=== PATIENT | female | born 1950 | race Caucasian/White ===

== ENCOUNTER → 2017-02-03 | Outpatient (CLI) | payer MEDICARE, OTHER | LOC: RAD 13:00 | PROVIDERS: ATTEND Physician Assistant | DX: R22.1 Localized swelling, mass and lump, neck (principal) | CPT/HCPCS: 76536 ==

== ENCOUNTER → 2017-07-12 | Outpatient (CLI) | payer MEDICARE, OTHER ==
--- NOTE | 2017-07-12 17:50 | RADIOLOGY REPORT (SQ) ---
EXAM DESCRIPTION: CHEST PA/LAT COMPLETED DATE/TIME: 07/12/2017 5:04 pm REASON FOR STUDY: SHORTNESS OF BREATH COMPARISON: 03/17/2016 EXAM PARAMETERS: NUMBER OF VIEWS: two views TECHNIQUE: Digital Frontal and Lateral radiographic views of the chest acquired. RADIATION DOSE: NA LIMITATIONS: none FINDINGS: LUNGS AND PLEURA: There is mild subsegmental atelectasis versus scarring in each lung. Th ere is no acute infiltrate or effusion. No mass is seen. MEDIASTINUM AND HILAR STRUCTURES: No masses or contour abnormalities. HEART AND VASCULAR STRUCTURES: Heart normal size. No evidence for failure. BONES: No acute findings. HARDWARE: Sternotomy wires. OTHER: No other significant finding. IMPRESSION: Chronic changes with no acute cardiopulmonary disease. TECHNICAL DOCUMENTATION: JOB ID: [id number] [employer]- All Rights Reserved
== END ==
LOC: RAD 16:43
PROVIDERS: ATTEND Physician Assistant
DX: R06.02 Shortness of breath (principal)
CPT/HCPCS: 71020

== ENCOUNTER 2017-11-22 04:44 | Inpatient (IN) | payer MEDICARE, OTHER ==
--- NOTE | 2017-11-22 06:54 | ER Document Report ---
ED General - General Time Seen by Provider: 11/22/17 06:51 Notes: 66-year-old female to the emergency department chief complaint shortness of breath. States that she has had increasing shortness of breath over the last several weeks. Increased shortness of breath with ambulation. Increased shortness of breath when lying. History of COPD as well as hypertrophic cardiomyopathy. Intermittent chest pain. TRAVEL OUTSIDE OF THE [place] IN LAST 30 DAYS: No - HPI Onset: Last week Onset/Duration: Gradual Severity: Moderate - Related Data Allergies/Adverse Reactions: No Known Allergies Allergy (Verified 07/31/16 11:37) Past Medical History - General Information source: Patient - Social History Smoking Status: Former Smoker Cigarette use (# per day): Yes Chew tobacco use (# tins/day): No Frequency of alcohol use: Occasional Drug Abuse: None Lives with: Alone Family History: Reviewed & Not Pertinent - Past Medical History Cardiac Medical History: Reports: Hx Hypercholesterolemia Denies: Hx Heart Attack, Hx Hypertension Pulmonary Medical History: Reports: Hx COPD Denies: Hx Asthma Neurological Medical History: Denies: Hx Cerebrovascular Accident, Hx Seizures GI Medical History: Denies: Hx Hepatitis, Hx Hiatal Hernia, Hx Ulcer Musculoskeltal Medical History: Reports Hx Arthritis - RA Infectious Medical History: Denies: Hx Hepatitis Past Surgical History: Reports: Hx Open Heart Surgery - CABG. Denies: Hx Mastectomy, Hx Pacemaker - next month for surg - Immunizations Hx Diphtheria, Pertussis, Tetanus Vaccination: Yes Hx Pneumococcal Vaccination: 08/02/14 Review of Systems - Review of Systems Constitutional: No symptoms reported. denies: Fever, Malaise, Weakness EENT: No symptoms reported. denies: Blurred vision, Ear pain, Difficulty swallowing, Mouth pain Cardiovascular: No symptoms reported, Chest pain, Orthopnea, Dyspnea. denies: Syncope, Dizziness, Lightheaded, Edema, Paroxysmal Nocturnal Dysp Respiratory: No symptoms reported, Cough, Short of breath, Wheezing Gastrointestinal: No symptoms reported. denies: Abdominal pain, Diarrhea, Nausea, Vomiting Genitourinary: No symptoms reported. denies: Burning, Dysuria, Discharge Female Genitourinary: No symptoms reported Musculoskeletal: No symptoms reported. denies: Back pain, Joint pain, Joint swelling Skin: No symptoms reported Hematologic/Lymphatic: No symptoms reported. denies: Anemia, Blood clots, Easy bleeding, Easy bruising Neurological/Psychological: No symptoms reported. denies: Confusion, Dementia, Depression Physical Exam - Vital signs Interpretation: Normal - General General appearance: Appears well, Alert - HEENT Head: Normocephalic, Atraumatic Eyes: Normal Pupils: PERRL - Respiratory Respiratory status: No respiratory distress Chest status: Nontender Breath sounds: Wheezing Chest palpation: Normal - Cardiovascular Rhythm: Regular Heart sounds: Normal auscultation Murmur: No - Abdominal Inspection: Normal Distension: No distension Bowel sounds: Normal Tenderness: Nontender Organomegaly: No organomegaly - Back Back: Normal, Nontender - Extremities General upper extremity: Normal inspection, Nontender, Normal color, Normal ROM , Normal temperature General lower extremity: Normal inspection, Nontender, Normal color, Normal ROM , Normal temperature, Normal weight bearing. No: Estrellita's sign - Neurological Neuro grossly intact: Yes Cognition: Normal Orientation: AAOx4 Christopher Coma Scale Eye Opening: Spontaneous [place] Coma Scale Verbal: Oriented [place] Coma Scale Motor: Obeys Commands Christopher Coma Scale Total: 15 Speech: Normal Motor strength normal: LUE, RUE, LLE, RLE Sensory: Normal - Psychological Associated symptoms: Normal affect, Normal mood - Skin Skin Temperature: Warm Skin Moisture: Dry Skin Color: Normal Course - Re-evaluation Re-evalutation: 11/22/17 07:01 This is a well-appearing female in no acute distress with mild wheeze. Prior smoker. Prior history of open heart surgery with hypertrophic cardiomyopathy. At this time we will give her breathing treatments and prednisone. Will get chest x-ray, labs and reassess. 11/22/17 08:[address] Reyes. Recommends repeat cardiac troponin prior to admission based on the patient's significant cardiac history. Will repeat her troponin. We will give a shot of Lasix. If the second troponin negative will admit to the hospital for congestive heart failure. 11/22/17 09:53 Dr. Reyes is seen patient. No large significant pulmonary defect noted on CT scan but awaiting official radiology read. Troponin has not gone up. Will admit at this time for CHF and further treatment. - Laboratory Result Diagrams: 11/22/17 05:18 11/22/17 05:18 Laboratory results interpreted by me: 11/22/17 11/22/17 11/22/17 05:18 05:18 05:18 RDW 15.5 H BUN 27 H Glucose 114 H AST 79 H ALT 57 H Creatine Kinase CK-MB (CK-2) 4.87 H NT-Pro-B Natriuret Pep 2650 H 11/22/17 05:18 RDW BUN Glucose AST ALT Creatine Kinase 325 H CK-MB (CK-2) NT-Pro-B Natriuret Pep - EKG Interpretation by Al EKG shows normal: Sinus rhythm [place]/QRS: LBBB When compared to previous EKG there are: No significant change Discharge - Discharge Clinical Impression: Heart failure Qualifiers: Heart failure type: unspecified Heart failure chronicity: acute on chronic Qualified Code(s): I50.9 - Heart failure, unspecified Disposition: ADMITTED INPATIENT Admitting Provider: Leonel Unit Admitted: [facility] - Dr. Reyes Referrals: RISHABH REYES MD [Primary Care Provider] - Follow up as needed
[2017-11-22] MEDS ORDERED: PREDNISONE 20 MG TABLET PO ONE (06:58)
[2017-11-22] MEDS ORDERED: IPRATROPIUM BROMIDE 0.02% NEB 0.5 MG/2.5 ML AMPUL NEB ONE (06:58)
--- NOTE | 2017-11-22 07:14 | RADIOLOGY REPORT (SQ) ---
EXAM DESCRIPTION: CHEST PA/LAT CLINICAL HISTORY: SOB COMPARISON: 07/12/2017 FINDINGS: Frontal and lateral views of the chest. Cardiomegaly. Bilateral interstitial opacities. Prior median sternotomy. Atherosclerotic calcification aortic arch. Linear left midlung opacity is stable likely representing discoid atelectasis or scar. No pneumothorax. No definite pleural effusion. Leads overlie the chest. Upper abdominal soft tissues are unremarkable. IMPRESSION: 1. Cardiomegaly with interstitial pulmonary edema.
[2017-11-22] MEDS ORDERED: FUROSEMIDE INJ/PF 40 MG/4 ML SDV IV ONE (07:52)
[2017-11-22 07:55] LABS: ABSOLUTE EOSINOPHILS # (AUTO) 0.1 10^3/uL (0.0-0.6); ABSOLUTE LYMPHOCYTES (AUTO) 2.1 10^3/uL (0.5-4.7); ABSOLUTE MONOCYTES (AUTO) 0.5 10^3/uL (0.1-1.4); ABSOLUTE NEUT (AUTO) 2.8 10^3/uL (1.7-8.2); BASOPHILS % (AUTO) 0.4 % (0-2); EOSINOPHILS % (AUTO) 1.6 % (0-6); HEMATOCRIT 36.1 % (36.0-47.0); LYMPHOCYTES % (AUTO) 38.1 % (13-45); MEAN CORPUSCULAR HEMOGLOBIN 29.7 pg (27.0-33.4); MEAN CORPUSCULAR HGB CONC 33.2 g/dL (32.0-36.0); MEAN CORPUSCULAR VOLUME 90 fl (80-97); MONOCYTES % (AUTO) 9.1 % (3-13); PLATELET COUNT 212 10^3/uL (150-450); RED BLOOD COUNT 4.03 10^6/uL (3.72-5.28); RED CELL DISTRIBUTION WIDTH 15.5 % (11.5-14.0); SEGMENTED NEUTROPHILS % (AUTO) 50.8 % (42-78); TOTAL CELLS COUNTED % (AUTO) 100 %; WHITE BLOOD COUNT 5.4 10^3/uL (4.0-10.5)
[2017-11-22 07:58] LABS: INTERNATIONAL RATION (INR) 0.96; PROTHROMBIN TIME 13.5 SEC (11.4-15.4)
[2017-11-22 07:59] LABS: PARTIAL THROMBOPLASTIN TIME 32.8 SEC (23.5-35.8)
--- NOTE | 2017-11-22 07:59 | EKG REPORT ---
SEVERITY:- ABNORMAL ECG - SINUS RHYTHM LEFT BUNDLE BRANCH BLOCK : Confirmed by: Chris Mohr MD 22-Nov-2017 07:58:23
[2017-11-22 08:08] LABS: ALANINE AMINOTRANSFERASE 57 U/L (9-52); ALBUMIN 4.5 g/dL (3.5-5.0); ALKALINE PHOSPHATASE 109 U/L (38-126); ANION GAP 12 (5-19); ASPARTATE AMINO TRANSFERASE 79 U/L (14-36); BILIRUBIN,DIRECT 0.2 mg/dL (0.0-0.4); BILIRUBIN,TOTAL 0.5 mg/dL (0.2-1.3); BLOOD UREA NITROGEN 27 mg/dL (7-20); CALCIUM 9.7 mg/dL (8.4-10.2); CARBON DIOXIDE 25 mmol/L (22-30); CHLORIDE 107 mmol/L (98-107); GLUCOSE 114 mg/dL (75-110); POTASSIUM 4.5 mmol/L (3.6-5.0); SODIUM 143.8 mmol/L (137-145); TOTAL PROTEIN 7.2 g/dL (6.3-8.2)
[2017-11-22 08:19] LABS: CREATINE KINASE MB 4.87 ng/mL (<4.55); TROPONIN I 0.031 ng/mL
[2017-11-22] MEDS ORDERED: ACETAMINOPHEN 325 MG TABLET PO PRN (09:43)
--- NOTE | 2017-11-22 10:01 | RADIOLOGY REPORT (SQ) ---
EXAM DESCRIPTION: CTA CHEST COMPLETED DATE/TIME: 11/22/2017 9:44 am REASON FOR STUDY: sob COMPARISON: Two-view chest 11/22/2017 CT chest 03/11/2016, 10/11/2014 TECHNIQUE: CT scan of the chest performed using helical scanning technique with dynamic intravenous contrast injection. Images reviewed with lung, soft tissue and bone windows. Reconstructed coronal and sagittal MPR images reviewed. Additional 3 dimensional post-processing performed to develop Maximal Intensity Projection images (ID P). All images stored on PACS. All CT scanners at this facility use dose modulation, iterative reconstruction, and/or weight based d osing when appropriate to reduce radiation dose to as low as reasonably achievable (ALARA). [facility]: Dose Right [facility]: CareDose [facility]: Dose Right [facility]: Teradose 4D [facility]: Nangate CONTRAST TYPE AND DOSE: contrast/concentration: Isovue 370.00 mg/ml; Total Contrast Delivered: 73.0 ml; Total Saline Delivered: 76.8 ml Contrast bolus optimized for the pulmonary arteries. Not diagnostic for the aorta. RENAL FUNCTION: Creatinine 0.8 RADIATION DOSE: CT Rad equipment meets quality standard of care and radiation dose reduction techniq ues were employed. CTDIvol: 19.3 - 19.8 mGy. DLP: 715 mGy-cm. . LIMITATIONS: None. FINDINGS: LUNGS AND PLEURA: There is thickening of interlobular septa worrisome for mild interstitia l edema. This is similar compared to chest film 11/22/2017. Set chronic reticulonodular infiltrate is seen in the posterior aspect right upper lobe, and medial a spect left upper lobe similar compared to studies dating back to 2014. However, in the posterior rig ht upper lobe on axial image 31, a 5 mm lung parenchymal nodule is present, and on axial image 36 in the periphery of the right upper lobe, a 6 mm nodule is present. There is chronic volume loss and bronchiectasis in the right middle lobe and lingula, similar compare d to studies dating back to 2014. No pleural effusion. No pneumothorax. Airways are patent. AORTA AND GREAT VESSELS: No aneurysm. Contrast bolus not optimized for the aorta. HEART: No pericardial effusion. Mild aortic valve calcification. Old sternotomy for CABG. Mild card iomegaly PULMONARY ARTERIES: No emboli visualized in the main pulmonary arteries or the segmental branches. HILAR AND MEDIASTINAL STRUCTURES: Few small less than 7 mm short axis precarinal, AP window and bilat eral hilar lymph nodes HARDWARE: None in the chest. UPPER ABDOMEN: 3 cm cyst right upper pole kidney unchanged. THYROID AND OTHER SOFT TISSUES: No masses. No adenopathy. BONES: No acute or significant finding. 3D MIPS: Confirm above findings. OTHER: No other significant finding. IMPRESSION: No CT angio evidence of acute pulmonary emboli or thoracic aortic dissection. Thickened interlobular septa from mild interstitial edema. 5 mm and 6 mm nodules in the periphery of the right upper lobe, new compared to prior studies. Consi rojelio follow-up as per Fleischner recommendations COMMENT: FLEISCHNER CRITERIA FOR FOLLOW-UP OF PULMONARY NODULES Incidentally detected new nodules in persons 35 or older. HIGH RISK: History of smoking or other known risk factors. 6-8mm single solid nodule: LOW RISK: CT 6-12 mo; then consider CT 18-24 mo. HIGH RISK: CT 6-12 mo; th en CT 18-24 mo. Quality ID # [id number]: Final reports with documentation of one or more dose reduction techniques (e.g., Au tomated exposure control, adjustment of the mA and/or kV according to patient size, use of iterative reconstruction technique) TECHNICAL DOCUMENTATION: JOB ID: [id number] [employer]- All Rights Reserved
[2017-11-22 11:21] LABS: APPEARANCE,URINE CLEAR; BILIRUBIN,URINE NEGATIVE (NEGATIVE); COLOR,URINE COLORLESS; GLUCOSE, URINE NEGATIVE (NEGATIVE); KETONES,URINE NEGATIVE (NEGATIVE); LEUKOCYTE ESTERASE,URINE NEGATIVE (NEGATIVE); NITRITE,URINE NEGATIVE (NEGATIVE); PROTEIN,URINE NEGATIVE (NEGATIVE); URINE SPECIFIC GRAVITY 1.009; UROBILINOGEN,URINE NEGATIVE mg/dL (<2.0)
[2017-11-22] MEDS ORDERED: METRONIDAZOLE TP PRN ×2 (11:46→13:00)
[2017-11-22] MEDS ORDERED: ADAPALENE TP PRN ×2 (11:46→13:00)
[2017-11-22] MEDS ORDERED: ENOXAPARIN SODIUM INJ 40 MG/0.4 ML DISP.SYRIN SUBCUT ONE (12:00)
[2017-11-22] MEDS ORDERED: LEVOFLOXACIN 500 MG TABLET PO ONE (12:30)
[2017-11-22] MEDS: IPRATROPIUM/ALBUTEROL 0.5-2.5 MG/3 ML AMPUL NEB SCH ×2 (13:04→20:13)
[2017-11-22 13:28] LABS: CREATINE KINASE MB 4.78 ng/mL (<4.55); TROPONIN I 0.02 ng/mL
[2017-11-22] MEDS: FUROSEMIDE INJ/PF 20 MG/2 ML SDV IV SCH ×2 (15:23→22:12)
[2017-11-22] MEDS: METHYLPREDNISOLONE INJ 40 MG/1 ML SDV IV SCH ×2 (15:24→22:13)
--- NOTE | 2017-11-22 15:36 | PDOC H&P ---
History of Present Illness Admission Date/PCP: 11/22/17 10:16 RISHABH REYES MD Patient complains of: Shortness of the breath History of Present Illness: RACHEAL ALBA is a 66 year old female Presents to the ED with increasing shortness of breath over the last several days. History of asthma in the past as well as history of smoking in the past she has a cough is dry nonproductive she denies hemoptysis her PPD was negative dates unknown is no history of chronic lung disease as a child or adolescent she denies exposure to passive smoke as a child but admits to exposure to smoke passive smoke as an adult as well as the fact that she herself smoked. 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 She admits to tightness in her chest usually occurs with rest and decreases somewhat with movement she sleeps on one pillow occasional PND no nocturnal cough no edema. 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 the lungIn patients was referred at the pulmonary as outpatient seen the and also patient was methotrexate was stopped by the clinical team manager and currently taking the newer medications Patient also have a heart muscle surgery done the [place] due to the cardiomyopathy currently see the cardiology at [place] and was all okay according to the patient When I saw the patient in the ER patient was comfortably lying in the bed no chest pain no shortness of the breath but feeling some tightness in the chest and a CT angiogram was ordered because of the patient was short of breath but move around was negative for any pulmonary embolism Past Medical History Cardiac Medical History: Reports: Hyperlipidema Denies: Myocardial Infarction, Hypertension Pulmonary Medical History: Reports: Chronic Obstructive Pulmonary Disease (COPD) Denies: Asthma Neurological Medical History: Denies: Seizures GI Medical History: Denies: Hepatitis, Hiatal Hernia Musculoskeltal Medical History: Reports: Arthritis - RA Musculoskeletal History Note: Rheumatoid arthritis currently see the clinical team manager Hematology: Denies: Anemia, Sickle Cell Disease Past Surgical History Past Surgical History: Reports: Other - Cardiac heart muscle surgery Denies: Amputation, Mastectomy, Pacemaker - next month for surg Social History Lives with: Alone Smoking Status: Former Smoker Frequency of Alcohol Use: Social Hx Recreational Drug Use: No Hx Prescription Drug Abuse: No Family History Family History: COPD Parental Family History Reviewed: Yes Children Family History Reviewed: Yes Sibling(s) Family History Reviewed.: Yes Medication/Allergy Home Medications: Adapalene [Differin] 45 gm TP ASDIR PRN 11/22/17 Bisoprolol Fumarate [Zebeta 5 mg Tablet] 1 tab PO DAILY 11/22/17 Gabapentin [Neurontin 300 mg Capsule] 300 mg PO QHS 11/22/17 Metronidazole [Metrogel] 60 gm TP ASDIR PRN 11/22/17 Pantoprazole Sodium [Protonix] 40 mg PO DAILY 11/22/17 Paroxetine HCl [Paxil] 40 mg PO DAILY 11/22/17 Sulfasalazine [Azulfidine] 500 mg PO BID 11/22/17 Allergies/Adverse Reactions: No Known Allergies Allergy (Verified 07/31/16 11:37) Review of Systems Constitutional: ABSENT: chills, fever(s), headache(s), weight gain, weight loss Eyes: ABSENT: visual disturbances Ears: ABSENT: hearing changes Cardiovascular: PRESENT: chest pain, dyspnea on exertion. ABSENT: edema, orthropnea, palpitations Respiratory: PRESENT: cough, dyspnea. ABSENT: hemoptysis Gastrointestinal: ABSENT: abdominal pain, constipation, diarrhea, hematemesis, hematochezia, nausea, vomiting Genitourinary: ABSENT: dysuria, hematuria Musculoskeletal: ABSENT: joint swelling Integumentary: ABSENT: rash, wounds Neurological: ABSENT: abnormal gait, abnormal speech, confusion, dizziness, focal weakness, syncope Psychiatric: ABSENT: anxiety, depression, homidical ideation, suicidal ideation Endocrine: ABSENT: cold intolerance, heat intolerance, menstrual abnormalities, polydipsia, polyuria Hematologic/Lymphatic: ABSENT: easy bleeding, easy bruising, lymphadenopathy Physical Exam Vital Signs: Temp Pulse Resp BP Pulse Ox 53 L 16 146/66 H 96 11/22/17 13:05 11/22/17 13:05 11/22/17 09:16 11/22/17 09:16 Intake & Output 11/21/17 11/22/17 11/23/17 06:59 06:59 06:59 Weight 80.5 kg General appearance: PRESENT: no acute distress, well-developed, well-nourished Head exam: PRESENT: atraumatic, normocephalic Eye exam: PRESENT: conjunctiva pink, EOMI, PERRLA. ABSENT: scleral icterus Ear exam: PRESENT: normal external ear exam Mouth exam: PRESENT: moist, tongue midline Neck exam: PRESENT: full ROM. ABSENT: carotid bruit, JVD, lymphadenopathy, thyromegaly Respiratory exam: PRESENT: decreased breath sounds, wheezes Cardiovascular exam: PRESENT: RRR. ABSENT: diastolic murmur, rubs, systolic murmur Pulses: PRESENT: normal dorsalis pedis pul, +2 pedal pulses bilateral Vascular exam: PRESENT: normal capillary refill GI/Abdominal exam: PRESENT: normal bowel sounds, soft. ABSENT: distended, guarding, mass, organolmegaly, rebound, tenderness Rectal exam: PRESENT: deferred Extremities exam: PRESENT: pedal edema Musculoskeletal exam: PRESENT: ambulatory Neurological exam: PRESENT: alert, awake, oriented to person, oriented to place , oriented to time, oriented to situation, CN II-XII grossly intact. ABSENT: motor sensory deficit Psychiatric exam: PRESENT: appropriate affect, normal mood. ABSENT: homicidal ideation, suicidal ideation Skin exam: PRESENT: dry, intact, warm. ABSENT: cyanosis, rash Results Laboratory Results: 11/22/17 11:07 Urine Color COLORLESS Urine Appearance CLEAR Urine pH 6.0 Ur Specific [place] 1.009 Urine Protein NEGATIVE Urine Glucose (UA) NEGATIVE Urine Ketones NEGATIVE Urine Blood SMALL H Urine Nitrite NEGATIVE Ur Leukocyte Esterase NEGATIVE Urine WBC (Auto) 0 Urine RBC (Auto) 0 11/22/17 11/22/17 12:25 12:25 Creatine Kinase 300 H CK-MB (CK-2) 4.78 H Troponin I 0.020 Impressions: Chest X-Ray 11/22/17 00:00 IMPRESSION: 1. Cardiomegaly with interstitial pulmonary edema. Chest/Abdomen CTA 11/22/17 09:05 IMPRESSION: No CT angio evidence of acute pulmonary emboli or thoracic aortic dissection. Thickened interlobular septa from mild interstitial edema. 5 mm and 6 mm nodules in the periphery of the right upper lobe, new compared to prior studies. Consider follow-up as per Fleischner recommendations Assessment & Plan - Diagnosis (1) Shortness of breath Is this a current diagnosis for this admission?: Yes Plan: With the multifactorial including the congestive heart failure with some COPD component Patient CT angiogram is negative for any pulmonary embolisms initial EKG and cardiac enzymes also negative Will continue some nebulizer treatments continues to IV steroidAnd IV Lasix We will consult the pulmonary and consult the cardiology for further evaluations (2) Congestive heart failure Qualifiers: Heart failure type: diastolic Heart failure chronicity: unspecified Qualified Code(s): I50.30 - Unspecified diastolic (congestive) heart failure Is this a current diagnosis for this admission?: Yes Plan: Scheduled echocardiogram of the heart and consult the cardiology (3) COPD with acute exacerbation Is this a current diagnosis for this admission?: Yes Plan: 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 we will review the CT scan report with the pulmonary continues to current medications: Nebulizer (4) Hypertension Qualifiers: Hypertension type: essential hypertension Qualified Code(s): I10 - Essential (primary) hypertension Is this a current diagnosis for this admission?: Yes Plan: Currently all stable (5) Rheumatoid arthritis Qualifiers: Rheumatoid arthritis location: unspecified site Is this a current diagnosis for this admission?: Yes Plan: Patient's currently follow outpatients clinical team manager (6) Hypertrophic cardiomyopathy Is this a current diagnosis for this admission?: Yes Plan: Scheduled echocardiogram consult the cardiology - Time Time Spent: 30 to 50 Minutes Medications reviewed and adjusted accordingly: Yes Anticipated discharge: Home Within: Other - Inpatient Certification Medical Necessity: Need Close Monitoring Due to Risk of Patient Decompensation, Need For IV Fluids, Need for IV Antibiotics Post Hospital Care: D/C Forest Management Teacher Documentation - Plan Summary Plan Summary: Discussed with the patient and the discussed with the home planning consultant salesperson about patient' s current conditions and the test reports admit the patient in IMCU and further evaluate
--- NOTE | 2017-11-22 16:13 | PDOC CONSULTATION ---
Consultation Consult Date: 11/22/17 Attending physician:: RISHABH REYES Consult reason:: dyspnea History of Present Illness Admission Date/PCP: 11/22/17 10:16 RISHABH REYES MD History of Present Illness: RACHEAL ALBA is a 66 year old female Presents to the ED with increasing shortness of breath over the last several days. History of asthma in the past as well as history of smoking in the past she has a cough is dry nonproductive she denies hemoptysis her PPD was negative dates unknown is no history of chronic lung disease as a child or adolescent she denies exposure to passive smoke as a child but admits to exposure to smoke passive smoke as an adult as well as the fact that she herself smoked. 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 She admits to tightness in her chest usually occurs with rest and decreases somewhat with movement she sleeps on one pillow occasional PND no nocturnal cough no edema. She admits to snoring restless sleep nocturia 1-2 times per night unrestful sleep and excessive daytime somnolence Past Medical History Cardiac Medical History: Reports: Hyperlipidema Denies: Myocardial Infarction, Hypertension Pulmonary Medical History: Reports: Chronic Obstructive Pulmonary Disease (COPD) Denies: Asthma Neurological Medical History: Denies: Seizures GI Medical History: Denies: Hepatitis, Hiatal Hernia Musculoskeltal Medical History: Reports: Arthritis - RA Hematology: Denies: Anemia, Sickle Cell Disease Past Surgical History Past Surgical History: Denies: Amputation, Mastectomy, Pacemaker - next month for surg Social History Information Source: Patient, Dr. Office Lives with: Alone Smoking Status: Former Smoker Cigarettes Packs Per Day: 2 Number of Years Smokin Last Time Smoked: 30 yrs Passive smoke exposure as: Adult Frequency of Alcohol Use: Social Hx Recreational Drug Use: No Hx Prescription Drug Abuse: No Do you have pets?: Yes Have you had any respiratory illnesses as a child?: No Have you been exposed to any sick contacts recently?: No Have you had any recent respiratory illnesses?: Yes Have you travelled outside of [place] in the past 12 months?: No Family History Family History: COPD Parental Family History Reviewed: Yes Children Family History Reviewed: Yes Sibling(s) Family History Reviewed.: Yes Medication/Allergy Home Medications: Adapalene [Differin] 45 gm TP ASDIR PRN 11/22/17 Bisoprolol Fumarate [Zebeta 5 mg Tablet] 1 tab PO DAILY 11/22/17 Gabapentin [Neurontin 300 mg Capsule] 300 mg PO QHS 11/22/17 Metronidazole [Metrogel] 60 gm TP ASDIR PRN 11/22/17 Pantoprazole Sodium [Protonix] 40 mg PO DAILY 11/22/17 Paroxetine HCl [Paxil] 40 mg PO DAILY 11/22/17 Sulfasalazine [Azulfidine] 500 mg PO BID 11/22/17 Allergies/Adverse Reactions: No Known Allergies Allergy (Verified 07/31/16 11:37) Review of Systems Constitutional: PRESENT: chills. ABSENT: anorexia, fatigue, fever(s), headache( s), night sweats Eyes: ABSENT: visual disturbances Ears: ABSENT: hearing changes Nose, Mouth, and Throat: ABSENT: mouth pain, sore throat Cardiovascular: PRESENT: chest pain, dyspnea on exertion. ABSENT: orthropnea, palpitations Respiratory: PRESENT: dyspnea. ABSENT: hemoptysis Gastrointestinal: ABSENT: abdominal pain, bloating, coffee ground emesis, dysphagia, hematemesis, hematochezia, melena Genitourinary: PRESENT: nocturia. ABSENT: difficulty urinating, dysuria, hematuria Integumentary: ABSENT: pruritus, rash Neurological: ABSENT: abnormal gait, abnormal movements, abnormal speech, confusion, convulsions, dizziness, focal weakness, memory loss, numbness, paresthesias, restless legs, tremor(s), weakness Psychiatric: ABSENT: hallucinations, suicidal ideation Endocrine: ABSENT: cold intolerance, heat intolerance, menstrual abnormalities, polydipsia, polyuria Hematologic/Lymphatic: ABSENT: easy bleeding, easy bruising, lymphadenopathy Physical Exam Vital Signs: Temp Pulse Resp BP Pulse Ox 50 L 20 146/66 H 96 11/22/17 09:16 11/22/17 09:16 11/22/17 09:16 11/22/17 09:16 Intake & Output 11/21/17 11/22/17 11/23/17 06:59 06:59 06:59 Weight 80.5 kg General appearance: PRESENT: no acute distress, cooperative, disheveled, obese, well-developed, well-nourished. ABSENT: hard of hearing Head exam: PRESENT: atraumatic, normocephalic Eye exam: PRESENT: conjunctiva pale, EOMI, PERRLA. ABSENT: nystagmus, periorbital swelling, scleral icterus Mouth exam: PRESENT: dry mucosa, neck supple, tongue midline Neck exam: ABSENT: carotid bruit, JVD, lymphadenopathy, thyromegaly, tracheal deviation, tracheostomy Respiratory exam: PRESENT: decreased breath sounds, prolonged expiratory phas, rhonchi, symmetrical, unlabored. ABSENT: accessory muscle use, chest wall tenderness, clear to auscultation lauren, crackles, rales, retraction, stridor, tachypnea Cardiovascular exam: PRESENT: RRR, +S1, +S2. ABSENT: systolic murmur, tachycardia Pulses: PRESENT: normal radial pulses GI/Abdominal exam: PRESENT: diminished bowel sounds, soft Extremities exam: PRESENT: full ROM. ABSENT: calf tenderness, clubbing, joint swelling Musculoskeletal exam: PRESENT: ambulatory, full ROM, normal inspection. ABSENT : deformity, dislocation Neurological exam: PRESENT: alert, awake Psychiatric exam: PRESENT: normal mood Skin exam: PRESENT: dry Results Laboratory Results: 11/22/17 11:07 Urine Color COLORLESS Urine Appearance CLEAR Urine pH 6.0 Ur Specific [place] 1.009 Urine Protein NEGATIVE Urine Glucose (UA) NEGATIVE Urine Ketones NEGATIVE Urine Blood SMALL H Urine Nitrite NEGATIVE Ur Leukocyte Esterase NEGATIVE Urine WBC (Auto) 0 Urine RBC (Auto) 0 Impressions: Chest X-Ray 11/22/17 00:00 IMPRESSION: 1. Cardiomegaly with interstitial pulmonary edema. Chest/Abdomen CTA 11/22/17 09:05 IMPRESSION: No CT angio evidence of acute pulmonary emboli or thoracic aortic dissection. Thickened interlobular septa from mild interstitial edema. 5 mm and 6 mm nodules in the periphery of the right upper lobe, new compared to prior studies. Consider follow-up as per Fleischner recommendations Assessment & Plan - Diagnosis (1) Snoring Is this a current diagnosis for this admission?: Yes Plan: Needs a sleep study after this (2) Obesity Qualifiers: Body mass index: BMI 33.0-33.9 Is this a current diagnosis for this admission?: Yes (3) Hypertrophic cardiomyopathy Is this a current diagnosis for this admission?: Yes Plan: Dr. Jcarlos Carmona assembler brazer [facility] (4) History of tobacco use Is this a current diagnosis for this admission?: Yes - Time Time Spent with patient: 55 minutes spent in the emergency room
[2017-11-22] MEDS ORDERED: SULFASALAZINE 500 MG PO SCH (18:00)
[2017-11-22 18:37] LABS: CREATINE KINASE MB 4.46 ng/mL (<4.55); TROPONIN I 0.02 ng/mL
--- NOTE | 2017-11-22 19:55 | PDOC CONSULTATION ---
Consultation Consult Date: 11/22/17 Attending physician:: RISHABH REYES Consult reason:: Shortness of breath History of Present Illness Admission Date/PCP: 11/22/17 10:16 RISHABH REYES MD Patient complains of: Shortness of breath History of Present Illness: RACHEAL ALBA is a 66 year old femal presents to the ED with increasing shortness of breath over the last several days. History of asthma in the past as well as history of smoking in the past. She has a cough is dry nonproductive. She denies hemoptysis. Her PPD was negative dates unknown. There is no history of chronic lung disease as a child or adolescent. She denies exposure to passive smoke as a child but admits to exposure to smoke passive smoke as an adult as well as the fact that she herself smoked. 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 She admits to tightness in her chest usually occurs with rest and decreases somewhat with movement she sleeps on one pillow occasional PND no nocturnal cough no edema. She admits to snoring, restless sleep, nocturia 1-2 times per night unrestful sleep and excessive daytime somnolence. This history was reviewed and confirmed. Patient claims that she had a sleep study about a year ago which she reportedly was negative. It was performed at a sleep lab on [facility]. 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 She does describe history of congestive heart failure. Patient claims stiffening and thickening of the heart. Patient claims she had a myomectomy. I believe she probably had hypertrophic obstructive cardiomyopathy. A defibrillator or pacemaker was not placed at that time although there was some talk about this being placed. This procedure were done at [facility]. Past Medical History Cardiac Medical History: Reports: Hyperlipidema Denies: Myocardial Infarction, Hypertension Pulmonary Medical History: Reports: Chronic Obstructive Pulmonary Disease (COPD) Denies: Asthma Neurological Medical History: Denies: Seizures GI Medical History: Denies: Hepatitis, Hiatal Hernia Musculoskeltal Medical History: Reports: Arthritis - RA Hematology: Denies: Anemia, Sickle Cell Disease Past Surgical History Past Surgical History: Reports: Other - Cardiac heart muscle surgery. Patient describes history of myomectomy. Denies: Amputation, Mastectomy, Pacemaker - next month for surg Social History Information Source: Patient Lives with: Alone Smoking Status: Former Smoker Cigarettes Packs Per Day: 2 Number of Years Smokin Last Time Smoked: 30 yrs Frequency of Alcohol Use: Social Hx Recreational Drug Use: No Hx Prescription Drug Abuse: No - Advance Directive Resuscitation Status: Full Code Surrogate healthcare decision maker:: Daughter Family History Family History: COPD Parental Family History Reviewed: Yes Children Family History Reviewed: Yes Sibling(s) Family History Reviewed.: Yes Medication/Allergy Home Medications: Adapalene [Differin] 45 gm TP ASDIR PRN 11/22/17 Bisoprolol Fumarate [Zebeta 5 mg Tablet] 1 tab PO DAILY 11/22/17 Gabapentin [Neurontin 300 mg Capsule] 300 mg PO QHS 11/22/17 Metronidazole [Metrogel] 60 gm TP ASDIR PRN 11/22/17 Pantoprazole Sodium [Protonix] 40 mg PO DAILY 11/22/17 Paroxetine HCl [Paxil] 40 mg PO DAILY 11/22/17 Sulfasalazine [Azulfidine] 500 mg PO BID 11/22/17 Aspirin [Ecotrin 81 mg EC Tablet] 81 mg PO DAILY 11/23/17 Bisoprolol Fumarate [Zebeta 5 mg Tablet] 1 tab PO DAILY 11/23/17 Ranolazine [Ranexa] 1,000 mg PO DAILY 11/23/17 Allergies/Adverse Reactions: No Known Allergies Allergy (Verified 07/31/16 11:37) Review of Systems Review of Systems: Please see history of present illness and past medical history as wall. Constitutional: No fever or chills reported. Head : No recent chronic headaches, recent head injury. Eyes: No recent eye pain, diplopia, redness, discharge, acute visual changes. Ears: No recent chronic ear pain, acute hearing loss, ear discharge. Oral cavity: No recent ulcerations, bleeding, oral cavity discomfort. Neck: No recent acute neck pain reported. Hematologic: No recent easy bruising or bleeding or hematologic malignancy reported. Lymphatic: No recent lymphatic malignancy, chronic lymphadenopathy reported yet Cardiovascular system review: See history of present illness. Patient denied any history of sustained palpitations, syncope, near syncope. Respiratory system review: No recent chronic cough, hemoptysis, blood clots in the lungs reported. Mild Shortness of breath on exertion Gastrointestinal system review: Negative for any recent acute or chronic abdominal pain, hematemesis, melena, recent change in bowel habits. Genitourinary system review: No recent acute or chronic hematuria, flank pain, UTI etc. reported. Skin system review: Negative for any recent abnormal bruising, no rash, no pruritus reported. Neurologic: No prior history of strokes, mini strokes, seizure disorder. Patient describes history of snoring, waking up choking. Psychologic: No history of major psychosis or major depression reported. Musculoskeletal: Minor aches and pains reported. No acute joint swelling reported. Endocrine: No recent polyuria, polydipsia, recent heat or cold intolerance. Physical Exam Vital Signs: Temp Pulse Resp BP Pulse Ox 99.0 F 64 18 117/56 L 98 11/22/17 18:00 11/22/17 18:00 11/22/17 18:00 11/22/17 18:00 11/22/17 18:00 Intake & Output 11/21/17 11/22/17 11/23/17 06:59 06:59 06:59 Weight 80.5 kg Exam: GENERAL: well-nourished and in no acute distress. Alert and oriented x3 HEAD: Atraumatic, normocephalic. EYES: Pupils equal round and reactive to light, extraocular movements intact, sclera anicteric, conjunctiva are normal. ENT: TMs normal, nares patent, oropharynx clear without exudates. Moist mucous membranes. No oral ulcerations or bleeding gums noted NECK: supple without lymphadenopathy. Trachea is central. No cervical or axillary lymphadenopathy noted. Carotids are 2+, JVD WNL LUNGS: Respiration seems nonlabored, no significant accessory muscle action noted. Breath sounds clear to auscultation bilaterally and equal noted. No wheezes rales or rhonchi noted. No significant dullness noted on percussion. CHEST: Palpation of the chest wall shows no significant chest wall tenderness. No other significant abnormalities noted. 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 ABDOMEN: Soft, no significant tenderness appreciated, normoactive bowel sounds. No guarding, no rebound. No rigidity noted . No masses appreciated. EXTREMITIES: Pedal pulses are 1-2+, no calf tenderness noted. No clubbing or cyanosis.trace to 1+ pedal edema noted NEUROLOGICAL: Focused neurological exam showed no significant neurologic deficit. Normal speech, no focal weakness appreciated. PSYCH: Normal mood, normal affect. Judgment and insight within normal limits. SKIN: No significant ecchymosis, rash, ulcerations or signs of pruritus noted. MUSCULOSKELETAL EXAM: No significant joint swelling noted. Results Laboratory Results: 11/22/17 11:07 Urine Color COLORLESS Urine Appearance CLEAR Urine pH 6.0 Ur Specific [place] 1.009 Urine Protein NEGATIVE Urine Glucose (UA) NEGATIVE Urine Ketones NEGATIVE Urine Blood SMALL H Urine Nitrite NEGATIVE Ur Leukocyte Esterase NEGATIVE Urine WBC (Auto) 0 Urine RBC (Auto) 0 11/22/17 11/22/17 11/22/17 12:25 12:25 17:25 Creatine Kinase 300 H 268 H CK-MB (CK-2) 4.78 H Troponin I 0.020 11/22/17 17:25 Creatine Kinase CK-MB (CK-2) 4.46 Troponin I 0.020 EKG Comments: Sinus rhythm, left axis deviation, left bundle branch block type pattern Impressions: Chest X-Ray 11/22/17 00:00 IMPRESSION: 1. Cardiomegaly with interstitial pulmonary edema. Chest/Abdomen CTA 11/22/17 09:05 IMPRESSION: No CT angio evidence of acute pulmonary emboli or thoracic aortic dissection. Thickened interlobular septa from mild interstitial edema. 5 mm and 6 mm nodules in the periphery of the right upper lobe, new compared to prior studies. Consider follow-up as per Fleischner recommendations Assessment & Plan - Diagnosis (1) Dyspnea Qualifiers: Dyspnea type: dyspnea on exertion Qualified Code(s): R06.09 - Other forms of dyspnea Is this a current diagnosis for this admission?: Yes (2) COPD with acute exacerbation Is this a current diagnosis for this admission?: Yes (3) Congestive heart failure Qualifiers: Heart failure type: diastolic Heart failure chronicity: unspecified Qualified Code(s): I50.30 - Unspecified diastolic (congestive) heart failure Is this a current diagnosis for this admission?: Yes (4) Hypertension Qualifiers: Hypertension type: essential hypertension Qualified Code(s): I10 - Essential (primary) hypertension Is this a current diagnosis for this admission?: Yes (5) Hypertrophic cardiomyopathy Is this a current diagnosis for this admission?: Yes (6) Obesity Qualifiers: Obesity type: unspecified obesity type Body mass index: BMI 33.0-33.9 Is this a current diagnosis for this admission?: Yes (7) Chest tightness Is this a current diagnosis for this admission?: Yes - Notes Notes: Dyspnea: Most likely related to combination of CHF and COPD with exacerbation. Patient currently feeling much better. This is related to both diuresis and treatment of COPD. A 2D echo was ordered. Further evaluation will be planned after review of 2D echo. Congestive heart failure: BNP is elevated. Patient has abnormal EKG with left bundle branch block pattern. At this point patient will benefit from CHF pathway. Further plans will follow after results of 2D echo are available. Hypertension: Blood pressure goal should be less than 135/85 in patients with CHF. Cardiomyopathy: Presumably hypertrophic cardiomyopathy based on history of surgery. Patient has been told to report any overt syncope, near syncope. Chest Tightness: possible CHF and diastolic dysfuction vs COPD vs angina. Enzymes and ekgs currently negative. Obesity: Patient will benefit from weight loss. Sleep disorder: I believe patient has high probability of underlying sleep apnea. It may be worthwhile to consider repeating the sleep study. This will be scheduled as an outpatient. - Time Time Spent: 30 to 50 Minutes - CODE STATUS was discussed, patient remains full code. Surrogate decision-maker patient's friend. Multiple medical problems were addressed. More than 50% of the time spent coordinating care, discussing management plans with involved caregivers. Management plans discussed with involved personnels. Medical decision making was of moderate to high complexity , patient's has multiple comorbidities. Medications reviewed and adjusted accordingly: Yes
[2017-11-22] MEDS: GABAPENTIN 300 MG CAPSULE PO SCH (22:13)
[2017-11-22] MEDS: SULFASALAZINE 500 MG TABLET.DR PO SCH (22:14)
[2017-11-23 00:07] LABS: CREATINE KINASE MB 3.69 ng/mL (<4.55); TROPONIN I 0.023 ng/mL
[2017-11-23] MEDS: IPRATROPIUM/ALBUTEROL 0.5-2.5 MG/3 ML AMPUL NEB SCH ×4 (02:01→20:24)
[2017-11-23] MEDS: METHYLPREDNISOLONE INJ 40 MG/1 ML SDV IV SCH ×3 (06:13→22:00)
[2017-11-23] MEDS: LANSOPRAZOLE 30 MG TAB.RAP.DR PO SCH (06:13)
[2017-11-23] MEDS: FUROSEMIDE INJ/PF 20 MG/2 ML SDV IV SCH ×3 (06:13→22:00)
[2017-11-23 07:05] LABS: HEMATOCRIT 37.6 % (36.0-47.0); HEMOGLOBIN 12.9 g/dL (12.0-15.5); MEAN CORPUSCULAR HEMOGLOBIN 30.2 pg (27.0-33.4); MEAN CORPUSCULAR HGB CONC 34.2 g/dL (32.0-36.0); MEAN CORPUSCULAR VOLUME 88 fl (80-97); PLATELET COUNT 224 10^3/uL (150-450); RED BLOOD COUNT 4.26 10^6/uL (3.72-5.28); WHITE BLOOD COUNT 10.2 10^3/uL (4.0-10.5)
[2017-11-23 07:24] LABS: ALANINE AMINOTRANSFERASE 50 U/L (9-52); ALKALINE PHOSPHATASE 89 U/L (38-126); ANION GAP 18 (5-19); ASPARTATE AMINO TRANSFERASE 49 U/L (14-36); BILIRUBIN,DIRECT 0.2 mg/dL (0.0-0.4); BILIRUBIN,TOTAL 1.1 mg/dL (0.2-1.3); BLOOD UREA NITROGEN 33 mg/dL (7-20); CALCIUM 10.8 mg/dL (8.4-10.2); CARBON DIOXIDE 25 mmol/L (22-30); CHLORIDE 100 mmol/L (98-107); GLUCOSE 193 mg/dL (75-110); SODIUM 142.5 mmol/L (137-145)
[2017-11-23 07:53] LABS: ABSOLUTE LYMPHOCYTES# (MANUAL) 0.4 10^3/uL (0.5-4.7); ABSOLUTE MONOCYTES # (MANUAL) 0.2 10^3/uL (0.1-1.4); ABSOLUTE NEUTROPHILS# (MANUAL) 9.6 10^3/uL (1.7-8.2); ANISOCYTOSIS SLIGHT; BASOPHILS % (MANUAL) 0 % (0-2); LYMPHOCYTES % (MANUAL) 4 % (13-45); MONOCYTES % (MANUAL) 2 % (3-13); POIKILOCYTOSIS 1+; SEGMENTED NEUTROPHILS % (MAN) 94 % (42-78); TOTAL CELLS COUNTED 100
[2017-11-23 07:54] LABS: OVALOCYTES 1+; PLATELET COMMENT ADEQUATE
[2017-11-23 08:00] LABS: EOSINOPHILS % (MANUAL) 0 % (0-6)
--- NOTE | 2017-11-23 08:56 | PDOC PROGRESS REPORT ---
Subjective Progress Note for:: 11/23/17 Subjective:: Patient is currently feeling better still have some shortness of the breath but feeling better compared to yesterday patients came Patient's denied any chest pain denied any nausea no vomiting Patient seen by Dr. Whitaker And Dr. Agustin Since family on the bedside discussed with the all the test reports the pending echocardiogram Reason For Visit: SOB/ACUTE CHF Physical Exam Vital Signs: Temp Pulse Resp BP Pulse Ox 98.1 F 78 16 131/57 H 95 11/23/17 03:21 11/23/17 07:00 11/23/17 03:21 11/23/17 03:22 11/23/17 03:21 Intake & Output 11/22/17 11/23/17 11/24/17 06:59 06:59 06:59 Intake Total 204 Balance 204 Weight 77.4 kg General appearance: PRESENT: no acute distress, well-developed, well-nourished Head exam: PRESENT: atraumatic, normocephalic Eye exam: PRESENT: conjunctiva pink, EOMI, PERRLA. ABSENT: scleral icterus Ear exam: PRESENT: normal external ear exam Mouth exam: PRESENT: moist, tongue midline Neck exam: PRESENT: full ROM. ABSENT: carotid bruit, JVD, lymphadenopathy, thyromegaly Respiratory exam: PRESENT: clear to auscultation lauren Cardiovascular exam: PRESENT: RRR. ABSENT: diastolic murmur, rubs, systolic murmur Pulses: PRESENT: normal dorsalis pedis pul, +2 pedal pulses bilateral Vascular exam: PRESENT: normal capillary refill GI/Abdominal exam: PRESENT: normal bowel sounds, soft. ABSENT: distended, guarding, mass, organolmegaly, rebound, tenderness Rectal exam: PRESENT: deferred Extremities exam: ABSENT: pedal edema Musculoskeletal exam: PRESENT: ambulatory Neurological exam: PRESENT: alert, awake, oriented to person, oriented to place , oriented to time, oriented to situation, CN II-XII grossly intact. ABSENT: motor sensory deficit Psychiatric exam: PRESENT: appropriate affect, normal mood. ABSENT: homicidal ideation, suicidal ideation Skin exam: PRESENT: dry, intact, warm. ABSENT: cyanosis, rash Results Laboratory Results: 11/23/17 06:37 11/23/17 06:37 11/22/17 11/23/17 11/23/17 11:07 06:37 06:37 WBC 10.2 RBC 4.26 Hgb 12.9 Hct 37.6 MCV 88 MCH 30.2 MCHC 34.2 RDW 15.0 H Plt Count 224 Seg Neutrophils % Not Reportable Lymphocytes % Not Reportable Monocytes % Not Reportable Eosinophils % Not Reportable Basophils % Not Reportable Absolute Neutrophils Not Reportable Absolute Lymphocytes Not Reportable Absolute Monocytes Not Reportable Absolute Eosinophils Not Reportable Absolute Basophils Not Reportable Sodium 142.5 Potassium 4.0 Chloride 100 Carbon Dioxide 25 Anion Gap 18 BUN 33 H Creatinine 0.90 Est GFR ( Amer) > 60 Est GFR (Non-Af Amer) > 60 Glucose 193 H Calcium 10.8 H Total Bilirubin 1.1 AST 49 H ALT 50 Alkaline Phosphatase 89 Total Protein 8.0 Albumin 5.0 Urine Color COLORLESS Urine Appearance CLEAR Urine pH 6.0 Ur Specific [place] 1.009 Urine Protein NEGATIVE Urine Glucose (UA) NEGATIVE Urine Ketones NEGATIVE Urine Blood SMALL H Urine Nitrite NEGATIVE Ur Leukocyte Esterase NEGATIVE Urine WBC (Auto) 0 Urine RBC (Auto) 0 11/22/17 11/22/17 11/22/17 12:25 12:25 17:25 Creatine Kinase 300 H 268 H CK-MB (CK-2) 4.78 H Troponin I 0.020 NT-Pro-B Natriuret Pep 11/22/17 11/22/17 11/22/17 17:25 23:25 23:25 Creatine Kinase 229 H CK-MB (CK-2) 4.46 3.69 Troponin I 0.020 0.023 NT-Pro-B Natriuret Pep 11/23/17 06:37 Creatine Kinase CK-MB (CK-2) Troponin I NT-Pro-B Natriuret Pep 1890 H Impressions: Chest X-Ray 11/22/17 00:00 IMPRESSION: 1. Cardiomegaly with interstitial pulmonary edema. Chest/Abdomen CTA 11/22/17 09:05 IMPRESSION: No CT angio evidence of acute pulmonary emboli or thoracic aortic dissection. Thickened interlobular septa from mild interstitial edema. 5 mm and 6 mm nodules in the periphery of the right upper lobe, new compared to prior studies. Consider follow-up as per Fleischner recommendations Assessment & Plan - Diagnosis (1) Shortness of breath Is this a current diagnosis for this admission?: Yes Plan: With the multifactorial including the congestive heart failure with some COPD component Patient CT angiogram is negative for any pulmonary embolisms initial EKG and cardiac enzymes also negative Will continue some nebulizer treatments continues to IV steroidAnd IV Lasix We will consult the pulmonary and consult the cardiology for further evaluations (2) Congestive heart failure Qualifiers: Heart failure type: diastolic Heart failure chronicity: unspecified Qualified Code(s): I50.30 - Unspecified diastolic (congestive) heart failure Is this a current diagnosis for this admission?: Yes Plan: Continues IV Lasix will wait for the echo reportFollow with cardiology (3) COPD with acute exacerbation Is this a current diagnosis for this admission?: Yes Plan: 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 we will review the CT scan report with the pulmonary continues to current medications: Nebulizer (4) Hypertension Qualifiers: Hypertension type: essential hypertension Qualified Code(s): I10 - Essential (primary) hypertension Is this a current diagnosis for this admission?: Yes Plan: Currently all stable (5) Rheumatoid arthritis Qualifiers: Rheumatoid arthritis location: unspecified site Is this a current diagnosis for this admission?: Yes Plan: Patient's currently follow outpatients [facility] (6) Hypertrophic cardiomyopathy Is this a current diagnosis for this admission?: Yes Plan: Scheduled echocardiogram consult the cardiology - Time Time Spent with patient: 15-24 minutes Medications reviewed and adjusted accordingly: Yes Anticipated discharge: Other Within: Other - Inpatient Certification Medical Necessity: Need Close Monitoring Due to Risk of Patient Decompensation 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
[2017-11-23] MEDS ORDERED: (PENDING PHARMACY ID) (Bisoprolol Fumarate [Zebeta 5 Mg Tablet] 1 TAB) PO SCH (10:00)
[2017-11-23] MEDS: SPIRONOLACTONE 25 MG TABLET PO SCH (10:25)
[2017-11-23] MEDS: PAROXETINE HCL 20 MG TABLET PO SCH (10:25)
[2017-11-23] MEDS: LEVOFLOXACIN 500 MG TABLET PO SCH (10:25)
[2017-11-23] MEDS: SULFASALAZINE 500 MG TABLET.DR PO SCH ×2 (10:26→21:53)
[2017-11-23] MEDS: ENOXAPARIN SODIUM INJ 40 MG/0.4 ML DISP.SYRIN SUBCUT SCH (10:26)
[2017-11-23] MEDS ORDERED: INFLUENZA ADLT QUAD (36MOS+) 2017-18 VAC 0.5 ML SYR IM PRN (11:31)
[2017-11-23] MEDS: ATENOLOL 50 MG TABLET PO SCH (13:09)
--- NOTE | 2017-11-23 18:06 | XCELERA REPORT ---
[address] [address] Transthoracic Echocardiogram Report Name: RACHEAL ALBA Age: 66 yrs Gender: Female : 1950 Patient Status: Inpatient Patient Location: [address] [place] [address] Study Date: 11/23/2017 03:39 PM Height: 61 in Weight: 177 lb BSA: 1.8 m2 Procedure: A complete two-dimensional transthoracic echocardiogram was performed (2D, M-mode, spectral and color flow Doppler). The study was technically adequate with some images being suboptimal in quality. Reason For Study: chf Ordering Physician: CHANELL BYRNE Performed By: Hilary Boone Interpretation Summary The left ventricular ejection fraction is normal. There is mild concentric left ventricular hypertrophy. The left ventricle is grossly normal size. Doppler measurements suggest pseudonormalized left ventricular relaxation, which is associated with grade II/IV or mild to moderate diastolic dysfunction Wall motion cannot be accurately commented on, but no definite regional wall motion abnormalities noted. Borderline right ventricular enlargement. The right ventricular systolic function is normal. The right atrium is borderline dilated. Borderline left atrial enlargement. There is a trace to mild amount of mitral regurgitation There is no mitral valve stenosis. There is a trace amount of aortic regurgitation There is no aortic valve stenosis There is a trace or physiologic amount of tricuspid regurgitation Tricuspid regurgitation jet envelope not well defined to measure RV systolic pressure accurately. The aortic root is not well visualized but is probably normal size. The inferior vena cava appeared normal and decreased > 50% with respiration (RAP 5-10 mmHg) There is no pericardial effusion. MMode/2D Measurements & Calculations RVDd: 2.8 cm LVIDd: 4.4 cm FS: 37.1 % Ao root diam: 2.6 cm IVSd: 1.1 cm LVIDs: 2.8 cm EDV(Teich): 88.2 ml LVPWd: 1.0 cm ESV(Teich): 28.9 ml Ao root area: 5.2 cm2 EF(Teich): 67.2 % LA dimension: 3.7 cm Doppler Measurements & Calculations MV E max willie: MV P1/2t max willie: Ao V2 max: LV V1 max P.1 cm/sec 69.2 cm/sec 131.4 cm/sec 4.7 mmHg MV A max willie: MV P1/2t: 64.2 msec Ao max PG: LV V1 max: 111.8 cm/sec 6.9 mmHg 108.6 cm/sec MV E/A: 0.68 MVA(P1/2t): 3.4 cm2 MV dec slope: 316.0 cm/sec2 PA V2 max: TR max willie: 122.7 cm/sec 240.0 cm/sec PA max P.0 mmHgTR max P.0 mmHg Left Ventricle The left ventricle is grossly normal size. There is mild concentric left ventricular hypertrophy. The left ventricular ejection fraction is normal. Doppler measurements suggest pseudonormalized left ventricular relaxation, which is associated with grade II/IV or mild to moderate diastolic dysfunction. Wall motion cannot be accurately commented on, but no definite regional wall motion abnormalities noted. Right Ventricle Borderline right ventricular enlargement. There is normal right ventricular wall thickness. The right ventricular systolic function is normal. Atria The right atrium is borderline dilated. Borderline left atrial enlargement. Interarterial septum not well visualized and not well dopplered. Cannot comment on ASD/PFO presence. Mitral Valve There is mild mitral leaflet calcification. There is mild mitral annular calcification. There is no mitral valve stenosis. There is a trace to mild amount of mitral regurgitation. Aortic Valve The aortic valve is not well visualized secondary to technical limitations. There is no aortic valve stenosis. There is a trace amount of aortic regurgitation. Tricuspid Valve The tricuspid valve is not well visualized secondary to technical limitations. There is no tricuspid stenosis. There is a trace or physiologic amount of tricuspid regurgitation. Tricuspid regurgitation jet envelope not well defined to measure RV systolic pressure accurately. Pulmonic Valve The pulmonic valve is not well visualized. Great Vessels The aortic root is not well visualized but is probably normal size. The inferior vena cava appeared normal and decreased > 50% with respiration (RAP 5-10 mmHg). Effusions There is no pericardial effusion. : CHANELL BYRNE > Chanell Byrne
--- NOTE | 2017-11-23 18:48 | PDOC PROGRESS REPORT ---
Subjective Progress Note for:: 11/23/17 Subjective:: Patient seems to be doing better with gradual improvement. Pt is denying any chest arm or neck discomfort. Patient denying any PND, orthopnea. Patient denied any sustained palpitations, dizziness, syncope, near syncope. Patient denying any fever chills. Patient denying any other significant discomfort. Patient is maintaining sinus rhythm. Review of systems: Rest review of systems negative. Medications: Medications have been reviewed. Reason For Visit: SOB/ACUTE CHF Physical Exam Vital Signs: Temp Pulse Resp BP Pulse Ox 98.3 F 62 16 117/70 94 11/23/17 16:55 11/23/17 16:55 11/23/17 16:55 11/23/17 16:55 11/23/17 16:55 Intake & Output 11/22/17 11/23/17 11/24/17 06:59 06:59 06:59 Intake Total 204 1222 Balance 204 1222 Weight 77.4 kg Exam: GENERAL: well-nourished and in no acute distress. Alert and oriented x3 HEAD: Atraumatic, normocephalic. EYES: Pupils equal round and reactive to light, extraocular movements intact, sclera anicteric, conjunctiva are normal. ENT: TMs normal, nares patent, oropharynx clear without exudates. Moist mucous membranes. No oral ulcerations or bleeding gums noted NECK: supple without lymphadenopathy. Trachea is central. No cervical or axillary lymphadenopathy noted. Carotids are 2+, JVD WNL LUNGS: Respiration seems nonlabored, no significant accessory muscle action noted. Breath sounds clear to auscultation bilaterally and equal noted. No wheezes rales or rhonchi noted. No significant dullness noted on percussion. CHEST: Palpation of the chest wall shows no significant chest wall tenderness. No other significant abnormalities noted. 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 ABDOMEN: Soft, no significant tenderness appreciated, normoactive bowel sounds. No guarding, no rebound. No rigidity noted . No masses appreciated. EXTREMITIES: Pedal pulses are 1-2+, no calf tenderness noted. No clubbing or cyanosis.trace pedal edema noted NEUROLOGICAL: Focused neurological exam showed no significant neurologic deficit. Normal speech, no focal weakness appreciated. PSYCH: Normal mood, normal affect. Judgment and insight within normal limits. SKIN: No significant ecchymosis, rash, ulcerations or signs of pruritus noted. MUSCULOSKELETAL EXAM: No significant joint swelling noted. Results Laboratory Results: 11/23/17 06:37 11/23/17 06:37 11/23/17 11/23/17 11/23/17 06:37 06:37 06:37 WBC 10.2 RBC 4.26 Hgb 12.9 Hct 37.6 MCV 88 MCH 30.2 MCHC 34.2 RDW 15.0 H Plt Count 224 Seg Neutrophils % Not Reportable Lymphocytes % Not Reportable Monocytes % Not Reportable Eosinophils % Not Reportable Basophils % Not Reportable Absolute Neutrophils Not Reportable Absolute Lymphocytes Not Reportable Absolute Monocytes Not Reportable Absolute Eosinophils Not Reportable Absolute Basophils Not Reportable Sodium 142.5 Potassium 4.0 Chloride 100 Carbon Dioxide 25 Anion Gap 18 BUN 33 H Creatinine 0.90 Est GFR ( Amer) > 60 Est GFR (Non-Af Amer) > 60 Glucose 193 H Calcium 10.8 H Magnesium 1.7 Total Bilirubin 1.1 AST 49 H ALT 50 Alkaline Phosphatase 89 Total Protein 8.0 Albumin 5.0 11/22/17 11/22/17 11/22/17 12:25 12:25 17:25 Creatine Kinase 300 H 268 H CK-MB (CK-2) 4.78 H Troponin I 0.020 NT-Pro-B Natriuret Pep 11/22/17 11/22/17 11/22/17 17:25 23:25 23:25 Creatine Kinase 229 H CK-MB (CK-2) 4.46 3.69 Troponin I 0.020 0.023 NT-Pro-B Natriuret Pep 11/23/17 06:37 Creatine Kinase CK-MB (CK-2) Troponin I NT-Pro-B Natriuret Pep 1890 H EKG Comments: Telemetry strips shows sinus rhythm without any sustained tacky or bradycardia arrhythmias. Impressions: Chest X-Ray 11/22/17 00:00 IMPRESSION: 1. Cardiomegaly with interstitial pulmonary edema. Chest/Abdomen CTA 11/22/17 09:05 IMPRESSION: No CT angio evidence of acute pulmonary emboli or thoracic aortic dissection. Thickened interlobular septa from mild interstitial edema. 5 mm and 6 mm nodules in the periphery of the right upper lobe, new compared to prior studies. Consider follow-up as per Fleischner recommendations Assessment & Plan - Diagnosis (1) Dyspnea Qualifiers: Dyspnea type: dyspnea on exertion Qualified Code(s): R06.09 - Other forms of dyspnea Is this a current diagnosis for this admission?: Yes (2) COPD with acute exacerbation Is this a current diagnosis for this admission?: Yes (3) Congestive heart failure Qualifiers: Heart failure type: diastolic Heart failure chronicity: unspecified Qualified Code(s): I50.30 - Unspecified diastolic (congestive) heart failure Is this a current diagnosis for this admission?: Yes (4) Hypertension Qualifiers: Hypertension type: essential hypertension Qualified Code(s): I10 - Essential (primary) hypertension Is this a current diagnosis for this admission?: Yes (5) Hypertrophic cardiomyopathy Is this a current diagnosis for this admission?: Yes (6) Obesity Qualifiers: Obesity type: unspecified obesity type Body mass index: BMI 33.0-33.9 Is this a current diagnosis for this admission?: Yes (7) LBBB (left bundle branch block) Is this a current diagnosis for this admission?: Yes (8) Chest tightness Is this a current diagnosis for this admission?: Yes - Notes Notes: Dyspnea: Most likely related to combination of CHF and COPD with exacerbation. Patient currently feeling much better. This is related to both diuresis and treatment of COPD. 2D echo shows normal LVEF, mild LVH, grade 2 diastolic dysfunction. No significant valvular abnormalities were noted. Congestive heart failure: BNP is elevated. Patient has abnormal EKG with left bundle branch block pattern. At this point patient will benefit from CHF pathway. Hypertension: Blood pressure goal should be less than 135/85 in patients with CHF. Cardiomyopathy: Presumably hypertrophic cardiomyopathy based on history of surgery. Patient has been told to report any overt syncope, near syncope. Obesity: Patient will benefit from weight loss. Chest Tightness: possible CHF and diastolic dysfuction vs COPD vs angina. Enzymes and ekgs currently negative. Scheduled NST. LBBBB : possibly chronic. Sleep disorder: I believe patient has high probability of underlying sleep apnea. It may be worthwhile to consider repeating the sleep study. This will be scheduled as an outpatient. - Time Time with patient: Greater than 35 minutes - 2D echo results discussed. Patient questions answered. Patient to be scheduled for a stress test tomorrow. Medications reviewed and adjusted accordingly: Yes
[2017-11-23] MEDS: GABAPENTIN 300 MG CAPSULE PO SCH (21:51)
[2017-11-24] MEDS: IPRATROPIUM/ALBUTEROL 0.5-2.5 MG/3 ML AMPUL NEB SCH ×4 (02:11→20:26)
[2017-11-24] MEDS: LANSOPRAZOLE 30 MG TAB.RAP.DR PO SCH (06:14)
[2017-11-24] MEDS: FUROSEMIDE INJ/PF 20 MG/2 ML SDV IV SCH ×3 (06:14→21:22)
[2017-11-24] MEDS: METHYLPREDNISOLONE INJ 40 MG/1 ML SDV IV SCH ×3 (06:14→21:22)
[2017-11-24 07:05] LABS: HEMATOCRIT 36.4 % (36.0-47.0); HEMOGLOBIN 12.3 g/dL (12.0-15.5); MEAN CORPUSCULAR HEMOGLOBIN 29.9 pg (27.0-33.4); MEAN CORPUSCULAR HGB CONC 33.8 g/dL (32.0-36.0); MEAN CORPUSCULAR VOLUME 89 fl (80-97); PLATELET COUNT 218 10^3/uL (150-450); RED BLOOD COUNT 4.12 10^6/uL (3.72-5.28); RED CELL DISTRIBUTION WIDTH 15.5 % (11.5-14.0); WHITE BLOOD COUNT 15.3 10^3/uL (4.0-10.5)
[2017-11-24 07:24] LABS: ANION GAP 16 (5-19); BLOOD UREA NITROGEN 46 mg/dL (7-20); CALCIUM 9.9 mg/dL (8.4-10.2); CARBON DIOXIDE 24 mmol/L (22-30); CHLORIDE 102 mmol/L (98-107); GLUCOSE 171 mg/dL (75-110); POTASSIUM 4.4 mmol/L (3.6-5.0); SODIUM 141.6 mmol/L (137-145)
[2017-11-24 07:32] LABS: ABSOLUTE LYMPHOCYTES# (MANUAL) 0.6 10^3/uL (0.5-4.7); ABSOLUTE NEUTROPHILS# (MANUAL) 14.7 10^3/uL (1.7-8.2); BASOPHILS % (MANUAL) 0 % (0-2); EOSINOPHILS % (MANUAL) 0 % (0-6); LYMPHOCYTES % (MANUAL) 4 % (13-45); MONOCYTES % (MANUAL) 0 % (3-13); SEGMENTED NEUTROPHILS % (MAN) 96 % (42-78); TOTAL CELLS COUNTED 100
[2017-11-24 07:33] LABS: ANISOCYTOSIS SLIGHT; OVALOCYTES 1+; PLATELET COMMENT ADEQUATE; POIKILOCYTOSIS 1+; POLYCHROMASIA SLIGHT
[2017-11-24] MEDS ORDERED: CEFTRIAXONE 1 GM/D5W RTU 1 GM/50 ML RTUPB IV SCH (09:00)
--- NOTE | 2017-11-24 10:08 | PDOC PROGRESS REPORT ---
Subjective Progress Note for:: 11/24/17 Subjective:: Patient is feeling much better but still have some mild cough and mild shortness of the breath She does walk in the hallway yesterday without any problems Patient seen by Dr. Agustin and order the MRI of the heart since Patient's denied any chest pain denied any shortness of the available resting This with all the test reports and the plan Reason For Visit: SOB/ACUTE CHF Physical Exam Vital Signs: Temp Pulse Resp BP Pulse Ox 98.1 F 61 17 104/42 L 100 11/24/17 07:57 11/24/17 07:57 11/24/17 07:57 11/24/17 07:57 11/24/17 07:57 Intake & Output 11/23/17 11/24/17 11/25/17 06:59 06:59 06:59 Intake Total 204 2062 Balance 204 2062 Weight 77.4 kg 76.2 kg General appearance: PRESENT: no acute distress, well-developed, well-nourished Head exam: PRESENT: atraumatic, normocephalic Eye exam: PRESENT: conjunctiva pink, EOMI, PERRLA. ABSENT: scleral icterus Ear exam: PRESENT: normal external ear exam Mouth exam: PRESENT: moist, tongue midline Neck exam: PRESENT: full ROM. ABSENT: carotid bruit, JVD, lymphadenopathy, thyromegaly Respiratory exam: PRESENT: clear to auscultation lauren Cardiovascular exam: PRESENT: RRR. ABSENT: diastolic murmur, rubs, systolic murmur Pulses: PRESENT: normal dorsalis pedis pul, +2 pedal pulses bilateral Vascular exam: PRESENT: normal capillary refill GI/Abdominal exam: PRESENT: normal bowel sounds, soft. ABSENT: distended, guarding, mass, organolmegaly, rebound, tenderness Rectal exam: PRESENT: deferred Extremities exam: ABSENT: pedal edema Musculoskeletal exam: PRESENT: ambulatory Neurological exam: PRESENT: alert, awake, oriented to person, oriented to place , oriented to time, oriented to situation, CN II-XII grossly intact. ABSENT: motor sensory deficit Psychiatric exam: PRESENT: appropriate affect, normal mood. ABSENT: homicidal ideation, suicidal ideation Skin exam: PRESENT: dry, intact, warm. ABSENT: cyanosis, rash Results Laboratory Results: 11/24/17 06:03 11/24/17 06:03 11/24/17 11/24/17 06:03 06:03 WBC 15.3 H RBC 4.12 Hgb 12.3 Hct 36.4 MCV 89 MCH 29.9 MCHC 33.8 RDW 15.5 H Plt Count 218 Seg Neutrophils % Not Reportable Lymphocytes % Not Reportable Monocytes % Not Reportable Eosinophils % Not Reportable Basophils % Not Reportable Absolute Neutrophils Not Reportable Absolute Lymphocytes Not Reportable Absolute Monocytes Not Reportable Absolute Eosinophils Not Reportable Absolute Basophils Not Reportable Sodium 141.6 Potassium 4.4 Chloride 102 Carbon Dioxide 24 Anion Gap 16 BUN 46 H Creatinine 1.08 Est GFR ( Amer) > 60 Est GFR (Non-Af Amer) 51 L Glucose 171 H Calcium 9.9 11/22/17 11:07 Clean Catch Midstream Urine Culture - Final Mixed Urogenital Sharon 11/22/17 11/22/17 11/22/17 12:25 12:25 17:25 Creatine Kinase 300 H 268 H CK-MB (CK-2) 4.78 H Troponin I 0.020 NT-Pro-B Natriuret Pep 11/22/17 11/22/17 11/22/17 17:25 23:25 23:25 Creatine Kinase 229 H CK-MB (CK-2) 4.46 3.69 Troponin I 0.020 0.023 NT-Pro-B Natriuret Pep 11/23/17 11/24/17 06:37 06:03 Creatine Kinase CK-MB (CK-2) Troponin I NT-Pro-B Natriuret Pep 1890 H 1470 H Impressions: Chest X-Ray 11/22/17 00:00 IMPRESSION: 1. Cardiomegaly with interstitial pulmonary edema. Chest/Abdomen CTA 11/22/17 09:05 IMPRESSION: No CT angio evidence of acute pulmonary emboli or thoracic aortic dissection. Thickened interlobular septa from mild interstitial edema. 5 mm and 6 mm nodules in the periphery of the right upper lobe, new compared to prior studies. Consider follow-up as per Fleischner recommendations Assessment & Plan - Diagnosis (1) Shortness of breath Is this a current diagnosis for this admission?: Yes Plan: With the multifactorial including the congestive heart failure with some COPD component Patient CT angiogram is negative for any pulmonary embolisms initial EKG and cardiac enzymes also negative Will continue some nebulizer treatments continues to IV steroidAnd IV Lasix We will consult the pulmonary and consult the cardiology for further evaluations (2) Congestive heart failure Qualifiers: Heart failure type: diastolic Heart failure chronicity: unspecified Qualified Code(s): I50.30 - Unspecified diastolic (congestive) heart failure Is this a current diagnosis for this admission?: Yes Plan: Continues IV Lasix will wait for the echo reportFollow with cardiology (3) COPD with acute exacerbation Is this a current diagnosis for this admission?: Yes Plan: 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 we will review the CT scan report with the pulmonary continues to current medications: Nebulizer We will add diabetes if he is to go what is any kind of bacterial infections with elevated white count mostly related to possible steroid (4) Hypertension Qualifiers: Hypertension type: essential hypertension Qualified Code(s): I10 - Essential (primary) hypertension Is this a current diagnosis for this admission?: Yes Plan: Currently all stable (5) Rheumatoid arthritis Qualifiers: Rheumatoid arthritis location: unspecified site Is this a current diagnosis for this admission?: Yes Plan: 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
--- NOTE | 2017-11-24 10:32 | RADIOLOGY REPORT (SQ) ---
EXAM DESCRIPTION: CHEST PA/LAT COMPLETED DATE/TIME: 11/24/2017 10:23 am REASON FOR STUDY: sob COMPARISON: CT chest 11/22/2017 Two-view chest 11/22/2017, 07/12/2017 EXAM PARAMETERS: NUMBER OF VIEWS: two views TECHNIQUE: Digital Frontal and Lateral radiographic views of the chest acquired. RADIATION DOSE: NA LIMITATIONS: none FINDINGS: LUNGS AND PLEURA: Reticulonodular infiltrate and small pulmonary nodules seen on CT chest 11/22/2017 are difficult to appreciate by plain film. There is stable bronchiectasis and scarring in the lingula and right middle lobe compared to previous studies. No fluffy alveolar infiltrates worrisome for edema or pneumonia. No pleural effusion. No pneumothor ax. MEDIASTINUM AND HILAR STRUCTURES: No masses or contour abnormalities. HEART AND VASCULAR STRUCTURES: Borderline cardiomegaly BONES: No acute findings. HARDWARE: Old sternotomy for CABG OTHER: No other significant finding. IMPRESSION: No acute changes. Chronic bronchiectasis and scarring in the right middle lobe and lingula Reticulonodular infiltrates seen by CT chest 11/22/2017 is difficult to appreciate today by plain film TECHNICAL DOCUMENTATION: JOB ID: [id number] [employer]- All Rights Reserved
[2017-11-24] MEDS: CEFTRIAXONE SODIUM 1,000 MG in NORMAL SALINE 100 ML IV SCH (10:53)
[2017-11-24] MEDS: SULFASALAZINE 500 MG TABLET.DR PO SCH ×2 (10:54→21:25)
[2017-11-24] MEDS: LEVOFLOXACIN 500 MG TABLET PO SCH (10:54)
[2017-11-24] MEDS: SPIRONOLACTONE 25 MG TABLET PO SCH (10:54)
[2017-11-24] MEDS: ATENOLOL 50 MG TABLET PO SCH (10:55)
[2017-11-24] MEDS: PAROXETINE HCL 20 MG TABLET PO SCH (10:55)
[2017-11-24] MEDS: ENOXAPARIN SODIUM INJ 40 MG/0.4 ML DISP.SYRIN SUBCUT SCH (10:56)
--- NOTE | 2017-11-24 13:28 | DRAGON STRESS TEST REPORT ---
INTRAVENOUS LEXISCAN CARDIOLITE STRESS TEST USING SINGLE PHOTON EMMISION COMPUTERIZED TOMOGRAPHIC. DATE OF PROCEDURE: November 24, 2017, INDICATION : Chest tightness and shortness of breath CARDIAC RISK FACTORS: None listed RESTING EKG: Sinus rhythm with left bundle branch block pattern. STRESS EKG: No significant changes noted with LexiScan bolus REASON FOR TERMINATION: Protocol. PROCEDURE REPORT: Baseline heart rate 73 beats per minute with blood pressure of 103/54. Patient had no significant complaints. Heart rate at 2 minutes post bolus 82 with a blood pressure of 97/42. 3 minutes post bolus heart rate 81 with blood pressure of 102/50. No significant EKG changes were noted. Patient had no significant complaints during the procedure or postprocedure. Patient injected with Aminophyllin 75 mg at 3 minutes or later after Lexiscan bolus. CONCLUSIONS: Normal EKG and hemodynamic response to IV LexiScan. NUCLEAR DATA: At rest the patient was given 11.74 millicuries of technetium 99 sestamibi injected intravenously. As per protocol rest gated SPECT images were obtained. On day of stress test, the patient was given intravenous LexiScan at a dose of 0.4 mg in 5 mL intravenously, followed by flush with normal saline. Subsequently the stress dose of 35.3 millicuries of technetium 99 sestamibi was injected intravenously. As per protocol stress gated images were obtained. NUCLEAR INTERPRETATION: Both raw and processed data were used for interpretation. Visual, qualitative, computer-generated quantitative data was used. There was good myocardial uptake of technetium compound. Motion artifact and soft tissue attenuations were noted. Increased visceral uptake was noted. Increased breast attenuation artifact noted and also some increased motion artifact noted. Mild decreased uptake was noted in the mid anterior wall and is felt mostly related to breast attenuation artifact differences rather than to perfusion defect. No definitive areas of transient perfusion defect noted, No definitive areas of fixed perfusion defect or scars noted. EKG gated imaging showed LV EF at 47 %, rest and stress gated EF similar visually. T. I D. ratio was 1.31. Lung heart ratio noted to be within normal limits 0.37. No significant extracardiac and abnormal radiotracer activities were noted. RV free wall uptake was noted to be WNL. IMPRESSION: Also refer to comments under nuclear interpretation. Also test results needs to be interpreted in the context of pretest probability. 1. No definitive areas of transient perfusion defect noted. 2. There is no definitive scintigraphic evidence of myocardial infarction/scar. 3. EKG gated imaging shows left ventricular ejection fraction of approx. 47 %. 4. Borderline transient ischemic dilatation noted. Most recent literature reveals suggest no significant increased cardiovascular event rate in the absence of significant perfusion defects. 5. Clinical correlation requested as occasionally single vessel disease or balanced ischemia could be missed. In approximately 10% of the cases Lexiscan may not cause adequate vasodilatory stress. RECOMMENDATIONS: Aggressive risk factor modification and medical management. Further evaluation may be needed if continued symptoms or other high risk indicators are noted on clinical evaluation. Close cardiology follow-up is also recommended. Clinical correlation with echocardiogram derived ejection fraction. Inability to exercise by itself can lead to increased cardiovascular event risks. Consider cardiology consultation and or follow-up if clinically indicated. I am available for cardiology evaluation and consultation if requested by the isotope technician, unless patient already has a cable installer. [place]
[2017-11-24] MEDS ORDERED: REGADENOSON INJ 0.4 MG/5 ML DISP.SYRIN IV ONE (14:01)
[2017-11-24] MEDS ORDERED: AMINOPHYLLINE INJ/PF 250 MG/10 ML SDV IV ONE (14:01)
--- NOTE | 2017-11-24 14:02 | PDOC PROGRESS REPORT ---
Subjective Progress Note for:: 11/24/17 Subjective:: Feeling much better thank you Reason For Visit: SOB/ACUTE CHF Physical Exam Vital Signs: Temp Pulse Resp BP Pulse Ox 98.3 F 61 16 113/58 L 94 11/24/17 10:53 11/24/17 13:20 11/24/17 13:20 11/24/17 10:53 11/24/17 13:20 Intake & Output 11/23/17 11/24/17 11/25/17 06:59 06:59 06:59 Intake Total 2062 Balance 2062 Weight 77.4 kg 76.2 kg General appearance: PRESENT: no acute distress, cooperative, obese, well- developed Head exam: PRESENT: atraumatic, normocephalic Eye exam: PRESENT: conjunctiva pale, EOMI. ABSENT: nystagmus, periorbital swelling, scleral icterus Mouth exam: PRESENT: moist, neck supple, tongue midline Neck exam: ABSENT: carotid bruit, JVD, lymphadenopathy, thyromegaly, tracheal deviation, tracheostomy Respiratory exam: PRESENT: clear to auscultation lauren, symmetrical, unlabored Cardiovascular exam: PRESENT: +S1, +S2 Pulses: PRESENT: normal radial pulses GI/Abdominal exam: PRESENT: diminished bowel sounds, soft Extremities exam: PRESENT: full ROM. ABSENT: calf tenderness, clubbing Musculoskeletal exam: PRESENT: ambulatory, full ROM. ABSENT: deformity, dislocation Neurological exam: PRESENT: alert, awake Psychiatric exam: PRESENT: normal mood Skin exam: PRESENT: dry, warm Results Laboratory Results: 11/24/17 06:03 11/24/17 06:03 11/24/17 11/24/17 06:03 06:03 WBC 15.3 H RBC 4.12 Hgb 12.3 Hct 36.4 MCV 89 MCH 29.9 MCHC 33.8 RDW 15.5 H Plt Count 218 Seg Neutrophils % Not Reportable Lymphocytes % Not Reportable Monocytes % Not Reportable Eosinophils % Not Reportable Basophils % Not Reportable Absolute Neutrophils Not Reportable Absolute Lymphocytes Not Reportable Absolute Monocytes Not Reportable Absolute Eosinophils Not Reportable Absolute Basophils Not Reportable Sodium 141.6 Potassium 4.4 Chloride 102 Carbon Dioxide 24 Anion Gap 16 BUN 46 H Creatinine 1.08 Est GFR ( Amer) > 60 Est GFR (Non-Af Amer) 51 L Glucose 171 H Calcium 9.9 11/22/17 11:07 Clean Catch Midstream Urine Culture - Final Mixed Urogenital Sharon 11/22/17 11/22/17 11/22/17 12:25 12:25 17:25 Creatine Kinase 300 H 268 H CK-MB (CK-2) 4.78 H Troponin I 0.020 NT-Pro-B Natriuret Pep 11/22/17 11/22/17 11/22/17 17:25 23:25 23:25 Creatine Kinase 229 H CK-MB (CK-2) 4.46 3.69 Troponin I 0.020 0.023 NT-Pro-B Natriuret Pep 11/23/17 11/24/17 06:37 06:03 Creatine Kinase CK-MB (CK-2) Troponin I NT-Pro-B Natriuret Pep 1890 H 1470 H Impressions: Chest/Abdomen CTA 11/22/17 09:05 IMPRESSION: No CT angio evidence of acute pulmonary emboli or thoracic aortic dissection. Thickened interlobular septa from mild interstitial edema. 5 mm and 6 mm nodules in the periphery of the right upper lobe, new compared to prior studies. Consider follow-up as per Fleischner recommendations Chest X-Ray 11/24/17 00:00 IMPRESSION: No acute changes. Chronic bronchiectasis and scarring in the right middle lobe and lingula Reticulonodular infiltrates seen by CT chest 11/22/2017 is difficult to appreciate today by plain film Assessment & Plan - Diagnosis (1) Snoring Is this a current diagnosis for this admission?: Yes Plan: Nocturnal polysomnogram needed (2) Obesity Qualifiers: Obesity type: unspecified obesity type Body mass index: BMI 33.0-33.9 Is this a current diagnosis for this admission?: Yes (3) Hypertrophic cardiomyopathy Is this a current diagnosis for this admission?: Yes Plan: Dr. Jcarlos Carmona decision analyst [facility] (4) History of tobacco use Is this a current diagnosis for this admission?: Yes
--- NOTE | 2017-11-24 14:06 | Pulmonary Function Test ---
Pulmonary Function Test Date of Procedure:: 11/23/17 INDICATION:: Dyspnea Referring Provider: Dr. 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 Decreased FVC and further restrictive ventilatory defect. However, restrictive defects cannot be diagnosed on the basis of spirometry alone. If clinically indicated complete pulmonary function test
--- NOTE | 2017-11-24 18:40 | Progress Note ---
Provider Note Provider Note: Patient was seen multiple times. Nuclear stress test was completed. It showed no definitive areas of transient or fixed perfusion defect. Patient's previous op report from [facility] at 2009 showed myomectomy for hypertrophic cardiomyopathy. Patient has left bundle. Discussed that she is at increased risk of progression to complete heart block and also ventricular arrhythmias. Discussed that it may be worthwhile for her to have a follow-up appointment at [facility] so that a cardiac MRI could be performed and any scar tissue in the interventricular septal myocardium can be assessed. Discussed that patient should report any syncope, near syncope. Periodic cardiac event monitoring would be needed. It may also be worthwhile to consider EP study to evaluate the conduction system on a prophylactic basis. This was discussed with patient's family members. I believe these all can be arranged as an outpatient. I did recommend that patient have a sleep study and for that reason she can follow-up with me.
[2017-11-24] MEDS: GABAPENTIN 300 MG CAPSULE PO SCH (21:22)
[2017-11-25] MEDS: IPRATROPIUM/ALBUTEROL 0.5-2.5 MG/3 ML AMPUL NEB SCH ×3 (02:18→14:40)
[2017-11-25] MEDS: FUROSEMIDE INJ/PF 20 MG/2 ML SDV IV SCH ×3 (05:54→22:08)
[2017-11-25] MEDS: METHYLPREDNISOLONE INJ 40 MG/1 ML SDV IV SCH ×3 (05:54→22:09)
[2017-11-25] MEDS: LANSOPRAZOLE 30 MG TAB.RAP.DR PO SCH (05:55)
[2017-11-25 07:06] LABS: HEMATOCRIT 37.6 % (36.0-47.0); HEMOGLOBIN 12.5 g/dL (12.0-15.5); MEAN CORPUSCULAR HEMOGLOBIN 29.7 pg (27.0-33.4); MEAN CORPUSCULAR HGB CONC 33.3 g/dL (32.0-36.0); MEAN CORPUSCULAR VOLUME 89 fl (80-97); PLATELET COUNT 221 10^3/uL (150-450); RED BLOOD COUNT 4.22 10^6/uL (3.72-5.28); RED CELL DISTRIBUTION WIDTH 15.6 % (11.5-14.0); WHITE BLOOD COUNT 10.9 10^3/uL (4.0-10.5)
[2017-11-25 07:37] LABS: ANION GAP 14 (5-19); BLOOD UREA NITROGEN 35 mg/dL (7-20); CARBON DIOXIDE 26 mmol/L (22-30); CHLORIDE 104 mmol/L (98-107); GLUCOSE 192 mg/dL (75-110); POTASSIUM 4.6 mmol/L (3.6-5.0); SODIUM 144.4 mmol/L (137-145)
[2017-11-25 07:47] LABS: ABSOLUTE LYMPHOCYTES# (MANUAL) 0.4 10^3/uL (0.5-4.7); ABSOLUTE MONOCYTES # (MANUAL) 0.5 10^3/uL (0.1-1.4); ABSOLUTE NEUTROPHILS# (MANUAL) 9.9 10^3/uL (1.7-8.2); BAND NEUTROPHILS % (MANUAL) 2 % (3-5); BASOPHILS % (MANUAL) 0 % (0-2); EOSINOPHILS % (MANUAL) 0 % (0-6); LYMPHOCYTES % (MANUAL) 4 % (13-45); MONOCYTES % (MANUAL) 5 % (3-13); SEGMENTED NEUTROPHILS % (MAN) 89 % (42-78); TOTAL CELLS COUNTED 100
[2017-11-25 07:50] LABS: ANISOCYTOSIS SLIGHT; HYPOCHROMASIA SLIGHT; PLATELET COMMENT ADEQUATE
[2017-11-25] MEDS: ENOXAPARIN SODIUM INJ 40 MG/0.4 ML DISP.SYRIN SUBCUT SCH (10:00)
[2017-11-25] MEDS: LEVOFLOXACIN 500 MG TABLET PO SCH (10:00)
[2017-11-25] MEDS: SPIRONOLACTONE 25 MG TABLET PO SCH (10:00)
[2017-11-25] MEDS: PAROXETINE HCL 20 MG TABLET PO SCH (10:01)
[2017-11-25] MEDS: SULFASALAZINE 500 MG TABLET.DR PO SCH ×2 (10:01→22:09)
[2017-11-25] MEDS: ATENOLOL 50 MG TABLET PO SCH (10:01)
[2017-11-25] MEDS: CEFTRIAXONE SODIUM 1,000 MG in NORMAL SALINE 100 ML IV SCH (10:06)
--- NOTE | 2017-11-25 14:45 | PDOC PROGRESS REPORT ---
Subjective Progress Note for:: 11/25/17 Subjective:: Nuclear stress test results and 2D echocardiogram results reviewed. [facility]. Patient seems to be doing better with gradual improvement. Pt is denying any chest arm or neck discomfort. Patient denying any PND, orthopnea. Patient denied any sustained palpitations, dizziness, syncope, near syncope. Patient denying any fever chills. Patient denying any other significant discomfort. Patient is maintaining sinus rhythm. Review of systems: Rest review of systems negative. Medications: Medications have been reviewed. Reason For Visit: SOB/ACUTE CHF Physical Exam Vital Signs: Temp Pulse Resp BP Pulse Ox 98.9 F 58 L 16 127/51 H 99 11/25/17 12:09 11/25/17 12:09 11/25/17 12:09 11/25/17 12:09 11/25/17 12:09 Intake & Output 11/24/17 11/25/17 11/26/17 06:59 06:59 06:59 Intake Total 2062 1878 Balance 2062 1878 Weight 76.2 kg 77 kg Exam: GENERAL: well-nourished and in no acute distress. Alert and oriented x3 HEAD: Atraumatic, normocephalic. EYES: Pupils equal round and reactive to light, extraocular movements intact, sclera anicteric, conjunctiva are normal. ENT: TMs normal, nares patent, oropharynx clear without exudates. Moist mucous membranes. No oral ulcerations or bleeding gums noted NECK: supple without lymphadenopathy. Trachea is central. No cervical or axillary lymphadenopathy noted. Carotids are 2+, JVD WNL LUNGS: Respiration seems nonlabored, no significant accessory muscle action noted. Breath sounds clear to auscultation bilaterally and equal noted. No wheezes rales or rhonchi noted. No significant dullness noted on percussion. CHEST: Palpation of the chest wall shows no significant chest wall tenderness. No other significant abnormalities noted. 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 ABDOMEN: Soft, no significant tenderness appreciated, normoactive bowel sounds. No guarding, no rebound. No rigidity noted . No masses appreciated. EXTREMITIES: Pedal pulses are 1-2+, no calf tenderness noted. No clubbing or cyanosis.trace to 1+ pedal edema noted NEUROLOGICAL: Focused neurological exam showed no significant neurologic deficit. Normal speech, no focal weakness appreciated. PSYCH: Normal mood, normal affect. Judgment and insight within normal limits. SKIN: No significant ecchymosis, rash, ulcerations or signs of pruritus noted. MUSCULOSKELETAL EXAM: No significant joint swelling noted. Results Laboratory Results: 11/25/17 06:04 11/25/17 06:04 11/25/17 11/25/17 06:04 06:04 WBC 10.9 H RBC 4.22 Hgb 12.5 Hct 37.6 MCV 89 MCH 29.7 MCHC 33.3 RDW 15.6 H Plt Count 221 Seg Neutrophils % Not Reportable Lymphocytes % Not Reportable Monocytes % Not Reportable Eosinophils % Not Reportable Basophils % Not Reportable Absolute Neutrophils Not Reportable Absolute Lymphocytes Not Reportable Absolute Monocytes Not Reportable Absolute Eosinophils Not Reportable Absolute Basophils Not Reportable Sodium 144.4 Potassium 4.6 Chloride 104 Carbon Dioxide 26 Anion Gap 14 BUN 35 H Creatinine 1.01 Est GFR ( Amer) > 60 Est GFR (Non-Af Amer) 55 L Glucose 192 H Calcium 10.0 11/22/17 11:07 Clean Catch Midstream Urine Culture - Final Mixed Urogenital Sharon 11/22/17 11/22/17 11/22/17 12:25 12:25 17:25 Creatine Kinase 300 H 268 H CK-MB (CK-2) 4.78 H Troponin I 0.020 NT-Pro-B Natriuret Pep 11/22/17 11/22/17 11/22/17 17:25 23:25 23:25 Creatine Kinase 229 H CK-MB (CK-2) 4.46 3.69 Troponin I 0.020 0.023 NT-Pro-B Natriuret Pep 11/23/17 11/24/17 11/25/17 06:37 06:03 06:04 Creatine Kinase CK-MB (CK-2) Troponin I NT-Pro-B Natriuret Pep 1890 H 1470 H 1600 H EKG Comments: Telemetry strips shows sinus rhythm with left bundle branch block pattern. Impressions: Chest/Abdomen CTA 11/22/17 09:05 IMPRESSION: No CT angio evidence of acute pulmonary emboli or thoracic aortic dissection. Thickened interlobular septa from mild interstitial edema. 5 mm and 6 mm nodules in the periphery of the right upper lobe, new compared to prior studies. Consider follow-up as per Fleischner recommendations Chest X-Ray 11/24/17 00:00 IMPRESSION: No acute changes. Chronic bronchiectasis and scarring in the right middle lobe and lingula Reticulonodular infiltrates seen by CT chest 11/22/2017 is difficult to appreciate today by plain film Assessment & Plan - Diagnosis (1) Dyspnea Qualifiers: Dyspnea type: dyspnea on exertion Qualified Code(s): R06.09 - Other forms of dyspnea Is this a current diagnosis for this admission?: Yes (2) COPD with acute exacerbation Is this a current diagnosis for this admission?: Yes (3) Congestive heart failure Qualifiers: Heart failure type: diastolic Heart failure chronicity: unspecified Qualified Code(s): I50.30 - Unspecified diastolic (congestive) heart failure Is this a current diagnosis for this admission?: Yes (4) Hypertension Qualifiers: Hypertension type: essential hypertension Qualified Code(s): I10 - Essential (primary) hypertension Is this a current diagnosis for this admission?: Yes (5) Hypertrophic cardiomyopathy Is this a current diagnosis for this admission?: Yes (6) Obesity Qualifiers: Obesity type: unspecified obesity type Body mass index: BMI 33.0-33.9 Is this a current diagnosis for this admission?: Yes (7) LBBB (left bundle branch block) Is this a current diagnosis for this admission?: Yes (8) Chest tightness Is this a current diagnosis for this admission?: Yes - Notes Notes: Dyspnea: Most likely related to combination of CHF and COPD with exacerbation. Patient currently feeling much better. This is related to both diuresis and treatment of COPD. 2D echo shows normal LVEF, mild LVH, grade 2 diastolic dysfunction. No significant valvular abnormalities were noted. Nuclear stress test negative for any definitive evidence of pharmacologic stress-induced ischemia. Congestive heart failure: BNP is elevated. Patient has abnormal EKG with left bundle branch block pattern. At this point patient will benefit from CHF pathway. Hypertension: Blood pressure goal should be less than 135/85 in patients with CHF. Cardiomyopathy: Presumably hypertrophic cardiomyopathy based on history of surgery. Patient has been told to report any overt syncope, near syncope. Obesity: Patient will benefit from weight loss. Chest Tightness: possible CHF and diastolic dysfuction vs COPD vs angina. Enzymes and ekgs currently negative. Nuclear stress test results reviewed. LBBBB : possibly chronic. Sleep disorder: I believe patient has high probability of underlying sleep apnea. It may be worthwhile to consider repeating the sleep study. This will be scheduled as an outpatient. - Time Time with patient: Greater than 35 minutes - CODE STATUS was discussed, patient remains full code. Surrogate decision-maker unchanged. Multiple medical problems were addressed. More than 50% of the time spent coordinating care, discussing management plans with involved caregivers. Management plans discussed with involved personnels. Medical decision making was of moderate to high complexity, patient's has multiple comorbidities. Medications reviewed and adjusted accordingly: Yes
--- NOTE | 2017-11-25 14:48 | PDOC PROGRESS REPORT ---
Subjective Progress Note for:: 11/24/17 Subjective:: Nuclear stress test results and 2D echocardiogram results reviewed. Report from [facility] reviewed. Nuclear stress test results finding discussed with patient, her daughter and her granddaughter. Patient seems to be doing better with gradual improvement. Pt is denying any chest arm or neck discomfort. Patient denying any PND, orthopnea. Patient denied any sustained palpitations, dizziness, syncope, near syncope. Patient denying any fever chills. Patient denying any other significant discomfort. Patient is maintaining sinus rhythm. Review of systems: Rest review of systems negative. Medications: Medications have been reviewed. Reason For Visit: SOB/ACUTE CHF Physical Exam Vital Signs: Temp Pulse Resp BP Pulse Ox 98.5 F 65 16 110/44 L 95 11/24/17 15:39 11/24/17 15:39 11/24/17 15:39 11/24/17 15:39 11/24/17 15:39 Intake & Output 11/23/17 11/24/17 11/25/17 06:59 06:59 06:59 Intake Total 204 2063 958 Balance 204 2063 958 Weight 77.4 kg 76.2 kg Exam: GENERAL: well-nourished and in no acute distress. Alert and oriented x3 HEAD: Atraumatic, normocephalic. EYES: Pupils equal round and reactive to light, extraocular movements intact, sclera anicteric, conjunctiva are normal. ENT: TMs normal, nares patent, oropharynx clear without exudates. Moist mucous membranes. No oral ulcerations or bleeding gums noted NECK: supple without lymphadenopathy. Trachea is central. No cervical or axillary lymphadenopathy noted. Carotids are 2+, JVD WNL LUNGS: Respiration seems nonlabored, no significant accessory muscle action noted. Breath sounds clear to auscultation bilaterally and equal noted. No wheezes rales or rhonchi noted. No significant dullness noted on percussion. CHEST: Palpation of the chest wall shows no significant chest wall tenderness. No other significant abnormalities noted. 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 ABDOMEN: Soft, no significant tenderness appreciated, normoactive bowel sounds. No guarding, no rebound. No rigidity noted . No masses appreciated. EXTREMITIES: Pedal pulses are 1-2+, no calf tenderness noted. No clubbing or cyanosis.trace to 1+ pedal edema noted NEUROLOGICAL: Focused neurological exam showed no significant neurologic deficit. Normal speech, no focal weakness appreciated. PSYCH: Normal mood, normal affect. Judgment and insight within normal limits. SKIN: No significant ecchymosis, rash, ulcerations or signs of pruritus noted. MUSCULOSKELETAL EXAM: No significant joint swelling noted. Results Laboratory Results: 11/24/17 06:03 11/24/17 06:03 11/24/17 11/24/17 06:03 06:03 WBC 15.3 H RBC 4.12 Hgb 12.3 Hct 36.4 MCV 89 MCH 29.9 MCHC 33.8 RDW 15.5 H Plt Count 218 Seg Neutrophils % Not Reportable Lymphocytes % Not Reportable Monocytes % Not Reportable Eosinophils % Not Reportable Basophils % Not Reportable Absolute Neutrophils Not Reportable Absolute Lymphocytes Not Reportable Absolute Monocytes Not Reportable Absolute Eosinophils Not Reportable Absolute Basophils Not Reportable Sodium 141.6 Potassium 4.4 Chloride 102 Carbon Dioxide 24 Anion Gap 16 BUN 46 H Creatinine 1.08 Est GFR ( Amer) > 60 Est GFR (Non-Af Amer) 51 L Glucose 171 H Calcium 9.9 11/22/17 11:07 Clean Catch Midstream Urine Culture - Final Mixed Urogenital Sharon 11/22/17 11/22/17 11/22/17 12:25 12:25 17:25 Creatine Kinase 300 H 268 H CK-MB (CK-2) 4.78 H Troponin I 0.020 NT-Pro-B Natriuret Pep 11/22/17 11/22/17 11/22/17 17:25 23:25 23:25 Creatine Kinase 229 H CK-MB (CK-2) 4.46 3.69 Troponin I 0.020 0.023 NT-Pro-B Natriuret Pep 11/23/17 11/24/17 06:37 06:03 Creatine Kinase CK-MB (CK-2) Troponin I NT-Pro-B Natriuret Pep 1890 H 1470 H Impressions: Chest/Abdomen CTA 11/22/17 09:05 IMPRESSION: No CT angio evidence of acute pulmonary emboli or thoracic aortic dissection. Thickened interlobular septa from mild interstitial edema. 5 mm and 6 mm nodules in the periphery of the right upper lobe, new compared to prior studies. Consider follow-up as per Fleischner recommendations Chest X-Ray 11/24/17 00:00 IMPRESSION: No acute changes. Chronic bronchiectasis and scarring in the right middle lobe and lingula Reticulonodular infiltrates seen by CT chest 11/22/2017 is difficult to appreciate today by plain film Assessment & Plan - Diagnosis (1) Dyspnea Qualifiers: Dyspnea type: dyspnea on exertion Qualified Code(s): R06.09 - Other forms of dyspnea Is this a current diagnosis for this admission?: Yes (2) COPD with acute exacerbation Is this a current diagnosis for this admission?: Yes (3) Congestive heart failure Qualifiers: Heart failure type: diastolic Heart failure chronicity: unspecified Qualified Code(s): I50.30 - Unspecified diastolic (congestive) heart failure Is this a current diagnosis for this admission?: Yes (4) Hypertension Qualifiers: Hypertension type: essential hypertension Qualified Code(s): I10 - Essential (primary) hypertension Is this a current diagnosis for this admission?: Yes (5) Hypertrophic cardiomyopathy Is this a current diagnosis for this admission?: Yes (6) Obesity Qualifiers: Obesity type: unspecified obesity type Body mass index: BMI 33.0-33.9 Is this a current diagnosis for this admission?: Yes (7) LBBB (left bundle branch block) Is this a current diagnosis for this admission?: Yes (8) Chest tightness Is this a current diagnosis for this admission?: Yes - Notes Notes: Dyspnea: Most likely related to combination of CHF and COPD with exacerbation. Patient currently feeling much better. This is related to both diuresis and treatment of COPD. 2D echo shows normal LVEF, mild LVH, grade 2 diastolic dysfunction. No significant valvular abnormalities were noted. Congestive heart failure: BNP is elevated. Patient has abnormal EKG with left bundle branch block pattern. At this point patient will benefit from CHF pathway. Hypertension: Blood pressure goal should be less than 135/85 in patients with CHF. Cardiomyopathy: hypertrophic cardiomyopathy based on history of surgery. Patient was noted to have myomectomy. This was in 2009. Patient has been told to report any overt syncope, near syncope. Obesity: Patient will benefit from weight loss. Chest Tightness: Resolved. Nuclear stress test was negative for any significant ischemia. Patient does have significant COPD and interstitial lung disease. LBBBB : Chronic. Discussed that she may be at increased risk of progression to heart block and that a follow-up appointment with [facility] signwriter may be required. Patient will benefit from a event monitoring on the yearly or 6 monthly basis. Sleep disorder: I believe patient has high probability of underlying sleep apnea. It may be worthwhile to consider repeating the sleep study. This will be scheduled as an outpatient. - Time Time with patient: 15-25 minutes - CODE STATUS was discussed, patient remains full code. Surrogate decision-maker unchanged. Multiple medical problems were addressed. More than 50% of the time spent coordinating care, discussing management plans with involved caregivers. Management plans discussed with involved personnels. Medical decision making was of moderate to high complexity , patient's has multiple comorbidities. Medications reviewed and adjusted accordingly: Yes
[2017-11-25] MEDS ORDERED: IPRATROPIUM/ALBUTEROL 0.5-2.5 MG/3 ML AMPUL NEB PRN (16:34)
--- NOTE | 2017-11-25 17:23 | EKG REPORT ---
SEVERITY:- ABNORMAL ECG - SINUS RHYTHM ATRIAL PREMATURE COMPLEX LEFT BUNDLE BRANCH BLOCK : Confirmed by: Chris Mohr MD 25-Nov-2017 17:21:46
--- NOTE | 2017-11-25 20:24 | PDOC PROGRESS REPORT ---
Subjective Progress Note for:: 11/25/17 Subjective:: Patient was seen by the bedside, she complained of chest pain, a 12-lead EKG was done, it was sinus rhythm with left bundle branch block there is no new change on the EKG Reason For Visit: SOB/ACUTE CHF Physical Exam Vital Signs: Temp Pulse Resp BP Pulse Ox 97.2 F 60 16 120/54 L 94 11/25/17 16:33 11/25/17 16:33 11/25/17 16:33 11/25/17 16:33 11/25/17 16:33 Intake & Output 11/24/17 11/25/17 11/26/17 06:59 06:59 06:59 Intake Total 20629 1558 Balance 2062 1878 1558 Weight 76.2 kg 77 kg General appearance: PRESENT: no acute distress Head exam: PRESENT: atraumatic, normocephalic Neck exam: PRESENT: full ROM Respiratory exam: PRESENT: clear to auscultation lauren Cardiovascular exam: PRESENT: RRR, +S1, +S2 Pulses: PRESENT: normal dorsalis pedis pul, +2 pedal pulses bilateral Vascular exam: PRESENT: normal capillary refill GI/Abdominal exam: PRESENT: normal bowel sounds, soft Rectal exam: PRESENT: deferred Neurological exam: PRESENT: alert, awake, oriented to person, oriented to place , oriented to time, oriented to situation, CN II-XII grossly intact Psychiatric exam: PRESENT: appropriate affect, normal mood Skin exam: PRESENT: dry, intact, warm. ABSENT: cyanosis, rash Results Laboratory Results: 11/25/17 06:04 11/25/17 06:04 11/25/17 11/25/17 06:04 06:04 WBC 10.9 H RBC 4.22 Hgb 12.5 Hct 37.6 MCV 89 MCH 29.7 MCHC 33.3 RDW 15.6 H Plt Count 221 Seg Neutrophils % Not Reportable Lymphocytes % Not Reportable Monocytes % Not Reportable Eosinophils % Not Reportable Basophils % Not Reportable Absolute Neutrophils Not Reportable Absolute Lymphocytes Not Reportable Absolute Monocytes Not Reportable Absolute Eosinophils Not Reportable Absolute Basophils Not Reportable Sodium 144.4 Potassium 4.6 Chloride 104 Carbon Dioxide 26 Anion Gap 14 BUN 35 H Creatinine 1.01 Est GFR ( Amer) > 60 Est GFR (Non-Af Amer) 55 L Glucose 192 H Calcium 10.0 11/22/17 11/22/17 11/22/17 12:25 12:25 17:25 Creatine Kinase 300 H 268 H CK-MB (CK-2) 4.78 H Troponin I 0.020 NT-Pro-B Natriuret Pep 11/22/17 11/22/17 11/22/17 17:25 23:25 23:25 Creatine Kinase 229 H CK-MB (CK-2) 4.46 3.69 Troponin I 0.020 0.023 NT-Pro-B Natriuret Pep 11/23/17 11/24/17 11/25/17 06:37 06:03 06:04 Creatine Kinase CK-MB (CK-2) Troponin I NT-Pro-B Natriuret Pep 1890 H 1470 H 1600 H Impressions: Chest/Abdomen CTA 11/22/17 09:05 IMPRESSION: No CT angio evidence of acute pulmonary emboli or thoracic aortic dissection. Thickened interlobular septa from mild interstitial edema. 5 mm and 6 mm nodules in the periphery of the right upper lobe, new compared to prior studies. Consider follow-up as per Fleischner recommendations Chest X-Ray 11/24/17 00:00 IMPRESSION: No acute changes. Chronic bronchiectasis and scarring in the right middle lobe and lingula Reticulonodular infiltrates seen by CT chest 11/22/2017 is difficult to appreciate today by plain film Assessment & Plan - Diagnosis (1) Heart failure Qualifiers: Heart failure type: unspecified Heart failure chronicity: acute on chronic Qualified Code(s): I50.9 - Heart failure, unspecified Is this a current diagnosis for this admission?: Yes (2) Dyspnea Qualifiers: Dyspnea type: dyspnea on exertion Qualified Code(s): R06.09 - Other forms of dyspnea Is this a current diagnosis for this admission?: Yes (3) Snoring Is this a current diagnosis for this admission?: Yes (4) Obesity Qualifiers: Obesity type: unspecified obesity type Body mass index: BMI 33.0-33.9 Is this a current diagnosis for this admission?: Yes (5) Hypertrophic cardiomyopathy Is this a current diagnosis for this admission?: Yes (6) History of tobacco use Is this a current diagnosis for this admission?: Yes (7) Shortness of breath Is this a current diagnosis for this admission?: Yes (8) Congestive heart failure Qualifiers: Heart failure type: diastolic Heart failure chronicity: unspecified Qualified Code(s): I50.30 - Unspecified diastolic (congestive) heart failure Is this a current diagnosis for this admission?: Yes (9) Hypertension Qualifiers: Hypertension type: essential hypertension Qualified Code(s): I10 - Essential (primary) hypertension Is this a current diagnosis for this admission?: Yes
[2017-11-25] MEDS: GABAPENTIN 300 MG CAPSULE PO SCH (22:08)
[2017-11-26] MEDS: LANSOPRAZOLE 30 MG TAB.RAP.DR PO SCH ×2 (05:23→17:28)
[2017-11-26] MEDS: METHYLPREDNISOLONE INJ 40 MG/1 ML SDV IV SCH ×3 (05:24→22:47)
[2017-11-26] MEDS: FUROSEMIDE INJ/PF 20 MG/2 ML SDV IV SCH (07:45)
[2017-11-26 08:01] LABS: ANION GAP 18 (5-19); BLOOD UREA NITROGEN 34 mg/dL (7-20); CALCIUM 9.4 mg/dL (8.4-10.2); CARBON DIOXIDE 26 mmol/L (22-30); CHLORIDE 96 mmol/L (98-107); GLUCOSE 139 mg/dL (75-110); POTASSIUM 4.4 mmol/L (3.6-5.0); SODIUM 139.6 mmol/L (137-145)
[2017-11-26] MEDS: ENOXAPARIN SODIUM INJ 40 MG/0.4 ML DISP.SYRIN SUBCUT SCH (10:14)
[2017-11-26] MEDS: PAROXETINE HCL 20 MG TABLET PO SCH (10:15)
[2017-11-26] MEDS: SPIRONOLACTONE 25 MG TABLET PO SCH (10:15)
[2017-11-26] MEDS: SULFASALAZINE 500 MG TABLET.DR PO SCH ×2 (10:15→22:46)
[2017-11-26] MEDS: LEVOFLOXACIN 500 MG TABLET PO SCH (10:20)
[2017-11-26] MEDS: ATENOLOL 50 MG TABLET PO SCH (10:21)
[2017-11-26] MEDS: CEFTRIAXONE SODIUM 1,000 MG in NORMAL SALINE 100 ML IV SCH (10:21)
[2017-11-26] MEDS ORDERED: FUROSEMIDE 40 MG TABLET PO SCH (11:45)
--- NOTE | 2017-11-26 11:46 | PDOC PROGRESS REPORT ---
Subjective Progress Note for:: 11/26/17 Subjective:: Patient had an episode of chest pain. EKG was unchanged. However patient has baseline left bundle branch block pattern. BNP came back mildly elevated. It seems patient was on Ranexa which was not continued. Patient seems to be doing better with gradual improvement. Pt is denying any chest arm or neck discomfort. Patient denying any PND, orthopnea. Patient denied any sustained palpitations, dizziness, syncope, near syncope. Patient denying any fever chills. Patient denying any other significant discomfort. Patient is maintaining sinus rhythm. Review of systems: Rest review of systems negative. Medications: Medications have been reviewed. Reason For Visit: SOB/ACUTE CHF Physical Exam Vital Signs: Temp Pulse Resp BP Pulse Ox 97.8 F 56 L 16 109/50 L 94 11/26/17 07:57 11/26/17 08:48 11/26/17 08:48 11/26/17 07:57 11/26/17 08:48 Intake & Output 11/25/17 11/26/17 11/27/17 06:59 06:59 06:59 Intake Total 1878 1962 Balance 1878 1962 Weight 77 kg 75.2 kg Exam: GENERAL: well-nourished and in no acute distress. Alert and oriented x3 HEAD: Atraumatic, normocephalic. EYES: Pupils equal round and reactive to light, extraocular movements intact, sclera anicteric, conjunctiva are normal. ENT: TMs normal, nares patent, oropharynx clear without exudates. Moist mucous membranes. No oral ulcerations or bleeding gums noted NECK: supple without lymphadenopathy. Trachea is central. No cervical or axillary lymphadenopathy noted. Carotids are 2+, JVD WNL LUNGS: Respiration seems nonlabored, no significant accessory muscle action noted. Breath sounds clear to auscultation bilaterally and equal noted. No wheezes rales or rhonchi noted. No significant dullness noted on percussion. CHEST: Palpation of the chest wall shows no significant chest wall tenderness. No other significant abnormalities noted. 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 ABDOMEN: Soft, no significant tenderness appreciated, normoactive bowel sounds. No guarding, no rebound. No rigidity noted . No masses appreciated. EXTREMITIES: Pedal pulses are 1-2+, no calf tenderness noted. No clubbing or cyanosis.trace to 1+ pedal edema noted NEUROLOGICAL: Focused neurological exam showed no significant neurologic deficit. Normal speech, no focal weakness appreciated. PSYCH: Normal mood, normal affect. Judgment and insight within normal limits. SKIN: No significant ecchymosis, rash, ulcerations or signs of pruritus noted. MUSCULOSKELETAL EXAM: No significant joint swelling noted. Results Laboratory Results: 11/25/17 06:04 11/26/17 06:21 11/26/17 06:21 Sodium 139.6 Potassium 4.4 Chloride 96 L Carbon Dioxide 26 Anion Gap 18 BUN 34 H Creatinine 0.81 Est GFR ( Amer) > 60 Est GFR (Non-Af Amer) > 60 Glucose 139 H Calcium 9.4 11/22/17 11/22/17 11/22/17 12:25 12:25 17:25 Creatine Kinase 300 H 268 H CK-MB (CK-2) 4.78 H Troponin I 0.020 NT-Pro-B Natriuret Pep 11/22/17 11/22/17 11/22/17 17:25 23:25 23:25 Creatine Kinase 229 H CK-MB (CK-2) 4.46 3.69 Troponin I 0.020 0.023 NT-Pro-B Natriuret Pep 11/23/17 11/24/17 11/25/17 06:37 06:03 06:04 Creatine Kinase CK-MB (CK-2) Troponin I NT-Pro-B Natriuret Pep 1890 H 1470 H 1600 H EKG Comments: Showed sinus rhythm with mild intermittent sinus bradycardia with left bundle branch block pattern. Impressions: Chest/Abdomen CTA 11/22/17 09:05 IMPRESSION: No CT angio evidence of acute pulmonary emboli or thoracic aortic dissection. Thickened interlobular septa from mild interstitial edema. 5 mm and 6 mm nodules in the periphery of the right upper lobe, new compared to prior studies. Consider follow-up as per Fleischner recommendations Chest X-Ray 11/24/17 00:00 IMPRESSION: No acute changes. Chronic bronchiectasis and scarring in the right middle lobe and lingula Reticulonodular infiltrates seen by CT chest 11/22/2017 is difficult to appreciate today by plain film Assessment & Plan - Diagnosis (1) Dyspnea Qualifiers: Dyspnea type: dyspnea on exertion Qualified Code(s): R06.09 - Other forms of dyspnea Is this a current diagnosis for this admission?: Yes (2) COPD with acute exacerbation Is this a current diagnosis for this admission?: Yes (3) Congestive heart failure Qualifiers: Heart failure type: diastolic Heart failure chronicity: unspecified Qualified Code(s): I50.30 - Unspecified diastolic (congestive) heart failure Is this a current diagnosis for this admission?: Yes (4) Hypertension Qualifiers: Hypertension type: essential hypertension Qualified Code(s): I10 - Essential (primary) hypertension Is this a current diagnosis for this admission?: Yes (5) Hypertrophic cardiomyopathy Is this a current diagnosis for this admission?: Yes (6) Obesity Qualifiers: Obesity type: unspecified obesity type Body mass index: BMI 33.0-33.9 Is this a current diagnosis for this admission?: Yes (7) LBBB (left bundle branch block) Is this a current diagnosis for this admission?: Yes (8) Chest tightness Is this a current diagnosis for this admission?: Yes - Notes Notes: Multiple medication changes were made. Patient placed on p.o. Lasix, recommend restarting bisoprolol at home dose, started Ranexa. Recommend statin therapy, antiplatelet therapy. Dyspnea: Most likely related to combination of CHF and COPD with exacerbation. Patient currently feeling much better. This responded to both diuresis and treatment of COPD. 2D echo shows normal LVEF, mild LVH, grade 2 diastolic dysfunction. No significant valvular abnormalities were noted. Nuclear stress test negative for any definitive evidence of pharmacologic stress-induced ischemia. Congestive heart failure: BNP is elevated. Patient has abnormal EKG with left bundle branch block pattern. At this point patient will benefit from CHF pathway. Hypertension: Blood pressure goal should be less than 135/85 in patients with CHF. Cardiomyopathy: Presumably hypertrophic cardiomyopathy based on history of surgery. Patient has been told to report any overt syncope, near syncope. Obesity: Patient will benefit from weight loss. Chest Tightness: possible CHF and diastolic dysfuction vs COPD vs angina. Enzymes and ekgs currently negative. Nuclear stress test results reviewed. Nuclear stress test negative for ischemia. Patient could have microvascular disease. In fact microvascular disease is common in patients with hypertrophic cardiomyopathy. Start Ranexa at 500 mg p.o. twice daily and increased to 1000 p.o. twice daily. Also recommend starting patient's home dose of beta-ish rather than atenolol. Please note that during her heart catheterization is 2009 , coronaries were noted to be widely patent. LBBBB : possibly chronic. Sleep disorder: I believe patient has high probability of underlying sleep apnea. It may be worthwhile to consider repeating the sleep study. This will be scheduled as an outpatient. - Time Time with patient: Greater than 35 minutes - CODE STATUS was discussed, patient remains full code. Surrogate decision-maker unchanged. Multiple medical problems were addressed. More than 50% of the time spent coordinating care, discussing management plans with involved caregivers. Management plans discussed with involved personnels. Medical decision making was of moderate to high complexity, patient's has multiple comorbidities. Medications reviewed and adjusted accordingly: Yes
--- NOTE | 2017-11-26 14:14 | PDOC PROGRESS REPORT ---
Subjective Progress Note for:: 11/26/17 Subjective:: Patient seen by the bedside, still complaining of chest pain Reason For Visit: SOB/ACUTE CHF Physical Exam Vital Signs: Temp Pulse Resp BP Pulse Ox 98.7 F 59 L 16 106/40 L 93 11/26/17 12:15 11/26/17 12:15 11/26/17 12:15 11/26/17 12:15 11/26/17 12:15 Intake & Output 11/25/17 11/26/17 11/27/17 06:59 06:59 06:59 Intake Total 1878 1962 Balance 1878 1962 Weight 77 kg 75.2 kg General appearance: PRESENT: no acute distress Eye exam: PRESENT: PERRLA Respiratory exam: PRESENT: clear to auscultation lauren Cardiovascular exam: PRESENT: +S1, +S2 GI/Abdominal exam: PRESENT: soft Neurological exam: PRESENT: alert Results Laboratory Results: 11/25/17 06:04 11/26/17 06:21 11/26/17 06:21 Sodium 139.6 Potassium 4.4 Chloride 96 L Carbon Dioxide 26 Anion Gap 18 BUN 34 H Creatinine 0.81 Est GFR ( Amer) > 60 Est GFR (Non-Af Amer) > 60 Glucose 139 H Calcium 9.4 11/22/17 11/22/17 11/22/17 12:25 12:25 17:25 Creatine Kinase 300 H 268 H CK-MB (CK-2) 4.78 H Troponin I 0.020 NT-Pro-B Natriuret Pep 11/22/17 11/22/17 11/22/17 17:25 23:25 23:25 Creatine Kinase 229 H CK-MB (CK-2) 4.46 3.69 Troponin I 0.020 0.023 NT-Pro-B Natriuret Pep 11/23/17 11/24/17 11/25/17 06:37 06:03 06:04 Creatine Kinase CK-MB (CK-2) Troponin I NT-Pro-B Natriuret Pep 1890 H 1470 H 1600 H Impressions: Chest/Abdomen CTA 11/22/17 09:05 IMPRESSION: No CT angio evidence of acute pulmonary emboli or thoracic aortic dissection. Thickened interlobular septa from mild interstitial edema. 5 mm and 6 mm nodules in the periphery of the right upper lobe, new compared to prior studies. Consider follow-up as per Floischner recommendations Chest X-Ray 11/24/17 00:00 IMPRESSION: No acute changes. Chronic bronchiectasis and scarring in the right middle lobe and lingula Reticulonodular infiltrates seen by CT chest 11/22/2017 is difficult to appreciate today by plain film Assessment & Plan - Diagnosis (1) Heart failure Qualifiers: Heart failure type: unspecified Heart failure chronicity: acute on chronic Qualified Code(s): I50.9 - Heart failure, unspecified Is this a current diagnosis for this admission?: Yes (2) Dyspnea Qualifiers: Dyspnea type: dyspnea on exertion Qualified Code(s): R06.09 - Other forms of dyspnea Is this a current diagnosis for this admission?: Yes (3) Snoring Is this a current diagnosis for this admission?: Yes (4) Obesity Qualifiers: Obesity type: unspecified obesity type Body mass index: BMI 33.0-33.9 Is this a current diagnosis for this admission?: Yes (5) Hypertrophic cardiomyopathy Is this a current diagnosis for this admission?: Yes (6) History of tobacco use Is this a current diagnosis for this admission?: Yes (7) Shortness of breath Is this a current diagnosis for this admission?: Yes (8) Congestive heart failure Qualifiers: Heart failure type: diastolic Heart failure chronicity: unspecified Qualified Code(s): I50.30 - Unspecified diastolic (congestive) heart failure Is this a current diagnosis for this admission?: Yes (9) Hypertension Qualifiers: Hypertension type: essential hypertension Qualified Code(s): I10 - Essential (primary) hypertension Is this a current diagnosis for this admission?: Yes - Plan Summary Plan Summary: She continues same treatment
[2017-11-26] MEDS: GABAPENTIN 300 MG CAPSULE PO SCH (22:45)
[2017-11-26] MEDS: RANOLAZINE 500 MG TAB.SR.12H PO SCH (22:46)
[2017-11-27] MEDS: METHYLPREDNISOLONE INJ 40 MG/1 ML SDV IV SCH (06:28)
[2017-11-27] MEDS: LANSOPRAZOLE 30 MG TAB.RAP.DR PO SCH ×2 (06:28→17:23)
[2017-11-27] MEDS: ENOXAPARIN SODIUM INJ 40 MG/0.4 ML DISP.SYRIN SUBCUT SCH (09:42)
[2017-11-27] MEDS: SPIRONOLACTONE 25 MG TABLET PO SCH (09:42)
[2017-11-27] MEDS: LEVOFLOXACIN 500 MG TABLET PO SCH (09:43)
[2017-11-27] MEDS: PREDNISONE 20 MG TABLET PO SCH ×2 (09:43→17:23)
[2017-11-27] MEDS: RANOLAZINE 500 MG TAB.SR.12H PO SCH ×2 (09:43→23:34)
[2017-11-27] MEDS: CEFTRIAXONE SODIUM 1,000 MG in NORMAL SALINE 100 ML IV SCH (09:43)
[2017-11-27] MEDS: FUROSEMIDE 20 MG TABLET PO SCH (09:43)
[2017-11-27] MEDS: PAROXETINE HCL 20 MG TABLET PO SCH (09:43)
[2017-11-27] MEDS ORDERED: FUROSEMIDE 40 MG TABLET PO SCH (10:00)
[2017-11-27] MEDS: SULFASALAZINE 500 MG TABLET.DR PO SCH ×2 (12:54→23:33)
--- NOTE | 2017-11-27 13:42 | PDOC PROGRESS REPORT ---
Subjective Progress Note for:: 11/27/17 Subjective:: Patient is currently doing much better Recent have a Cardiolite stress test was done was all negative per cardiology Patients have a recently several medication was started by cardiology Currently doing well no chest pain no short of breath Reason For Visit: SOB/ACUTE CHF Physical Exam Vital Signs: Temp Pulse Resp BP Pulse Ox 98.2 F 59 L 16 118/56 L 99 11/27/17 08:18 11/27/17 10:53 11/27/17 10:53 11/27/17 08:18 11/27/17 10:53 Intake & Output 11/26/17 11/27/17 11/28/17 06:59 06:59 06:59 Intake Total 1963 1360 Output Total 0 Balance 1962 1360 Weight 75.2 kg 76.3 kg General appearance: PRESENT: no acute distress, well-developed, well-nourished Head exam: PRESENT: atraumatic, normocephalic Eye exam: PRESENT: conjunctiva pink, EOMI, PERRLA. ABSENT: scleral icterus Ear exam: PRESENT: normal external ear exam Mouth exam: PRESENT: moist, tongue midline Neck exam: PRESENT: full ROM. ABSENT: carotid bruit, JVD, lymphadenopathy, thyromegaly Respiratory exam: PRESENT: clear to auscultation lauren Cardiovascular exam: PRESENT: RRR. ABSENT: diastolic murmur, rubs, systolic murmur Pulses: PRESENT: normal dorsalis pedis pul, +2 pedal pulses bilateral Vascular exam: PRESENT: normal capillary refill GI/Abdominal exam: PRESENT: normal bowel sounds, soft. ABSENT: distended, guarding, mass, organolmegaly, rebound, tenderness Rectal exam: PRESENT: deferred Extremities exam: ABSENT: pedal edema Musculoskeletal exam: PRESENT: ambulatory Neurological exam: PRESENT: alert, awake, oriented to person, oriented to place , oriented to time, oriented to situation, CN II-XII grossly intact. ABSENT: motor sensory deficit Psychiatric exam: PRESENT: appropriate affect, normal mood. ABSENT: homicidal ideation, suicidal ideation Skin exam: PRESENT: dry, intact, warm. ABSENT: cyanosis, rash Results Laboratory Results: 11/25/17 06:04 11/26/17 06:21 11/22/17 12:15 Blood Blood Culture - Final NO GROWTH IN 5 DAYS 11/22/17 12:25 Blood Blood Culture - Final NO GROWTH IN 5 DAYS 11/22/17 11/22/17 11/22/17 12:25 12:25 17:25 Creatine Kinase 300 H 268 H CK-MB (CK-2) 4.78 H Troponin I 0.020 NT-Pro-B Natriuret Pep 11/22/17 11/22/17 11/22/17 17:25 23:25 23:25 Creatine Kinase 229 H CK-MB (CK-2) 4.46 3.69 Troponin I 0.020 0.023 NT-Pro-B Natriuret Pep 11/23/17 11/24/17 11/25/17 06:37 06:03 06:04 Creatine Kinase CK-MB (CK-2) Troponin I NT-Pro-B Natriuret Pep 1890 H 1470 H 1600 H Impressions: Chest/Abdomen CTA 11/22/17 09:05 IMPRESSION: No CT angio evidence of acute pulmonary emboli or thoracic aortic dissection. Thickened interlobular septa from mild interstitial edema. 5 mm and 6 mm nodules in the periphery of the right upper lobe, new compared to prior studies. Consider follow-up as per Fleischner recommendations Chest X-Ray 11/24/17 00:00 IMPRESSION: No acute changes. Chronic bronchiectasis and scarring in the right middle lobe and lingula Reticulonodular infiltrates seen by CT chest 11/22/2017 is difficult to appreciate today by plain film Assessment & Plan - Diagnosis (1) Shortness of breath Is this a current diagnosis for this admission?: Yes Plan: With the multifactorial including the congestive heart failure with some COPD component Patient CT angiogram is negative for any pulmonary embolisms initial EKG and cardiac enzymes also negative Will continue some nebulizer treatments continues to IV steroidAnd IV Lasix We will consult the pulmonary and consult the cardiology for further evaluations (2) Congestive heart failure Qualifiers: Heart failure type: diastolic Heart failure chronicity: unspecified Qualified Code(s): I50.30 - Unspecified diastolic (congestive) heart failure Is this a current diagnosis for this admission?: Yes Plan: Continues IV Lasix will wait for the echo reportFollow with cardiology (3) COPD with acute exacerbation Is this a current diagnosis for this admission?: Yes Plan: 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 we will review the CT scan report with the pulmonary continues to current medications: Nebulizer We will add diabetes if he is to go what is any kind of bacterial infections with elevated white count mostly related to possible steroid (4) Hypertension Qualifiers: Hypertension type: essential hypertension Qualified Code(s): I10 - Essential (primary) hypertension Is this a current diagnosis for this admission?: Yes Plan: Currently all stable (5) Rheumatoid arthritis Qualifiers: Rheumatoid arthritis location: unspecified site Is this a current diagnosis for this admission?: Yes Plan: 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
[2017-11-27] MEDS ORDERED: METOPROLOL TARTRATE PF/INJ 5 MG/5 ML SDV IV ONE (18:48)
--- NOTE | 2017-11-27 19:15 | EKG REPORT ---
SEVERITY:- ABNORMAL ECG - ATRIAL FLUTTER, A-RATE 326 VENTRICULAR PREMATURE COMPLEX LEFT BUNDLE BRANCH BLOCK : Confirmed by: Chris Mohr MD 27-Nov-2017 19:14:38
[2017-11-27] MEDS ORDERED: METOPROLOL TARTRATE 25 MG TABLET PO ONE (19:30)
--- NOTE | 2017-11-27 20:10 | PDOC PROGRESS REPORT ---
Subjective Progress Note for:: 11/27/17 Subjective:: Patient was seen on morning rounds and noted to be ambulating in the hallway without any problems. Patient seems to be doing better with gradual improvement. Pt is denying any chest arm or neck discomfort. Patient denying any PND, orthopnea. Patient denied any sustained palpitations, dizziness, syncope, near syncope. Patient denying any fever chills. Patient denying any other significant discomfort. Patient is maintaining sinus rhythm. Review of systems: Rest review of systems negative. Medications: Medications have been reviewed. Reason For Visit: SOB/ACUTE CHF Physical Exam Vital Signs: Temp Pulse Resp BP Pulse Ox 98.2 F 80 16 118/56 L 99 11/27/17 08:18 11/27/17 14:00 11/27/17 10:53 11/27/17 08:18 11/27/17 10:53 Intake & Output 11/26/17 11/27/17 11/28/17 06:59 06:59 06:59 Intake Total 1962 1360 53 Output Total 0 Balance 1962 1360 53 Weight 75.2 kg 76.3 kg Exam: GENERAL: well-nourished and in no acute distress. Alert and oriented x3 HEAD: Atraumatic, normocephalic. EYES: Pupils equal round and reactive to light, extraocular movements intact, sclera anicteric, conjunctiva are normal. ENT: TMs normal, nares patent, oropharynx clear without exudates. Moist mucous membranes. No oral ulcerations or bleeding gums noted NECK: supple without lymphadenopathy. Trachea is central. No cervical or axillary lymphadenopathy noted. Carotids are 2+, JVD WNL LUNGS: Respiration seems nonlabored, no significant accessory muscle action noted. Breath sounds clear to auscultation bilaterally and equal noted. No wheezes rales or rhonchi noted. No significant dullness noted on percussion. CHEST: Palpation of the chest wall shows no significant chest wall tenderness. No other significant abnormalities noted. 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 ABDOMEN: Soft, no significant tenderness appreciated, normoactive bowel sounds. No guarding, no rebound. No rigidity noted . No masses appreciated. EXTREMITIES: Pedal pulses are 1-2+, no calf tenderness noted. No clubbing or cyanosis.trace to 1+ pedal edema noted NEUROLOGICAL: Focused neurological exam showed no significant neurologic deficit. Normal speech, no focal weakness appreciated. PSYCH: Normal mood, normal affect. Judgment and insight within normal limits. SKIN: No significant ecchymosis, rash, ulcerations or signs of pruritus noted. MUSCULOSKELETAL EXAM: No significant joint swelling noted. Results Laboratory Results: 11/25/17 06:04 11/26/17 06:21 11/22/17 12:15 Blood Blood Culture - Final NO GROWTH IN 5 DAYS 11/22/17 12:25 Blood Blood Culture - Final NO GROWTH IN 5 DAYS 11/22/17 11/22/17 11/22/17 12:25 12:25 17:25 Creatine Kinase 300 H 268 H CK-MB (CK-2) 4.78 H Troponin I 0.020 NT-Pro-B Natriuret Pep 11/22/17 11/22/17 11/22/17 17:25 23:25 23:25 Creatine Kinase 229 H CK-MB (CK-2) 4.46 3.69 Troponin I 0.020 0.023 NT-Pro-B Natriuret Pep 11/23/17 11/24/17 11/25/17 06:37 06:03 06:04 Creatine Kinase CK-MB (CK-2) Troponin I NT-Pro-B Natriuret Pep 1890 H 1470 H 1600 H EKG Comments: Telemetry strips shows sinus rhythm with left bundle branch block pattern. Impressions: Chest/Abdomen CTA 11/22/17 09:05 IMPRESSION: No CT angio evidence of acute pulmonary emboli or thoracic aortic dissection. Thickened interlobular septa from mild interstitial edema. 5 mm and 6 mm nodules in the periphery of the right upper lobe, new compared to prior studies. Consider follow-up as per Fleischner recommendations Chest X-Ray 11/24/17 00:00 IMPRESSION: No acute changes. Chronic bronchiectasis and scarring in the right middle lobe and lingula Reticulonodular infiltrates seen by CT chest 11/22/2017 is difficult to appreciate today by plain film Assessment & Plan - Diagnosis (1) Dyspnea Qualifiers: Dyspnea type: dyspnea on exertion Qualified Code(s): R06.09 - Other forms of dyspnea Is this a current diagnosis for this admission?: Yes (2) COPD with acute exacerbation Is this a current diagnosis for this admission?: Yes (3) Congestive heart failure Qualifiers: Heart failure type: diastolic Heart failure chronicity: unspecified Qualified Code(s): I50.30 - Unspecified diastolic (congestive) heart failure Is this a current diagnosis for this admission?: Yes (4) Hypertension Qualifiers: Hypertension type: essential hypertension Qualified Code(s): I10 - Essential (primary) hypertension Is this a current diagnosis for this admission?: Yes (5) Hypertrophic cardiomyopathy Is this a current diagnosis for this admission?: Yes (6) Obesity Qualifiers: Obesity type: unspecified obesity type Body mass index: BMI 33.0-33.9 Is this a current diagnosis for this admission?: Yes (7) LBBB (left bundle branch block) Is this a current diagnosis for this admission?: Yes (8) Chest tightness Is this a current diagnosis for this admission?: Yes (9) Atrial fibrillation with RVR Is this a current diagnosis for this admission?: Yes (10) Paroxysmal A-fib Is this a current diagnosis for this admission?: Yes - Notes Notes: Dyspnea: Most likely related to combination of CHF and COPD with exacerbation. Patient currently feeling much better. This responded to both diuresis and treatment of COPD. 2D echo shows normal LVEF, mild LVH, grade 2 diastolic dysfunction. No significant valvular abnormalities were noted. Nuclear stress test negative for any definitive evidence of pharmacologic stress-induced ischemia. Congestive heart failure: BNP is elevated. Patient has abnormal EKG with left bundle branch block pattern. At this point patient will benefit from CHF pathway. Hypertension: Blood pressure goal should be less than 135/85 in patients with CHF. Cardiomyopathy: Presumably hypertrophic cardiomyopathy based on history of surgery. Patient has been told to report any overt syncope, near syncope. Obesity: Patient will benefit from weight loss. Chest Tightness: possible CHF and diastolic dysfuction vs COPD vs angina. Enzymes and ekgs currently negative. Nuclear stress test results reviewed. Nuclear stress test negative for ischemia. Patient could have microvascular disease. In fact microvascular disease is common in patients with hypertrophic cardiomyopathy. Start Ranexa at 500 mg p.o. twice daily and increased to 1000 p.o. twice daily. Also recommend starting patient's home dose of beta-ish rather than atenolol. Please note that during her heart catheterization is 2009 , coronaries were noted to be widely patent. LBBBB : possibly chronic. Sleep disorder: I believe patient has high probability of underlying sleep apnea. It may be worthwhile to consider repeating the sleep study. This will be scheduled as an outpatient. Addendum: Patient seen again at the request of Dr. Castaneda. She was noted to be in atrial flutter fibrillation with rapid ventricular response. Orders were given for IV Lopressor 5 mg 3 and to start patient on metoprolol succinate 25 mg p.o. twice daily. Patient to be switched over to bisoprolol tomorrow. If patient remains in atrial fibrillation overnight, would recommend patient be started on Eliquis therapy. Discussed with Dr. Castaneda. - Time Time with patient: Greater than 35 minutes - CODE STATUS was discussed, patient remains full code. Surrogate decision-maker unchanged. Multiple medical problems were addressed. More than 50% of the time spent coordinating care, discussing management plans with involved caregivers. Management plans discussed with involved personnels. Medical decision making was of moderate to high complexity, patient's has multiple comorbidities. Medications reviewed and adjusted accordingly: Yes
[2017-11-27] MEDS ORDERED: METOPROLOL TARTRATE PF/INJ 5 MG/5 ML SDV IV PRN (20:30)
[2017-11-27] MEDS: GABAPENTIN 300 MG CAPSULE PO SCH (23:34)
[2017-11-28] MEDS: RANOLAZINE 500 MG TAB.SR.12H PO SCH ×3 (01:12→22:22)
[2017-11-28 05:05] LABS: ABSOLUTE LYMPHOCYTES (AUTO) 1.1 10^3/uL (0.5-4.7); ABSOLUTE MONOCYTES (AUTO) 0.8 10^3/uL (0.1-1.4); ABSOLUTE NEUT (AUTO) 5.7 10^3/uL (1.7-8.2); BASOPHILS % (AUTO) 0.2 % (0-2); EOSINOPHILS % (AUTO) 0.1 % (0-6); HEMATOCRIT 41.3 % (36.0-47.0); HEMOGLOBIN 13.9 g/dL (12.0-15.5); LYMPHOCYTES % (AUTO) 14.8 % (13-45); MEAN CORPUSCULAR HEMOGLOBIN 29.8 pg (27.0-33.4); MEAN CORPUSCULAR HGB CONC 33.5 g/dL (32.0-36.0); MEAN CORPUSCULAR VOLUME 89 fl (80-97); MONOCYTES % (AUTO) 10.7 % (3-13); PLATELET COUNT 235 10^3/uL (150-450); RED BLOOD COUNT 4.65 10^6/uL (3.72-5.28); RED CELL DISTRIBUTION WIDTH 15.3 % (11.5-14.0); SEGMENTED NEUTROPHILS % (AUTO) 74.2 % (42-78); TOTAL CELLS COUNTED % (AUTO) 100 %; WHITE BLOOD COUNT 7.7 10^3/uL (4.0-10.5)
[2017-11-28 05:29] LABS: ANION GAP 14 (5-19); BLOOD UREA NITROGEN 30 mg/dL (7-20); CALCIUM 9.5 mg/dL (8.4-10.2); CARBON DIOXIDE 29 mmol/L (22-30); CHLORIDE 99 mmol/L (98-107); GLUCOSE 140 mg/dL (75-110); POTASSIUM 4.2 mmol/L (3.6-5.0); SODIUM 141.6 mmol/L (137-145)
[2017-11-28] MEDS: LANSOPRAZOLE 30 MG TAB.RAP.DR PO SCH ×2 (06:50→17:32)
[2017-11-28] MEDS: BISOPROLOL 5 MG PO SCH (09:19)
[2017-11-28] MEDS: SULFASALAZINE 500 MG TABLET.DR PO SCH ×2 (09:20→22:22)
[2017-11-28] MEDS: LEVOFLOXACIN 500 MG TABLET PO SCH (09:20)
[2017-11-28] MEDS: FUROSEMIDE 20 MG TABLET PO SCH (09:20)
[2017-11-28] MEDS: PREDNISONE 20 MG TABLET PO SCH ×2 (09:20→17:32)
[2017-11-28] MEDS: ENOXAPARIN SODIUM INJ 40 MG/0.4 ML DISP.SYRIN SUBCUT SCH (09:21)
[2017-11-28] MEDS: PAROXETINE HCL 20 MG TABLET PO SCH (09:21)
[2017-11-28] MEDS: SPIRONOLACTONE 25 MG TABLET PO SCH (09:25)
[2017-11-28] MEDS ORDERED: (PENDING PHARMACY ID) (Bisoprolol Fumarate [Zebeta 5 Mg Tablet] 1 TAB) PO SCH (10:00)
[2017-11-28] MEDS ORDERED: METOPROLOL TARTRATE 25 MG TABLET PO SCH (10:00)
--- NOTE | 2017-11-28 11:55 | PDOC PROGRESS REPORT ---
Subjective Progress Note for:: 11/28/17 Subjective:: Patient is currently doing fair Since yesterday went for the A. fib with a heart rate was 130 And patient was started on the beta-ish per Dr. Agustin currently doing well She is denied any chest pain denied any shortness of the breath Reason For Visit: SOB/ACUTE CHF Physical Exam Vital Signs: Temp Pulse Resp BP Pulse Ox 98.3 F 63 18 117/65 99 11/28/17 07:52 11/28/17 07:52 11/28/17 07:52 11/28/17 07:52 11/28/17 07:52 Intake & Output 11/27/17 11/28/17 11/29/17 06:59 06:59 06:59 Intake Total 1360 58 Output Total 0 Balance 1360 58 Weight 76.3 kg 77.5 kg General appearance: PRESENT: no acute distress, well-developed, well-nourished Head exam: PRESENT: atraumatic, normocephalic Eye exam: PRESENT: conjunctiva pink, EOMI, PERRLA. ABSENT: scleral icterus Ear exam: PRESENT: normal external ear exam Mouth exam: PRESENT: moist, tongue midline Neck exam: PRESENT: full ROM. ABSENT: carotid bruit, JVD, lymphadenopathy, thyromegaly Respiratory exam: PRESENT: clear to auscultation lauren Cardiovascular exam: PRESENT: RRR. ABSENT: diastolic murmur, rubs, systolic murmur Pulses: PRESENT: normal dorsalis pedis pul, +2 pedal pulses bilateral Vascular exam: PRESENT: normal capillary refill GI/Abdominal exam: PRESENT: normal bowel sounds, soft. ABSENT: distended, guarding, mass, organolmegaly, rebound, tenderness Rectal exam: PRESENT: deferred Extremities exam: ABSENT: full ROM, left AKA, right AKA, left BKA, right BKA, calf tenderness, joint swelling, pedal edema, tenderness, other Musculoskeletal exam: PRESENT: ambulatory Neurological exam: PRESENT: alert, awake, oriented to person, oriented to place , oriented to time, oriented to situation, CN II-XII grossly intact. ABSENT: motor sensory deficit Psychiatric exam: PRESENT: appropriate affect, normal mood. ABSENT: homicidal ideation, suicidal ideation Skin exam: PRESENT: dry, intact, warm. ABSENT: cyanosis, rash Results Laboratory Results: 11/28/17 04:34 11/28/17 04:34 11/27/17 11/28/17 11/28/17 20:13 04:34 04:34 WBC 7.7 RBC 4.65 Hgb 13.9 Hct 41.3 MCV 89 MCH 29.8 MCHC 33.5 RDW 15.3 H Plt Count 235 Seg Neutrophils % 74.2 Lymphocytes % 14.8 Monocytes % 10.7 Eosinophils % 0.1 Basophils % 0.2 Absolute Neutrophils 5.7 Absolute Lymphocytes 1.1 Absolute Monocytes 0.8 Absolute Eosinophils 0.0 Absolute Basophils 0.0 Sodium 141.6 Potassium 4.2 Chloride 99 Carbon Dioxide 29 Anion Gap 14 BUN 30 H Creatinine 0.70 Est GFR ( Amer) > 60 Est GFR (Non-Af Amer) > 60 Glucose 140 H Calcium 9.5 Magnesium 2.2 11/22/17 12:15 Blood Blood Culture - Final NO GROWTH IN 5 DAYS 11/22/17 12:25 Blood Blood Culture - Final NO GROWTH IN 5 DAYS 11/22/17 11/22/17 11/22/17 12:25 12:25 17:25 Creatine Kinase 300 H 268 H CK-MB (CK-2) 4.78 H Troponin I 0.020 NT-Pro-B Natriuret Pep 11/22/17 11/22/17 11/22/17 17:25 23:25 23:25 Creatine Kinase 229 H CK-MB (CK-2) 4.46 3.69 Troponin I 0.020 0.023 NT-Pro-B Natriuret Pep 11/23/17 11/24/17 11/25/17 06:37 06:03 06:04 Creatine Kinase CK-MB (CK-2) Troponin I NT-Pro-B Natriuret Pep 1890 H 1470 H 1600 H Impressions: Chest/Abdomen CTA 11/22/17 09:05 IMPRESSION: No CT angio evidence of acute pulmonary emboli or thoracic aortic dissection. Thickened interlobular septa from mild interstitial edema. 5 mm and 6 mm nodules in the periphery of the right upper lobe, new compared to prior studies. Consider follow-up as per Fleischner recommendations Chest X-Ray 11/24/17 00:00 IMPRESSION: No acute changes. Chronic bronchiectasis and scarring in the right middle lobe and lingula Reticulonodular infiltrates seen by CT chest 11/22/2017 is difficult to appreciate today by plain film Assessment & Plan - Diagnosis (1) Shortness of breath Is this a current diagnosis for this admission?: Yes Plan: With the multifactorial including the congestive heart failure with some COPD component Patient CT angiogram is negative for any pulmonary embolisms initial EKG and cardiac enzymes also negative Will continue some nebulizer treatments continues to IV steroidAnd IV Lasix We will consult the pulmonary and consult the cardiology for further evaluations (2) Congestive heart failure Qualifiers: Heart failure type: diastolic Heart failure chronicity: unspecified Qualified Code(s): I50.30 - Unspecified diastolic (congestive) heart failure Is this a current diagnosis for this admission?: Yes Plan: Continues IV Lasix will wait for the echo reportFollow with cardiology (3) COPD with acute exacerbation Is this a current diagnosis for this admission?: Yes Plan: 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 we will review the CT scan report with the pulmonary continues to current medications: Nebulizer We will add diabetes if he is to go what is any kind of bacterial infections with elevated white count mostly related to possible steroid (4) Hypertension Qualifiers: Hypertension type: essential hypertension Qualified Code(s): I10 - Essential (primary) hypertension Is this a current diagnosis for this admission?: Yes Plan: Currently all stable (5) Rheumatoid arthritis Qualifiers: Rheumatoid arthritis location: unspecified site Is this a current diagnosis for this admission?: Yes Plan: 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 (6) Hypertrophic cardiomyopathy Is this a current diagnosis for this admission?: Yes Plan: Currently stable - Time Time Spent with patient: 15-24 minutes Medications reviewed and adjusted accordingly: Yes Anticipated discharge: Home Within: within 24 hours - Inpatient Certification Medical Necessity: Need Close Monitoring Due to Risk of Patient Decompensation Post Hospital Care: D/C Prescription Benefit Specialist Documentation - Plan Summary Plan Summary: Discussed with the patient and daughter about the patient's current conditions per cardiology patient stated outpatients in the [facility] for further EP study
--- NOTE | 2017-11-28 15:28 | PDOC PROGRESS REPORT ---
Subjective Progress Note for:: 11/28/17 Subjective:: Feeling much better She still notes dyspnea on exertion but not as bad as initially Reason For Visit: SOB/ACUTE CHF Physical Exam Vital Signs: Temp Pulse Resp BP Pulse Ox 97.7 F 57 L 14 116/57 L 99 11/28/17 11:56 11/28/17 14:00 11/28/17 11:56 11/28/17 11:56 11/28/17 11:56 Intake & Output 11/27/17 11/28/17 11/29/17 06:59 06:59 06:59 Intake Total 1360 58 355 Output Total 0 0 Balance 1360 58 355 Weight 76.3 kg 77.5 kg General appearance: PRESENT: no acute distress, cooperative, disheveled, obese, well-developed Head exam: PRESENT: normocephalic Eye exam: PRESENT: conjunctiva pale, EOMI. ABSENT: nystagmus, periorbital swelling, scleral icterus Mouth exam: PRESENT: dry mucosa, neck supple, tongue midline Neck exam: ABSENT: carotid bruit, JVD, lymphadenopathy, thyromegaly, tracheal deviation, tracheostomy Respiratory exam: PRESENT: decreased breath sounds, prolonged expiratory phas, rhonchi, stridor, symmetrical, unlabored. ABSENT: clear to auscultation lauren, crackles, rales, retraction, tachypnea, wheezes Cardiovascular exam: PRESENT: RRR, +S1, +S2 Pulses: PRESENT: normal radial pulses GI/Abdominal exam: PRESENT: diminished bowel sounds, soft Extremities exam: PRESENT: full ROM. ABSENT: calf tenderness, clubbing Musculoskeletal exam: PRESENT: ambulatory, full ROM. ABSENT: deformity, dislocation Neurological exam: PRESENT: alert, awake Skin exam: PRESENT: dry, warm Results Laboratory Results: 11/28/17 04:34 11/28/17 04:34 11/27/17 11/28/17 11/28/17 20:13 04:34 04:34 WBC 7.7 RBC 4.65 Hgb 13.9 Hct 41.3 MCV 89 MCH 29.8 MCHC 33.5 RDW 15.3 H Plt Count 235 Seg Neutrophils % 74.2 Lymphocytes % 14.8 Monocytes % 10.7 Eosinophils % 0.1 Basophils % 0.2 Absolute Neutrophils 5.7 Absolute Lymphocytes 1.1 Absolute Monocytes 0.8 Absolute Eosinophils 0.0 Absolute Basophils 0.0 Sodium 141.6 Potassium 4.2 Chloride 99 Carbon Dioxide 29 Anion Gap 14 BUN 30 H Creatinine 0.70 Est GFR ( Amer) > 60 Est GFR (Non-Af Amer) > 60 Glucose 140 H Calcium 9.5 Magnesium 2.2 11/22/17 12:15 Blood Blood Culture - Final NO GROWTH IN 5 DAYS 11/22/17 12:25 Blood Blood Culture - Final NO GROWTH IN 5 DAYS 11/22/17 11/22/17 11/22/17 12:25 12:25 17:25 Creatine Kinase 300 H 268 H CK-MB (CK-2) 4.78 H Troponin I 0.020 NT-Pro-B Natriuret Pep 11/22/17 11/22/17 11/22/17 17:25 23:25 23:25 Creatine Kinase 229 H CK-MB (CK-2) 4.46 3.69 Troponin I 0.020 0.023 NT-Pro-B Natriuret Pep 11/23/17 11/24/17 11/25/17 06:37 06:03 06:04 Creatine Kinase CK-MB (CK-2) Troponin I NT-Pro-B Natriuret Pep 1890 H 1470 H 1600 H Impressions: Chest/Abdomen CTA 11/22/17 09:05 IMPRESSION: No CT angio evidence of acute pulmonary emboli or thoracic aortic dissection. Thickened interlobular septa from mild interstitial edema. 5 mm and 6 mm nodules in the periphery of the right upper lobe, new compared to prior studies. Consider follow-up as per Fleischner recommendations Chest X-Ray 11/24/17 00:00 IMPRESSION: No acute changes. Chronic bronchiectasis and scarring in the right middle lobe and lingula Reticulonodular infiltrates seen by CT chest 11/22/2017 is difficult to appreciate today by plain film Assessment & Plan - Diagnosis (1) Snoring Is this a current diagnosis for this admission?: Yes Plan: Nocturnal polysomnogram needed (2) Obesity Qualifiers: Obesity type: unspecified obesity type Body mass index: BMI 33.0-33.9 Is this a current diagnosis for this admission?: Yes (3) Hypertrophic cardiomyopathy Is this a current diagnosis for this admission?: Yes Plan: Dr. Jcarlos Carmona animal trapper [facility] (4) History of tobacco use Is this a current diagnosis for this admission?: Yes Plan: Bedside spirometry did not substantiate a diagnosis of obstructive ventilatory defect.Rather some degree of restriction was implied
--- NOTE | 2017-11-28 19:54 | PDOC PROGRESS REPORT ---
Subjective Progress Note for:: 11/28/17 Subjective:: Patient was seen on morning rounds and noted to be doing better having converted back to sinus rhythm. Patient seems to be doing better with gradual improvement. Pt is denying any chest arm or neck discomfort. Patient denying any PND, orthopnea. Patient denied any sustained palpitations, dizziness, syncope, near syncope. Patient denying any fever chills. Patient denying any other significant discomfort. Patient is maintaining sinus rhythm. Yesterday evening patient was noted to be in atrial fibrillation with rapid ventricular response. Review of systems: Rest review of systems negative. Medications: Medications have been reviewed. Reason For Visit: SOB/ACUTE CHF Physical Exam Vital Signs: Temp Pulse Resp BP Pulse Ox 98.6 F 60 16 116/55 L 97 11/28/17 15:54 11/28/17 15:54 11/28/17 15:54 11/28/17 15:54 11/28/17 15:54 Intake & Output 11/27/17 11/28/17 11/29/17 06:59 06:59 06:59 Intake Total 1360 58 1002 Output Total 0 0 Balance 1360 58 1002 Weight 76.3 kg 77.5 kg 77.5 kg Exam: GENERAL: well-nourished and in no acute distress. Alert and oriented x3 HEAD: Atraumatic, normocephalic. EYES: Pupils equal round and reactive to light, extraocular movements intact, sclera anicteric, conjunctiva are normal. ENT: TMs normal, nares patent, oropharynx clear without exudates. Moist mucous membranes. No oral ulcerations or bleeding gums noted NECK: supple without lymphadenopathy. Trachea is central. No cervical or axillary lymphadenopathy noted. Carotids are 2+, JVD WNL LUNGS: Respiration seems nonlabored, no significant accessory muscle action noted. Breath sounds clear to auscultation bilaterally and equal noted. No wheezes rales or rhonchi noted. No significant dullness noted on percussion. CHEST: Palpation of the chest wall shows no significant chest wall tenderness. No other significant abnormalities noted. 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 ABDOMEN: Soft, no significant tenderness appreciated, normoactive bowel sounds. No guarding, no rebound. No rigidity noted . No masses appreciated. EXTREMITIES: Pedal pulses are 1-2+, no calf tenderness noted. No clubbing or cyanosis.trace+ pedal edema noted NEUROLOGICAL: Focused neurological exam showed no significant neurologic deficit. Normal speech, no focal weakness appreciated. PSYCH: Normal mood, normal affect. Judgment and insight within normal limits. SKIN: No significant ecchymosis, rash, ulcerations or signs of pruritus noted. MUSCULOSKELETAL EXAM: No significant joint swelling noted. Results Laboratory Results: 11/28/17 04:34 11/28/17 04:34 11/27/17 11/28/17 11/28/17 20:13 04:34 04:34 WBC 7.7 RBC 4.65 Hgb 13.9 Hct 41.3 MCV 89 MCH 29.8 MCHC 33.5 RDW 15.3 H Plt Count 235 Seg Neutrophils % 74.2 Lymphocytes % 14.8 Monocytes % 10.7 Eosinophils % 0.1 Basophils % 0.2 Absolute Neutrophils 5.7 Absolute Lymphocytes 1.1 Absolute Monocytes 0.8 Absolute Eosinophils 0.0 Absolute Basophils 0.0 Sodium 141.6 Potassium 4.2 Chloride 99 Carbon Dioxide 29 Anion Gap 14 BUN 30 H Creatinine 0.70 Est GFR ( Amer) > 60 Est GFR (Non-Af Amer) > 60 Glucose 140 H Calcium 9.5 Magnesium 2.2 11/22/17 11/22/17 11/22/17 12:25 12:25 17:25 Creatine Kinase 300 H 268 H CK-MB (CK-2) 4.78 H Troponin I 0.020 NT-Pro-B Natriuret Pep 11/22/17 11/22/17 11/22/17 17:25 23:25 23:25 Creatine Kinase 229 H CK-MB (CK-2) 4.46 3.69 Troponin I 0.020 0.023 NT-Pro-B Natriuret Pep 11/23/17 11/24/17 11/25/17 06:37 06:03 06:04 Creatine Kinase CK-MB (CK-2) Troponin I NT-Pro-B Natriuret Pep 1890 H 1470 H 1600 H Impressions: Chest/Abdomen CTA 11/22/17 09:05 IMPRESSION: No CT angio evidence of acute pulmonary emboli or thoracic aortic dissection. Thickened interlobular septa from mild interstitial edema. 5 mm and 6 mm nodules in the periphery of the right upper lobe, new compared to prior studies. Consider follow-up as per Fleischner recommendations Chest X-Ray 11/24/17 00:00 IMPRESSION: No acute changes. Chronic bronchiectasis and scarring in the right middle lobe and lingula Reticulonodular infiltrates seen by CT chest 11/22/2017 is difficult to appreciate today by plain film Assessment & Plan - Diagnosis (1) Dyspnea Qualifiers: Dyspnea type: dyspnea on exertion Qualified Code(s): R06.09 - Other forms of dyspnea Is this a current diagnosis for this admission?: Yes (2) COPD with acute exacerbation Is this a current diagnosis for this admission?: Yes (3) Congestive heart failure Qualifiers: Heart failure type: diastolic Heart failure chronicity: unspecified Qualified Code(s): I50.30 - Unspecified diastolic (congestive) heart failure Is this a current diagnosis for this admission?: Yes (4) Hypertension Qualifiers: Hypertension type: essential hypertension Qualified Code(s): I10 - Essential (primary) hypertension Is this a current diagnosis for this admission?: Yes (5) Hypertrophic cardiomyopathy Is this a current diagnosis for this admission?: Yes (6) Obesity Qualifiers: Obesity type: unspecified obesity type Body mass index: BMI 33.0-33.9 Is this a current diagnosis for this admission?: Yes (7) LBBB (left bundle branch block) Is this a current diagnosis for this admission?: Yes (8) Chest tightness Is this a current diagnosis for this admission?: Yes (9) Paroxysmal A-fib Is this a current diagnosis for this admission?: Yes - Notes Notes: Patient's overall generally improved. Feel that patient will benefit from electrophysiological evaluation in view of history of myomectomy and also history of hypertrophic cardiomyopathy. Have written orders for patient to be followed up at [facility] EP clinic. Patient will follow up locally with me for sleep related problem and general cardiology issues. Dyspnea: Most likely related to combination of CHF and COPD with exacerbation. Patient currently feeling much better. This responded to both diuresis and treatment of COPD. 2D echo shows normal LVEF, mild LVH, grade 2 diastolic dysfunction. No significant valvular abnormalities were noted. Nuclear stress test negative for any definitive evidence of pharmacologic stress-induced ischemia. Congestive heart failure: BNP is elevated. Patient has abnormal EKG with left bundle branch block pattern. At this point patient will benefit from CHF pathway. Hypertension: Blood pressure goal should be less than 135/85 in patients with CHF. Cardiomyopathy: Presumably hypertrophic cardiomyopathy based on history of surgery. Patient has been told to report any overt syncope, near syncope. Obesity: Patient will benefit from weight loss. Chest Tightness: possible CHF and diastolic dysfuction vs COPD vs angina. Enzymes and ekgs currently negative. Nuclear stress test results reviewed. Nuclear stress test negative for ischemia. Patient could have microvascular disease. In fact microvascular disease is common in patients with hypertrophic cardiomyopathy. Start Ranexa at 500 mg p.o. twice daily and increased to 1000 p.o. twice daily. Also recommend starting patient's home dose of beta-ish rather than atenolol. Please note that during her heart catheterization is 2009 , coronaries were noted to be widely patent. LBBBB : possibly chronic. Paroxysmal atrial fibrillation: Patient converted spontaneously to sinus rhythm. May need to consider chronic anticoagulation if there is recurrence. Sleep disorder: I believe patient has high probability of underlying sleep apnea. It may be worthwhile to consider repeating the sleep study. This will be scheduled as an outpatient. - Time Time with patient: 15-25 minutes - CODE STATUS was discussed, patient remains full code. Surrogate decision-maker unchanged. Multiple medical problems were addressed. More than 50% of the time spent coordinating care, discussing management plans with involved caregivers. Management plans discussed with involved personnels. Medical decision making was of moderate to high complexity , patient's has multiple comorbidities. Medications reviewed and adjusted accordingly: Yes
[2017-11-28] MEDS: GABAPENTIN 300 MG CAPSULE PO SCH (22:21)
[2017-11-29] MEDS: LANSOPRAZOLE 30 MG TAB.RAP.DR PO SCH (05:50)
[2017-11-29 06:14] LABS: ANION GAP 11 (5-19); BLOOD UREA NITROGEN 29 mg/dL (7-20); CALCIUM 9.6 mg/dL (8.4-10.2); CARBON DIOXIDE 30 mmol/L (22-30); CHLORIDE 98 mmol/L (98-107); GLUCOSE 175 mg/dL (75-110); POTASSIUM 4.3 mmol/L (3.6-5.0); SODIUM 139.3 mmol/L (137-145)
[2017-11-29 09:54] VITALS: BP 131/57
[2017-11-29] MEDS: BISOPROLOL 5 MG PO SCH (10:00)
[2017-11-29] MEDS: SPIRONOLACTONE 25 MG TABLET PO SCH (10:01)
[2017-11-29] MEDS: PAROXETINE HCL 20 MG TABLET PO SCH (10:01)
[2017-11-29] MEDS: RANOLAZINE 500 MG TAB.SR.12H PO SCH (10:01)
[2017-11-29] MEDS: SULFASALAZINE 500 MG TABLET.DR PO SCH (10:01)
[2017-11-29] MEDS: PREDNISONE 20 MG TABLET PO SCH (10:02)
[2017-11-29] MEDS: LEVOFLOXACIN 500 MG TABLET PO SCH (10:02)
[2017-11-29] MEDS: FUROSEMIDE 20 MG TABLET PO SCH (10:02)
--- NOTE | 2017-11-29 10:04 | ST Inp Modified Barium Swallow ---
Medical Diagnosis - Medical Diagnoses Medical Diagnosis Description & ICD-10 Code(s): dyspnea ST Inpatient MBS - General Date: 11/29/17 - History History Obtained From: Other - EMR -: Medical - per EMR: asthma Patient admitted on 11/22/17 due to shortness of breath. MBSS ordered due to some complaints of "choking". Nursing reports no overt signs of dysphagia. Patient initially stated that she does not have any difficulty with swallowing. When asked again after the test, she did state that she "chokes sometimes". Medications: Medications Reviewed Allergies: No known allergies - Subjective Current Nutritional Means: PO Current PO Diet: Regular Current Symptoms: other - occasional report of choking. Pain: Patient reports, 0/5 - Objective Assessment: Upright, Left Lateral - Food Trials Food Trials Used: Thin liquids, Pureed, Regular The Patient: Was Able to Self Feed - Assessment Labial Function: Within Normal Limits Lingual Function: Within Normal Limits Mandibular Function: Within Normal Limits Dentition: Full - Pharyngeal Stage Initiation of Pharyngeal Stage: Normal Decreased Laryngeal Elevation: No Reduced Velo-Pharyngeal Closure: no Reduced Pressure Generation: No Reduced Tongue Base Retraction: No Pre-Swallowing Pooling in Valleculae: None Pre-Swallowing Pooling in Pyriforms: None Reduced Thyro-Hyiod Approximation: No Reduced Epiglottic Excursion: No Reduced Pharyngeal Peristalsis: No Post Swallow Residuals in Valleculae: None Post Swallow Residuals in Pyriforms: None - Esophageal Stage Esophageal Stage Comments: Signs of possible small Zenker's diverticulum at approximately C6 resulting in part of bolus being redirected upward toward UES. - Impression/Summary Laryngeal Penetration: No Tracheal Aspiration: no Patient Presents With: Normal swallow at eval Risk of Aspiration: Minimal Risk of Nutritional Compromise: None - Recommendations Solid Diet Recommendations: Regular - discussed with patient being careful with specific textures (seeds, nuts, etc.). 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 All other aspects of swallow WNL. No diet changes recommended, educated patient on condition and recommended to be careful with lindsey texture foods. Hand out given. - Time Total Time: 15 Total Timed Minutes: 15 Charge G Code? - - -: Yes ST Deras Impairment Category - Rationale Based On Rationale Based On: Func. Asses. Tool Results - Swallowing Current G8996: CI 1-19% Impaired Goal G8997: CI 1-19% Impaired Discharge G8998: CI 1-19% Impaired
[2017-11-29] MEDS: ENOXAPARIN SODIUM INJ 40 MG/0.4 ML DISP.SYRIN SUBCUT SCH (10:06)
--- NOTE | 2017-11-29 11:46 | PDOC PROGRESS REPORT ---
Subjective Progress Note for:: 11/29/17 Subjective:: Patient was seen on morning rounds and noted to be doing better having converted back to sinus rhythm yesterday and maintaining sinus rhythm. Patient also clinically improved on Ranexa therapy. Patient is suspected to be discharged. She has a follow-up appointment at [facility] I am told on December 26.. Patient seems to be doing better with gradual improvement. Pt is denying any chest arm or neck discomfort. Patient denying any PND, orthopnea. Patient denied any sustained palpitations, dizziness, syncope, near syncope. Patient denying any fever chills. Patient denying any other significant discomfort. Patient is maintaining sinus rhythm. Review of systems: Rest review of systems negative. Medications: Medications have been reviewed. Reason For Visit: SOB/ACUTE CHF Physical Exam Vital Signs: Temp Pulse Resp BP Pulse Ox 98.4 F 67 16 131/57 H 97 11/29/17 09:51 11/29/17 09:51 11/29/17 09:51 11/29/17 09:51 11/29/17 09:51 Intake & Output 11/28/17 11/29/17 11/30/17 06:59 06:59 06:59 Intake Total 58 1120 Output Total 0 Balance 58 1120 Weight 77.5 kg 78.063 kg Exam: GENERAL: well-nourished and in no acute distress. Alert and oriented x3 HEAD: Atraumatic, normocephalic. EYES: Pupils equal round and reactive to light, extraocular movements intact, sclera anicteric, conjunctiva are normal. ENT: TMs normal, nares patent, oropharynx clear without exudates. Moist mucous membranes. No oral ulcerations or bleeding gums noted NECK: supple without lymphadenopathy. Trachea is central. No cervical or axillary lymphadenopathy noted. Carotids are 2+, JVD WNL LUNGS: Respiration seems nonlabored, no significant accessory muscle action noted. Breath sounds clear to auscultation bilaterally and equal noted. No wheezes rales or rhonchi noted. No significant dullness noted on percussion. CHEST: Palpation of the chest wall shows no significant chest wall tenderness. No other significant abnormalities noted. 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 ABDOMEN: Soft, no significant tenderness appreciated, normoactive bowel sounds. No guarding, no rebound. No rigidity noted . No masses appreciated. EXTREMITIES: Pedal pulses are 1-2+, no calf tenderness noted. No clubbing or cyanosis.trace to 1+ pedal edema noted NEUROLOGICAL: Focused neurological exam showed no significant neurologic deficit. Normal speech, no focal weakness appreciated. PSYCH: Normal mood, normal affect. Judgment and insight within normal limits. SKIN: No significant ecchymosis, rash, ulcerations or signs of pruritus noted. MUSCULOSKELETAL EXAM: No significant joint swelling noted. Results Laboratory Results: 11/28/17 04:34 11/29/17 04:59 11/29/17 04:59 Sodium 139.3 Potassium 4.3 Chloride 98 Carbon Dioxide 30 Anion Gap 11 BUN 29 H Creatinine 0.76 Est GFR ( Amer) > 60 Est GFR (Non-Af Amer) > 60 Glucose 175 H Calcium 9.6 11/22/17 11/22/17 11/22/17 12:25 12:25 17:25 Creatine Kinase 300 H 268 H CK-MB (CK-2) 4.78 H Troponin I 0.020 NT-Pro-B Natriuret Pep 11/22/17 11/22/17 11/22/17 17:25 23:25 23:25 Creatine Kinase 229 H CK-MB (CK-2) 4.46 3.69 Troponin I 0.020 0.023 NT-Pro-B Natriuret Pep 11/23/17 11/24/17 11/25/17 06:37 06:03 06:04 Creatine Kinase CK-MB (CK-2) Troponin I NT-Pro-B Natriuret Pep 1890 H 1470 H 1600 H EKG Comments: Telemetry shows sinus rhythm without any sustained tacky or bradycardia arrhythmias. Impressions: Chest/Abdomen CTA 11/22/17 09:05 IMPRESSION: No CT angio evidence of acute pulmonary emboli or thoracic aortic dissection. Thickened interlobular septa from mild interstitial edema. 5 mm and 6 mm nodules in the periphery of the right upper lobe, new compared to prior studies. Consider follow-up as per Fleischner recommendations Chest X-Ray 11/24/17 00:00 IMPRESSION: No acute changes. Chronic bronchiectasis and scarring in the right middle lobe and lingula Reticulonodular infiltrates seen by CT chest 11/22/2017 is difficult to appreciate today by plain film Assessment & Plan - Diagnosis (1) Dyspnea Qualifiers: Dyspnea type: dyspnea on exertion Qualified Code(s): R06.09 - Other forms of dyspnea Is this a current diagnosis for this admission?: Yes (2) COPD with acute exacerbation Is this a current diagnosis for this admission?: Yes (3) Congestive heart failure Qualifiers: Heart failure type: diastolic Heart failure chronicity: unspecified Qualified Code(s): I50.30 - Unspecified diastolic (congestive) heart failure Is this a current diagnosis for this admission?: Yes (4) Hypertension Qualifiers: Hypertension type: essential hypertension Qualified Code(s): I10 - Essential (primary) hypertension Is this a current diagnosis for this admission?: Yes (5) Hypertrophic cardiomyopathy Is this a current diagnosis for this admission?: Yes (6) Obesity Qualifiers: Obesity type: unspecified obesity type Body mass index: BMI 33.0-33.9 Is this a current diagnosis for this admission?: Yes (7) LBBB (left bundle branch block) Is this a current diagnosis for this admission?: Yes (8) Chest tightness Is this a current diagnosis for this admission?: Yes (9) Paroxysmal A-fib Is this a current diagnosis for this admission?: Yes - Notes Notes: Patient already has follow-up appointment with supervisor pumping station at [facility]. Informed that she could restart bisoprolol at home dose. Hypertrophic cardiomyopathy. Currently is stable. Patient will follow up locally with me for sleep related problem and general cardiology issues. Dyspnea: Most likely related to combination of CHF and COPD with exacerbation. Patient currently feeling much better. This responded to both diuresis and treatment of COPD. 2D echo shows normal LVEF, mild LVH, grade 2 diastolic dysfunction. No significant valvular abnormalities were noted. Nuclear stress test negative for any definitive evidence of pharmacologic stress-induced ischemia. Congestive heart failure: BNP is elevated. Patient has abnormal EKG with left bundle branch block pattern. At this point patient will benefit from CHF pathway. Hypertension: Blood pressure goal should be less than 135/85 in patients with CHF. Cardiomyopathy: Presumably hypertrophic cardiomyopathy based on history of surgery. Patient has been told to report any overt syncope, near syncope. Obesity: Patient will benefit from weight loss. Chest Tightness: possible CHF and diastolic dysfuction vs COPD vs angina. Enzymes and ekgs currently negative. Nuclear stress test results reviewed. Nuclear stress test negative for ischemia. Patient could have microvascular disease. In fact microvascular disease is common in patients with hypertrophic cardiomyopathy. Start Ranexa at 500 mg p.o. twice daily and increased to 1000 p.o. twice daily. Also recommend starting patient's home dose of beta-ish rather than atenolol. Please note that during her heart catheterization is 2009 , coronaries were noted to be widely patent. LBBBB : possibly chronic. Paroxysmal atrial fibrillation: Possible need for chronic anticoagulation to be evaluated as an outpatient. Sleep disorder: I believe patient has high probability of underlying sleep apnea. It may be worthwhile to consider repeating the sleep study. This will be scheduled as an outpatient. - Time Time with patient: Greater than 35 minutes - CODE STATUS was discussed, patient remains full code. Surrogate decision-maker unchanged. Multiple medical problems were addressed. More than 50% of the time spent coordinating care, discussing management plans with involved caregivers. Management plans discussed with involved personnels. Medical decision making was of moderate to high complexity, patient's has multiple comorbidities. Medications reviewed and adjusted accordingly: Yes
--- NOTE | 2017-11-29 13:13 | RADIOLOGY REPORT (SQ) ---
EXAM DESCRIPTION: BETTIE SWALLOW COMPLETED DATE/TIME: 11/29/2017 8:18 am REASON FOR STUDY: chocking COMPARISON: None. TECHNIQUE: Videofluoroscopic swallowing examination was performed in conjunction with speech patholo gy. Videofluoroscopic imaging was obtained and reviewed and these are the findings: RADIATION DOSE: 1 minute 20 seconds of fluoroscopy was used. 1 images saved to PACS. LIMITATIONS: None FINDINGS: The patient was brought into the fluoro room and placed upright on a modified barium swall ow chair. The patient was then given multiple consistencies mixed with barium to swallow under live fluoroscopic video guidance. According to the Speech Pathologist there was no penetration or aspirat ion. Cricopharyngeal hypertrophy causing narrowing of th proximal esophagus. IMPRESSION: NO EVIDENCE OF PENETRATION OR ASPIRATION.PLEASE SEE SPEECH PATHOLOGIST REPORT FOR OTHER FINDINGS AND RECOMMENDATIONS. COMMENT: Quality ID [id number]: Final reports for procedures using fluoroscopy that document radiation exp osure indices, or exposure time and number of fluorographic images (if radiation exposure indices are not available) TECHNICAL DOCUMENTATION: JOB ID: [id number] [employer]- All Rights Reserved Reading location - IP/workstation name: [email or web address]
--- NOTE | 2017-11-29 17:34 | PDOC DISCHARGE SUMMARY ---
General - Admit/Disc Date/PCP Admission Date/Primary Care Provider: 11/22/17 10:16 RISHABH REYES MD Discharge Date: 11/29/17 - Discharge Diagnosis (1) Shortness of breath Is this a current diagnosis for this admission?: Yes Summary: Most likely related to the restrictive lung disease with some congestive heart failure currently get better (2) Congestive heart failure Is this a current diagnosis for this admission?: Yes Summary: Currently follow with the Dr. Agustin most likely diastolic dysfunctions (3) COPD with acute exacerbation Is this a current diagnosis for this admission?: Yes Summary: Patient have a mostly a restrictive lung disease not the COPDFollow with the pulmonary as outpatients discussed with the patient and the daughter (4) Hypertension Is this a current diagnosis for this admission?: Yes Summary: Continues to medication as prescribed (5) Rheumatoid arthritis Is this a current diagnosis for this admission?: Yes Summary: Patient's currently follow with the outpatients rheumatology (6) Hypertrophic cardiomyopathy Is this a current diagnosis for this admission?: Yes Summary: Patient scheduled to see [facility] for further evaluations (7) Restrictive lung disease Is this a current diagnosis for this admission?: Yes Summary: Most likely due to rheumatoid disease with the history of the methotrexate side effect - Additional Information Resuscitation Status: Full Code Discharge Diet: Cardiac Discharge Activity: Activity As Tolerated, Balance Activity w/Rest, Weigh Daily Prescriptions: Cephalexin Monohydrate [Keflex 500 mg Capsule] 500 mg PO TID #21 capsule Furosemide [Lasix 20 mg Tablet] 20 mg PO DAILY #30 tablet Ipratropium/Albuterol Sulfate [Duoneb 3 ml Ampul] 3 ml NEB RTQ6HP PRN #120 vial.neb PRN Reason: Prednisone [Deltasone 20 mg Tablet] 20 mg PO DAILY #10 tablet Ranolazine [Ranexa 500 mg Tab.sr] 1,000 mg PO Q12 #60 tab.sr.12h Spironolactone [Aldactone 25 mg Tablet] 25 mg PO DAILY #30 tablet Home Medications: Adapalene [Differin] 45 gm TP ASDIR PRN 11/22/17 Bisoprolol Fumarate [Zebeta 5 mg Tablet] 1 tab PO DAILY 11/22/17 Gabapentin [Neurontin 300 mg Capsule] 300 mg PO QHS 11/22/17 Metronidazole [Metrogel] 60 gm TP ASDIR PRN 11/22/17 Pantoprazole Sodium [Protonix] 40 mg PO DAILY 11/22/17 Paroxetine HCl [Paxil] 40 mg PO DAILY 11/22/17 Sulfasalazine [Azulfidine] 500 mg PO BID 11/22/17 Aspirin [Ecotrin 81 mg EC Tablet] 81 mg PO DAILY 11/23/17 Bisoprolol Fumarate [Zebeta 5 mg Tablet] 1 tab PO DAILY 11/23/17 Ranolazine [Ranexa] 1,000 mg PO DAILY 11/23/17 Cephalexin Monohydrate [Keflex 500 mg Capsule] 500 mg PO TID #21 capsule Furosemide [Lasix 20 mg Tablet] 20 mg PO DAILY #30 tablet 11/29/17 Ipratropium/Albuterol Sulfate [Duoneb 3 ml Ampul] 3 ml NEB RTQ6HP PRN #120 vial.neb 11/29/17 Prednisone [Deltasone 20 mg Tablet] 20 mg PO DAILY #10 tablet 11/29/17 Ranolazine [Ranexa 500 mg Tab.sr] 1,000 mg PO Q12 #60 tab.sr.12h 11/29/17 Spironolactone [Aldactone 25 mg Tablet] 25 mg PO DAILY #30 tablet 11/29/17 History of Present Illness History of Present Illness: RACHEAL ALBA is a 66 year old female Presents to the ED with increasing shortness of breath over the last several days. History of asthma in the past as well as history of smoking in the past she has a cough is dry nonproductive she denies hemoptysis her PPD was negative dates unknown is no history of chronic lung disease as a child or adolescent she denies exposure to passive smoke as a child but admits to exposure to smoke passive smoke as an adult as well as the fact that she herself smoked. 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 She admits to tightness in her chest usually occurs with rest and decreases somewhat with movement she sleeps on one pillow occasional PND no nocturnal cough no edema. 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 the lungIn patients was referred at the pulmonary as outpatient seen the and also patient was methotrexate was stopped by the boner meat and currently taking the newer medications Patient also have a heart muscle surgery done the [facility] due to the cardiomyopathy currently see the cardiology at [facility] and was all okay according to the patient When I saw the patient in the ER patient was comfortably lying in the bed no chest pain no shortness of the breath but feeling some tightness in the chest and a CT angiogram was ordered because of the patient was short of breath but move around was negative for any pulmonary embolism Hospital Course Hospital Course: This is a 66-year-old female basically a presents in the emergency department with a complaint of shortness of the breath and patients initially diagnosed with congestive heart failure's with possible underlying COPDPatient admitted in the hospital for further evaluation and treatment Patient seen by the cardiology underwent for the echocardiogram and Cardiolite stress test was all stable Also seen by Dr. Whitaker underwent for pulmonary functions test we suggest most likely restrictive this is not the obstructive disease and most likely related to the patient's rheumatoid arthritis and the possible methotrexate side effect Patient have some mild bronchitis with some questionable infections was treated with the antibiotic Patient was put on the Lasix and Ranexa Patient was also underwent for the paroxysmal A. fib which treated with the beta -ish Patient also have a cardiomyopathic surgery and the Patel in the past and the Dr. Agustin suggest to follow the patient's Patel and have appointment to see next week for further evaluations Patient had rather extensive workup done and all discussed with the patient and the daughter and the bedside and discussed with the patient about follow Discussed with the cardiology and pulmonary and suggest the patient should be discharge with the above medications and follow-up outpatients Physical Exam Vital Signs: Temp Pulse Resp BP Pulse Ox 98.4 F 67 16 131/57 H 97 11/29/17 09:51 11/29/17 09:51 11/29/17 09:51 11/29/17 09:51 11/29/17 09:51 Intake & Output 11/28/17 11/29/17 11/30/17 06:59 06:59 06:59 Intake Total 58 1120 Output Total 0 Balance 58 1120 Weight 77.5 kg 78.063 kg General appearance: PRESENT: no acute distress, well-developed, well-nourished Head exam: PRESENT: atraumatic, normocephalic Eye exam: PRESENT: conjunctiva pink, EOMI, PERRLA. ABSENT: scleral icterus Ear exam: PRESENT: normal external ear exam Mouth exam: PRESENT: moist, tongue midline Neck exam: PRESENT: full ROM. ABSENT: carotid bruit, JVD, lymphadenopathy, thyromegaly Respiratory exam: PRESENT: clear to auscultation lauren Cardiovascular exam: PRESENT: RRR. ABSENT: diastolic murmur, rubs, systolic murmur Pulses: PRESENT: normal dorsalis pedis pul, +2 pedal pulses bilateral Vascular exam: PRESENT: normal capillary refill GI/Abdominal exam: PRESENT: normal bowel sounds, soft. ABSENT: distended, guarding, mass, organolmegaly, rebound, tenderness Rectal exam: PRESENT: deferred Extremities exam: ABSENT: pedal edema Musculoskeletal exam: PRESENT: ambulatory Neurological exam: PRESENT: alert, awake, oriented to person, oriented to place , oriented to time, oriented to situation, CN II-XII grossly intact. ABSENT: motor sensory deficit Psychiatric exam: PRESENT: appropriate affect, normal mood. ABSENT: homicidal ideation, suicidal ideation Skin exam: PRESENT: dry, intact, warm. ABSENT: cyanosis, rash Results Laboratory Results: 11/28/17 04:34 11/29/17 04:59 11/29/17 04:59 Sodium 139.3 Potassium 4.3 Chloride 98 Carbon Dioxide 30 Anion Gap 11 BUN 29 H Creatinine 0.76 Est GFR ( Amer) > 60 Est GFR (Non-Af Amer) > 60 Glucose 175 H Calcium 9.6 11/22/17 11/22/17 11/22/17 12:25 12:25 17:25 Creatine Kinase 300 H 268 H CK-MB (CK-2) 4.78 H Troponin I 0.020 NT-Pro-B Natriuret Pep 11/22/17 11/22/17 11/22/17 17:25 23:25 23:25 Creatine Kinase 229 H CK-MB (CK-2) 4.46 3.69 Troponin I 0.020 0.023 NT-Pro-B Natriuret Pep 11/23/17 11/24/17 11/25/17 06:37 06:03 06:04 Creatine Kinase CK-MB (CK-2) Troponin I NT-Pro-B Natriuret Pep 1890 H 1470 H 1600 H Impressions: Chest/Abdomen CTA 11/22/17 09:05 IMPRESSION: No CT angio evidence of acute pulmonary emboli or thoracic aortic dissection. Thickened interlobular septa from mild interstitial edema. 5 mm and 6 mm nodules in the periphery of the right upper lobe, new compared to prior studies. Consider follow-up as per Fleischner recommendations Chest X-Ray 11/24/17 00:00 IMPRESSION: No acute changes. Chronic bronchiectasis and scarring in the right middle lobe and lingula Reticulonodular infiltrates seen by CT chest 11/22/2017 is difficult to appreciate today by plain film Modified Barium Swallow 11/29/17 00:00 IMPRESSION: NO EVIDENCE OF PENETRATION OR ASPIRATION.PLEASE SEE SPEECH PATHOLOGIST REPORT FOR OTHER FINDINGS AND RECOMMENDATIONS. Qualifiers - * PATEINT BEING DISCHARGED WITH ANY OF THE FOLLOWING DIAGNOSIS?: No VTE patient discharged on overlapping Therapy?: Yes Plan Time Spent: Greater than 30 Minutes - Discussed with the patient and daughter following a one-week in office follow with the outpatients [facility] and pulmonary
== END 2017-11-29 10:52 | disposition home or self-care (01) | DRG 292 ==
LOC: ER 04:44 → EH 10:16 → 3S 11-23 03:18
PROVIDERS: ADMIT Family Medicine; ATTEND Family Medicine
PROC: 3E0F73Z Introduction of Anti-inflammatory into Respiratory Tract, Via Natural or Artificial Opening (ICD-10-PCS; principal; 2017-11-23)
PROC: 3E0234Z Introduction of Serum, Toxoid and Vaccine into Muscle, Percutaneous Approach (ICD-10-PCS; 2017-11-29)
DX: I11.0 Hypertensive heart disease with heart failure (principal); J44.1 Chronic obstructive pulmonary disease with (acute) exacerbation; M06.9 Rheumatoid arthritis, unspecified; I42.2 Other hypertrophic cardiomyopathy; J98.4 Other disorders of lung; I48.0 Paroxysmal atrial fibrillation; E78.00 Pure hypercholesterolemia, unspecified; I44.7 Left bundle-branch block, unspecified; I50.30 Unspecified diastolic (congestive) heart failure; E66.9 Obesity, unspecified; Z68.33 Body mass index [BMI] 33.0-33.9, adult; Z79.899 Other long term (current) drug therapy; Z60.2 Problems related to living alone; Z87.891 Personal history of nicotine dependence; Z95.1 Presence of aortocoronary bypass graft; Z83.6 Family history of other diseases of the respiratory system; Z23 Encounter for immunization
CPT/HCPCS: 36415; 71046; 71275; 74230; 78452; 80048; 80053; 81001; 82550; 82553; 83735; 83880; 84484; 85025; 85610; 85730; 87040; 87086; 90686; 93005; 93010; 93017; 93306; 94010; 94640; 94761; 96374; 99285; A9500; G8996-GN; G8997-GN; G8998-GN; J0280; J0696; J1650; J1940; J2785; J2920; J3490; J7512; J7620; Q9969

== ENCOUNTER → 2017-12-07 | Outpatient (CLI) | payer MEDICARE, OTHER ==
[2017-12-07 15:52] LABS: ANION GAP 12 (5-19); BLOOD UREA NITROGEN 33 mg/dL (7-20); CALCIUM 10.2 mg/dL (8.4-10.2); CARBON DIOXIDE 31 mmol/L (22-30); CHLORIDE 95 mmol/L (98-107); GLUCOSE 209 mg/dL (75-110); POTASSIUM 5.6 mmol/L (3.6-5.0); SODIUM 138.1 mmol/L (137-145)
--- NOTE | 2017-12-07 16:32 | RADIOLOGY REPORT (SQ) ---
EXAM DESCRIPTION: CHEST PA/LATERAL COMPLETED DATE/TIME: 12/07/2017 3:55 pm REASON FOR STUDY: CHEST PAIN COMPARISON: 11/24/2017. EXAM PARAMETERS: NUMBER OF VIEWS: two views TECHNIQUE: Digital Frontal and Lateral radiographic views of the chest acquired. RADIATION DOSE: NA LIMITATIONS: none FINDINGS: LUNGS AND PLEURA: Stable chronic changes. No infiltrates, masses or pneumothorax. No pleu ral effusion. MEDIASTINUM AND HILAR STRUCTURES: No masses or contour abnormalities. HEART AND VASCULAR STRUCTURES: Heart normal size. No evidence for failure. BONES: No acute findings. HARDWARE: Sternotomy wires. OTHER: No other significant finding. IMPRESSION: NO SIGNIFICANT RADIOGRAPHIC FINDING IN THE CHEST. TECHNICAL DOCUMENTATION: JOB ID: [id number] [employer]- All Rights Reserved Reading location - IP/workstation name: [email or web address]
== END ==
LOC: OD 14:41
PROVIDERS: ATTEND Physician Assistant
DX: E87.5 Hyperkalemia (principal)
CPT/HCPCS: 36415; 71046; 80048

== ENCOUNTER → 2017-12-11 | Outpatient (CLI) | payer MEDICARE, OTHER ==
[2017-12-11 17:24] LABS: ANION GAP 7 (5-19); BLOOD UREA NITROGEN 23 mg/dL (7-20); CALCIUM 9.4 mg/dL (8.4-10.2); CARBON DIOXIDE 31 mmol/L (22-30); CHLORIDE 103 mmol/L (98-107); GLUCOSE 133 mg/dL (75-110); SODIUM 140.7 mmol/L (137-145)
== END ==
LOC: OD 16:05
PROVIDERS: ATTEND Physician Assistant
DX: E87.5 Hyperkalemia (principal)
CPT/HCPCS: 36415; 80048

== ENCOUNTER → 2018-01-17 | Outpatient (CLI) | payer MEDICARE, OTHER ==
--- NOTE | 2018-01-17 17:42 | RADIOLOGY REPORT (SQ) ---
EXAM DESCRIPTION: SHOULDER LEFT 2 OR MORE VIEWS COMPLETED DATE/TIME: 01/17/2018 5:33 pm REASON FOR STUDY: PAIN IN LEFT SHOULDER COMPARISON: None. NUMBER OF VIEWS: Three views. TECHNIQUE: Internal rotation, external rotation, and Y view images acquired of the left shoulder. LIMITATIONS: None. FINDINGS: MINERALIZATION: Normal. BONES: No acute fracture or dislocation. No worrisome bone lesions. JOINTS: No dislocation. VISUALIZED LUNGS AND RIBS: No pneumothorax. No rib fracture. SOFT TISSUES: No radiopaque foreign body. OTHER: No other significant finding. IMPRESSION: NEGATIVE STUDY OF THE LEFT SHOULDER. NO RADIOGRAPHIC EVIDENCE OF ACUTE INJURY. TECHNICAL DOCUMENTATION: JOB ID: [id number] [employer]- All Rights Reserved Reading location - IP/workstation name: [email or web address]
== END ==
LOC: RAD 17:11
PROVIDERS: ATTEND Family Medicine
DX: M25.512 Pain in left shoulder (principal)

== ENCOUNTER 2018-03-14 15:01 | Emergency (ER) | payer MEDICARE, OTHER ==
[2018-03-14 15:22] VITALS: BP 122/58
[2018-03-14] MEDS ORDERED: ACETAMINOPHEN 325 MG TABLET PO ONE (16:05)
--- NOTE | 2018-03-14 16:48 | RADIOLOGY REPORT (SQ) ---
EXAM DESCRIPTION: HAND RIGHT 3 VIEWS COMPLETED DATE/TIME: 03/14/2018 4:36 pm REASON FOR STUDY: fall last night COMPARISON: None. EXAM PARAMETERS: NUMBER OF VIEWS: Three views. TECHNIQUE: AP, lateral and oblique radiographic images acquired of the right hand. LIMITATIONS: None. FINDINGS: MINERALIZATION: Normal. BONES: No acute fracture or dislocation. No worrisome bone lesions. JOINTS: No effusions. SOFT TISSUES: No soft tissue swelling. No foreign body. OTHER: No other significant finding. IMPRESSION: NEGATIVE STUDY OF THE RIGHT HAND. NO RADIOGRAPHIC EVIDENCE OF ACUTE INJURY. TECHNICAL DOCUMENTATION: JOB ID: [id number] [employer]- All Rights Reserved Reading location - IP/workstation name: [email or web address]
--- NOTE | 2018-03-14 16:50 | RADIOLOGY REPORT (SQ) ---
EXAM DESCRIPTION: WRIST RIGHT 3 VIEWS COMPLETED DATE/TIME: 03/14/2018 4:36 pm REASON FOR STUDY: fall last night COMPARISON: None. NUMBER OF VIEWS: Three views. TECHNIQUE: AP, lateral, and oblique radiographic images acquired of the right wrist. LIMITATIONS: None. FINDINGS: MINERALIZATION: Normal. BONES: No acute fracture or dislocation. No worrisome bone lesions. Normal alignment. SOFT TISSUES: No soft tissue swelling. No foreign body. OTHER: No other significant finding. IMPRESSION: NEGATIVE STUDY OF THE RIGHT WRIST. NO RADIOGRAPHIC EVIDENCE OF ACUTE INJURY. TECHNICAL DOCUMENTATION: JOB ID: [id number] [employer]- All Rights Reserved Reading location - IP/workstation name: [email or web address]
--- NOTE | 2018-03-14 17:42 | ER Document Report ---
ED Hand/Wrist Injury - General Chief Complaint: Wrist Injury Stated Complaint: RIGHT WRIST PAIN Time Seen by Provider: 03/14/18 15:39 Mode of Arrival: Ambulatory Information source: Patient Notes: 67-year-old female presents to ED for complaint of right wrist pain. She states she slipped and fell catching herself on her hand because of pain and injury to her right wrist. She states she took the Gary last night because she has rheumatoid arthritis and has those for pain. She states she does want to know if it was broken or not. TRAVEL OUTSIDE OF THE [place] IN LAST 30 DAYS: No - HPI Injury to: Hand, Wrist Onset: Yesterday Where: Home, Indoors Timing: Still present Quality of pain: Sharp, Throbbing Severity: Moderate Pain Level: 4 Context: Fall - Related Data Allergies/Adverse Reactions: No Known Allergies Allergy (Verified 03/14/18 15:02) Past Medical History - Social History Smoking Status: Former Smoker Cigarette use (# per day): No Chew tobacco use (# tins/day): No Smoking Education Provided: No Frequency of alcohol use: Occasional Drug Abuse: None Lives with: Family Family History: COPD Patient has suicidal ideation: No Patient has homicidal ideation: No - Past Medical History Cardiac Medical History: Reports: Hx Congestive Heart Failure, Hx Hypercholesterolemia Pulmonary Medical History: Reports: Hx Bronchitis, Hx COPD, Hx Pneumonia EENT Medical History: Reports: None Neurological Medical History: Reports: None Endocrine Medical History: Reports: None Renal/ Medical History: Reports: None Malignancy Medical History: Reports: None GI Medical History: Reports: Hx Colonoscopy, Hx Endoscopy Musculoskeltal Medical History: Reports Hx Arthritis - RA Skin Medical History: Reports None Psychiatric Medical History: Reports: None Traumatic Medical History: Reports: None Infectious Medical History: Reports: None Past Surgical History: Reports: Hx Cardiac Surgery, Hx Open Heart Surgery - CABG , Other - Cardiac heart muscle surgery. Patient describes history of myomectomy. - Immunizations Hx Diphtheria, Pertussis, Tetanus Vaccination: Yes Hx Pneumococcal Vaccination: 08/02/14 Review of Systems - Review of Systems Constitutional: No symptoms reported EENT: No symptoms reported Cardiovascular: No symptoms reported Respiratory: No symptoms reported Gastrointestinal: No symptoms reported Genitourinary: No symptoms reported Female Genitourinary: No symptoms reported Musculoskeletal: Joint pain - right wrist, Joint swelling - Right wrist Skin: No symptoms reported Hematologic/Lymphatic: No symptoms reported Neurological/Psychological: No symptoms reported -: Yes All other systems reviewed and negative Physical Exam - Vital signs Vitals: Temp Pulse Resp BP Pulse Ox 98.9 F 59 L 20 122/58 L 95 03/14/18 15:20 03/14/18 15:20 03/14/18 15:20 03/14/18 15:20 03/14/18 15:20 Interpretation: Normal - General General appearance: Appears well, Alert - HEENT Head: Normocephalic, Atraumatic Eyes: Normal Pupils: PERRL - Respiratory Respiratory status: No respiratory distress Chest status: Nontender Breath sounds: Normal Chest palpation: Normal - Cardiovascular Rhythm: Regular Heart sounds: Normal auscultation Murmur: No - Abdominal Inspection: Normal Distension: No distension Bowel sounds: Normal Tenderness: Nontender Organomegaly: No organomegaly - Back Back: Normal, Nontender - Extremities General upper extremity: Normal color, Normal temperature General lower extremity: Normal inspection, Nontender, Normal color, Normal ROM , Normal temperature, Normal weight bearing. No: Estrellita's sign Wrist: Tender, Ecchymosis, Limited ROM. No: Abrasion, Axial load of thumb pain , Deformity, Dislocation, Instability, Laceration, Navicular tenderness Hand: Tender, Ecchymosis, No evidence of human bite, No evidence of FB, Swelling - Neurological Neuro grossly intact: Yes Cognition: Normal Orientation: AAOx4 Christopher Coma Scale Eye Opening: Spontaneous Christopher Coma Scale Verbal: Oriented [place] Coma Scale Motor: Obeys Commands [place] Coma Scale Total: 15 Speech: Normal Motor strength normal: LUE, RUE, LLE, RLE Sensory: Normal - Psychological Associated symptoms: Normal affect, Normal mood - Skin Skin Temperature: Warm Skin Moisture: Dry Skin Color: Normal Course - Re-evaluation Re-evalutation: 03/14/18 18:38 Discussed x-rays with patient and family. No acute injuries noted on x-rays. Patient was treated with cock-up splint for the pain in her wrist. Patient to follow-up with primary doctor and orthopedics. Patient verbalized understanding of instructions as well as instructions to elevate and ice wrist until she follows up with orthopedics. The patient is nontoxic appearing with stable vitals. They are afebrile. Wrist exam shows no deformities with no obvious ligament instability. There is a normal pulse and sensation distally. There is no redness or signs of infection. X-rays show no acute fracture per the radiologist. Patient will be placed in an cock-up splint for comfort. Patient will be instructed to follow-up with not better in 1 week, sooner for increasing pain, fever, redness, numbness, tingling, weakness, any further concerns. Patient will be instructed to rest, ice, elevate their wrist and ankle. - Vital Signs Vital signs: Temp Pulse Resp BP Pulse Ox 98.9 F 59 L 20 122/58 L 95 03/14/18 15:20 03/14/18 15:20 03/14/18 15:20 03/14/18 15:20 03/14/18 15:20 - Diagnostic Test Radiology reviewed: Image reviewed, Reports reviewed Discharge - Discharge Clinical Impression: Wrist sprain Qualifiers: Encounter type: initial encounter Laterality: right Qualified Code(s): S63.501A - Unspecified sprain of right wrist, initial encounter Condition: Stable Disposition: HOME, SELF-CARE Additional Instructions: SPRAIN: Your injury is a sprain. A sprain results from stretching or tearing of the ligaments, usually from a twisting injury. The ligaments will require time and protection in order to heal properly. Many sprains are quite disabling and should be taken seriously. The usual initial treatment of sprains is cold packs, elevation, and rest of the injured area. Your physician has assessed the seriousness of your ligament injury, and has outlined a treatment plan. Understand that this treatment may change, depending on how you progress. If a re-examination was recommended, it is important that you follow up as instructed. Call the doctor any time if there is severe pain, numbness, or loss of function in the injured area. SPLINT PRECAUTIONS: A splint has been placed. This will protect the area while healing begins. Your problem does NOT normally require a cast. It MUST, however, be held still! Keep the splint on ALL THE TIME until instructed to remove it by the doctor. As you begin to use the area, be careful. You shouldn't do anything which causes discomfort -- you may disturb the injury even with the splint in place. After the initial period of rest and elevation, if splint does not prevent pain when you move, come back. You may require placement of a different splint , or a cast. If there is unexpected severe pain, or numbness, discoloration, or swelling beyond the splint, you should return at once. If you feel that the splint has broken or become loose, come back. ICE & ELEVATION: Apply ice packs frequently against the painful area. Many different schedules are recommended, such as "20 minutes on, 20 minutes off" or "one hour ice, two hours rest." If you need to work, you may need to go longer between ice treatments. You should plan to have the area ice packed AT LEAST one- fourth of the time. The ice should be applied over the wrap, tape, or splint, or over a layer of cloth -- not directly against the skin. Some ice bags have a built-in cloth and can be put directly on the skin. Your injured part should be elevated as much as possible over the next 48 hours. Try to keep the injury above the level of the heart. Avoid use of the injured area. Elevation and rest will decrease the swelling. USE OF [id number] IBUPROFEN: Ibuprofen (Advil, Nuprin, Medipren, Motrin IB) is a medication for fever and pain control. In addition, it has anti- inflammatory effects which may be beneficial, especially in the treatment of injuries. It's best to take ibuprofen with food. Persons with ulcer disease or allergy to aspirin should notify their physician of this before taking ibuprofen. Ibuprofen can be given every four to six hours, for a total of four doses daily. Age Pain or fever dose Antiinflammatory dose 6-8 yr 200 mg (1 tab) 200 mg (1 tab) 9-11 yr 200 mg (1 tab) 200-400 mg (1-2 tab) 11-14 yr 200-400 mg (1-2 tab) 400 mg (2 tab) 15-adult 400 mg (2 tab) 600 mg (3 tab) FOLLOW-UP CARE: If you have been referred to a physician for follow-up care, call the physician s office for an appointment as you were instructed or within the next two days. If you experience worsening or a significant change in your symptoms, notify the physician immediately or return to the Emergency Department at any time for re-evaluation. Referrals: RISHABH REYES MD [Primary Care Provider] - Follow up as needed MARCO ANTONIO MONK MD [ACTIVE STAFF] - Follow up as needed
== END 2018-03-14 17:50 | disposition home or self-care (01) ==
LOC: ER 15:01
DX: S63.501A Unspecified sprain of right wrist, initial encounter (principal); M25.531 Pain in right wrist; M25.431 Effusion, right wrist; W01.0XXA Fall on same level from slipping, tripping and stumbling without subsequent striking against object, initial encounter; Z87.891 Personal history of nicotine dependence; J44.9 Chronic obstructive pulmonary disease, unspecified
CPT/HCPCS: 99283; 73130; 73110; L3908; A9270

== ENCOUNTER → 2018-03-28 | Outpatient (CLI) | payer MEDICARE, OTHER ==
--- NOTE | 2018-03-28 11:54 | RADIOLOGY REPORT (SQ) ---
EXAM DESCRIPTION: CHEST PA/LATERAL COMPLETED DATE/TIME: 03/28/2018 11:36 am REASON FOR STUDY: SHORTNESS OF BREATH COMPARISON: 12/17/2017 EXAM PARAMETERS: NUMBER OF VIEWS: two views TECHNIQUE: Digital Frontal and Lateral radiographic views of the chest acquired. RADIATION DOSE: NA LIMITATIONS: none FINDINGS: LUNGS AND PLEURA: Chronic scarring in the left mid lung and right base. Mild increased in terstitial densities with worsening abnormal air space density in the right base probably representin g asymmetric pulmonary edema although pneumonia must also be considered. Little if any effusion. MEDIASTINUM AND HILAR STRUCTURES: Mild cardiomegaly and mild vascular congestion. HEART AND VASCULAR STRUCTURES: Heart normal size. No evidence for failure. BONES: No acute findings. HARDWARE: Status post midline sternotomy. OTHER: No other significant finding. IMPRESSION: Worsening right basilar density probably asymmetric pulmonary edema and congestive failu re although pneumonia must also be considered. TECHNICAL DOCUMENTATION: JOB ID: [id number] [employer]- All Rights Reserved Reading location - IP/workstation name: [email or web address]
== END ==
LOC: RAD 11:23
PROVIDERS: ATTEND Physician Assistant
DX: R06.02 Shortness of breath (principal)
CPT/HCPCS: 71046

== ENCOUNTER 2018-09-11 10:30 | Day surgery (SDC) | payer MEDICARE, OTHER ==
[~2018-09-11 10:30] MED LIST: BALANCED SALT IRRIG SOLN COMB2 15 ML BOTTLE ONE; BUPIVACAINE HCL 0.75% INJ/PF (7.5 MG/1 ML) 10 ML SDV ONE; CHONDR SU A NA/HYALUR INTRAOC KIT (SURGICARE) ONE; EPINEPHRINE INJ/PF 1 MG/1 ML AMPULE ONE; LIDOCAINE 1% INJ-PF (10 MG/ML) 30 ML SDV ONE; LIDOCAINE 2%/EPINEPHRINE INJ 20 ML VIAL ONE; POVIDONE-IODINE 5% OPH PREP SOLN 30 ML ONE; TETRACAINE HCL 0.5% OPH SOLN 4 ML ONE; THROMBIN (BOVINE) TOPICAL 5000 UNIT VIAL ONE
[2018-09-11] MEDS ORDERED: FENTANYL CITRATE INJ/PF 100 MCG/2 ML AMPUL ONE (11:42)
[2018-09-11] MEDS ORDERED: PROPOFOL INJ 200 MG/20 ML VIAL IV ONE (11:42)
[2018-09-11] MEDS ORDERED: MIDAZOLAM 2 MG/2 ML INJ ONE (11:42)
[2018-09-11] MEDS: NEO/POLYMYX B SULF/DEXAMETH OPH OINTMENT 3.5 GM ONE ×2 (12:52)
--- NOTE | 2018-09-11 23:17 | [facility]ARE OPERATIVE REPORT E ---
[facility] Operative Report NAME: RACHEAL ALBA AGE: 67Y DATE OF SURGERY: 09/11/2018 ROOM: PREOPERATIVE DIAGNOSIS: Bilateral upper eyelid dermatochalasis with visual field loss. POSTOPERATIVE DIAGNOSIS: Bilateral upper eyelid dermatochalasis with visual field loss. OPERATION: Bilateral upper eyelid blepharoplasty. SURGEON: ELIESER HUERTA M.D. ANESTHESIA: Local with MAC. INDICATIONS FOR SURGERY: Drooping of the eyelids blocking her peripheral vision and having to use her fingers to hold her eyelids open. PROCEDURE: The patient was brought to the operating room and both eyes were sterilely prepped in the usual manner. Under monitored anesthesia care, a marking pen was used to adilson the upper eyelid crease and 0.3 mm forceps were used to estimate the excess upper eyelid skin to be excised. This was marked in an elliptical fashion. Local anesthesia was administered. This consisted of 3 mL of 2% Xylocaine with epinephrine mixed with 0.75% Marcaine. This was equally spaced to both upper lids and diffused with a Q-Tip. Attention was directed to the left upper lid where the elliptical piece of skin was removed. Hemostasis was obtained with bipolar cautery. The orbital septum was opened and prolapsed retroseptal fat was grasped with a hemostat, cut and cauterized. Thrombin was placed on the incision. An identical procedure was performed on the right upper lid. Wound closure was completed with 3 interrupted 6-0 silk sutures equally spaced to the lid, taking a deep bite of fascia in both upper lids and wound closure was completed with running 6-0 nylon suture on both upper lids. There was full closure and good hemostasis at the end of the surgery. Maxitrol ointment was placed on both upper lids. The patient tolerated the procedure well and sent to the recovery room in good condition. DICTATING PHYSICIAN: ELIESER HUERTA M.D. [id number] PHY#: [id number] ID: [id number] JOB#: [id number] ACCT: [id number] cc:ELIESER HUERTA M.D. >
--- NOTE | 2018-09-11 23:22 | [facility]ARE DISCHARGE SUMMARY E ---
[facility] Discharge Summary NAME: RACHEAL ALBA AGE: 67Y ADMITTED: 09/11/2018 DISCHARGED: HOSPITAL COURSE: The patient is a 67-year-old lady who underwent uneventful upper eyelid blepharoplasty on 09/11/2018. She will be discharged to home. She was instructed to resume preoperative medications. She was also instructed to keep the head of her bed elevated 45 degrees, to use a blepharoplasty ice pack 10 minutes out of every hour while awake, and to use Maxitrol ointment to both upper lids twice a day. She will follow up in my office in 1 week. DICTATING PHYSICIAN: ELIESER HUERTA M.D. [id number] PHY#: [id number] ID: [id number] JOB#: [id number] ACCT: [id number] cc:ELIESER HUERTA M.D. >
== END 2018-09-11 13:40 | disposition home or self-care (01) ==
LOC: SC 10:30
PROVIDERS: ATTEND Ophthalmology
DX: H02.831 Dermatochalasis of right upper eyelid (principal); H02.834 Dermatochalasis of left upper eyelid; H53.453 Other localized visual field defect, bilateral; Z79.82 Long term (current) use of aspirin; Z79.899 Other long term (current) drug therapy; Z79.01 Long term (current) use of anticoagulants; Z79.84 Long term (current) use of oral hypoglycemic drugs; Z79.51 Long term (current) use of inhaled steroids; M06.9 Rheumatoid arthritis, unspecified; Z87.891 Personal history of nicotine dependence; E11.9 Type 2 diabetes mellitus without complications; K21.9 Gastro-esophageal reflux disease without esophagitis; J45.909 Unspecified asthma, uncomplicated; I11.9 Hypertensive heart disease without heart failure; I49.9 Cardiac arrhythmia, unspecified
CPT/HCPCS: 15823; 82962; J2250; J3490 ×7; J3010; J2704; 103; J0171

== ENCOUNTER 2018-12-16 14:55 | Emergency (ER) | payer MEDICARE, OTHER ==
[2018-12-16 15:03] VITALS: BP 134/54
[2018-12-16] MEDS ORDERED: VALACYCLOVIR HCL 500 MG TABLET PO ONE (15:37)
[2018-12-16] MEDS ORDERED: IBUPROFEN 800 MG TABLET PO ONE (15:57)
--- NOTE | 2018-12-16 16:02 | ER Document Report ---
ED Skin Rash/Insect Bite/Abscs - General Chief Complaint: Skin Problem Stated Complaint: RASH Time Seen by Provider: 12/16/18 15:24 Primary Care Provider: RISHABH REYES MD [Primary Care Provider] - Follow up tomorrow Mode of Arrival: Ambulatory Information source: Patient Notes: 67-year-old female presents to ED for complaint of blistering rash to her lower back on the right side to the middle going across the buttocks with pain down her right leg. She states it is making it difficult for her to sleep. She does not have any drainage she states it is painful and itchy. She states it has been going on for about 2 days. She states is extremely painful. She is alert oriented respirations regular and unlabored speaking in full sentences. TRAVEL OUTSIDE OF THE [place] IN LAST 30 DAYS: No COUNTRY TRAVELED TO/FROM: [facility] Patient complains to provider of: Skin rash/lesion - Very tender painful to the right side of her buttocks lower back with pain down her right leg Onset: Other - 2 days Onset/Duration: Gradual, Persistent Quality of pain: Other - Sharp burning Severity: Moderate Pain Level: 3 Skin Character: Erythema, Rash, Vesicular - Herpetiform Quality of rash: Itchy, Painful, Burning Identify cause: Yes - Shingles Exacerbated by: Movement Relieved by: Denies Similar symptoms previously: No Recently seen / treated by doctor: No - Related Data Allergies/Adverse Reactions: No Known Allergies Allergy (Verified 12/16/18 14:57) Past Medical History - General Information source: Patient - Social History Smoking Status: Former Smoker Chew tobacco use (# tins/day): No Frequency of alcohol use: Occasional Drug Abuse: None Lives with: Family Family History: COPD Patient has suicidal ideation: No Patient has homicidal ideation: No - Past Medical History Cardiac Medical History: Reports: Hx Congestive Heart Failure, Hx Hypercholesterolemia Denies: Hx Hypertension - BP MEDS FOR HEART Pulmonary Medical History: Reports: Hx Asthma - DUONEBS DAILY IN THE SUMMER, Hx Bronchitis, Hx COPD, Hx Pneumonia EENT Medical History: Reports: None Neurological Medical History: Reports: None Endocrine Medical History: Reports: None Renal/ Medical History: Reports: None Malignancy Medical History: Reports: None GI Medical History: Reports: Hx Colonoscopy, Hx Endoscopy Musculoskeletal Medical History: Reports Hx Arthritis - RA Skin Medical History: Reports None Psychiatric Medical History: Reports: None Traumatic Medical History: Reports: None Infectious Medical History: Reports: None Past Surgical History: Reports: Hx Cardiac Surgery - heart muscle, Hx Coronary Artery Bypass Graft, Hx Open Heart Surgery - 2010, Other - Cardiac heart muscle surgery. Patient describes history of myomectomy. - Immunizations Hx Diphtheria, Pertussis, Tetanus Vaccination: Yes Hx Pneumococcal Vaccination: 08/02/14 Review of Systems - Review of Systems Constitutional: No symptoms reported EENT: No symptoms reported Cardiovascular: No symptoms reported Respiratory: No symptoms reported Gastrointestinal: No symptoms reported Genitourinary: No symptoms reported Female Genitourinary: No symptoms reported Musculoskeletal: No symptoms reported Skin: No symptoms reported Hematologic/Lymphatic: No symptoms reported Neurological/Psychological: No symptoms reported -: Yes All other systems reviewed and negative Physical Exam - Vital signs Vitals: Temp Pulse Resp BP Pulse Ox 98.9 F 78 18 134/54 H 97 12/16/18 15:02 12/16/18 15:02 12/16/18 15:02 12/16/18 15:02 12/16/18 15:02 Interpretation: Normal - General General appearance: Appears well, Alert - HEENT Head: Normocephalic, Atraumatic Eyes: Normal Pupils: PERRL - Respiratory Respiratory status: No respiratory distress Chest status: Nontender Breath sounds: Normal Chest palpation: Normal - Cardiovascular Rhythm: Regular Heart sounds: Normal auscultation Murmur: No - Abdominal Inspection: Normal Distension: No distension Bowel sounds: Normal Tenderness: Nontender Organomegaly: No organomegaly - Back Back: Normal, Nontender - Extremities General upper extremity: Normal inspection, Nontender, Normal color, Normal ROM, Normal temperature General lower extremity: Normal inspection, Nontender, Normal color, Normal ROM, Normal temperature, Normal weight bearing. No: Estrellita's sign - Neurological Neuro grossly intact: Yes Cognition: Normal Orientation: AAOx4 [place] Coma Scale Eye Opening: Spontaneous [place] Coma Scale Verbal: Oriented [place] Coma Scale Motor: Obeys Commands Christopher Coma Scale Total: 15 Speech: Normal Motor strength normal: LUE, RUE, LLE, RLE Sensory: Normal - Psychological Associated symptoms: Normal affect, Normal mood - Skin Skin Temperature: Warm Skin Moisture: Dry Skin Color: Normal Skin irregularity: Rash - Herpetiform rash to the lower right back with pain down the buttocks and leg Location of irregularity: Back Character of irregularity: Vesicular - Herpetiform Irregularity with: Tenderness Course - Re-evaluation Re-evalutation: 12/16/18 20:[address] Harrison to ensure that he agreed that this was shingles and should start Valtrex. Patient was started with Valtrex and ibuprofen and discharged home with prescriptions for Valtrex. She was instructed to follow-up with primary care doctor tomorrow. Patient verbalized understanding and agreement with treatment plan. - Vital Signs Vital signs: Temp Pulse Resp BP Pulse Ox 98.9 F 78 18 134/54 H 97 12/16/18 15:02 12/16/18 15:02 12/16/18 15:02 12/16/18 15:02 12/16/18 15:02 Discharge - Discharge Clinical Impression: Shingles Qualifiers: Herpes zoster complications: without complications Qualified Code(s): B02.9 - Zoster without complications Condition: Stable Disposition: HOME, SELF-CARE Additional Instructions: Shingles You have shingles. Shingles is caused by the chicken pox virus, The virus has been surviving dormant in a nerve cell since you had chicken pox years ago. The virus has spread down a nerve root to reach the skin. Typically, an band-like area of pain and skin sensitivity develops, then small blisters erupt in the area. Shingles lasts two or three weeks, but sometimes leaves persistent pain. You are contagious -- you can give children chicken pox. But you can't give anyone shingles. Antiviral medicines (such as acyclovir or famciclovir) can help, but the rash usually worsens for about a week. Pain medication is often given if the area hurts. Antihistamines such as Benadryl may be necessary for itching if it does not respond to soda baths and calamine lotion. Sometimes cortisone medicine or nerve-block shots are necessary if pain is severe. If the area remains severely painful as the sores heal, or if you suspect an infection developing in the sores, see your doctor. Ibuprofen Ibuprofen is an excellent, safe drug for pain control. In addition, it has potent antiinflammatory effects which are beneficial, especially in the treatment of injuries, arthritis, or tendonitis. It's best to take ibuprofen with food. Persons with ulcer disease or allergy to aspirin should notify their physician of this before taking ibuprofen. Take the medication exactly as prescribed. Don't take additional doses unless instructed to do so by your doctor. If you develop wheezing, shortness of breath, hives, faintness, stomach pain, vomiting, or dark black stools, return for re-evaluation at once. FOLLOW-UP CARE: If you have been referred to a physician for follow-up care, call the physicians office for an appointment as you were instructed or within the next two days. If you experience worsening or a significant change in your symptoms, notify the physician immediately or return to the Emergency Department at any time for re-evaluation. Prescriptions: Ibuprofen [Motrin 600 mg Tablet] 600 mg PO Q8HP PRN #30 tablet PRN Reason: Valacyclovir HCl [Valtrex] 1,000 mg PO TID #21 tablet Referrals: RISHABH REYES MD [Primary Care Provider] - Follow up tomorrow
== END 2018-12-16 16:04 | disposition home or self-care (01) ==
LOC: ER 14:55
DX: B02.9 Zoster without complications (principal); M54.9 Dorsalgia, unspecified; I50.9 Heart failure, unspecified; E78.00 Pure hypercholesterolemia, unspecified; Z95.1 Presence of aortocoronary bypass graft
CPT/HCPCS: 99282; A9270 ×2

== ENCOUNTER → 2019-06-21 | Day surgery (SDC) | payer MEDICARE, OTHER ==
--- NOTE | 2019-06-21 15:35 | RADIOLOGY REPORT (SQ) ---
EXAM DESCRIPTION: CT LEFT LOWER EXTREMITY WITH COMPLETED DATE/TIME: 06/21/2019 3:03 pm REASON FOR STUDY: PAIN IN LEFT ANKLE AND JOINTS OF LEFT FOOT (M25.572) M25.572 PAIN IN LEFT ANKLE A ND JOINTS OF LEFT FOOT COMPARISON: None. TECHNIQUE: CT scan of the left performed with intra-articular contrast. Images reviewed with soft t issue and bone windows. Reconstructed coronal and sagittal MPR images reviewed. All images stored o n PACS. All CT scanners at this facility use dose modulation, iterative reconstruction, and/or weight based d osing when appropriate to reduce radiation dose to as low as reasonably achievable (ALARA). [facility]: Dose Right [facility]: CareDose [facility]: Dose Right [facility]: Teradose 4D [facility]: Helpa RADIATION DOSE: 3.8 mGy. LIMITATIONS: None. FINDINGS: Bones are osteopenic. No fracture. No malalignment at the ankle joint, subtalar joint or intertarsal joints. Contrast was injected into the tibiotalar joint. There is no loose body. Talar dome and tibial plaf ond are intact. No gross disruption of the plantar fascia or Achilles tendon. No calcific tendinopathy. Posterior tibial, flexor hallucis, peroneus brevis and longus, tibialis anterior, extensor hallucis a nd digitorum tendons at the level of the ankle are intact. IMPRESSION: Unremarkable study TECHNICAL DOCUMENTATION: JOB ID: [id number] Quality ID # [id number]: Final reports with documentation of one or more dose reduction techniques (e.g., Au tomated exposure control, adjustment of the mA and/or kV according to patient size, use of iterative reconstruction technique) 2010 [employer]- All Rights Reserved Reading location - IP/workstation name: [email or web address]
--- NOTE | 2019-06-21 15:52 | RADIOLOGY REPORT (SQ) ---
EXAM DESCRIPTION: FLUORO/NEEDLE PLACEMENT COMPLETE DATE/TIME: 06/21/2019 3:42 pm REASON FOR STUDY: PAIN IN LEFT ANKLE AND JOINTS OF LEFT FOOT (M25.572) M25.572 PAIN IN LEFT ANKLE A ND JOINTS OF LEFT FOOT FINDINGS: Please see combined report for performance of procedure and radiologic supervision and int erpretation. IMPRESSION: Please see combined report for performance of procedure and radiologic supervision and i nterpretation. Reading location - IP/workstation name: [email or web address]
--- NOTE | 2019-06-21 15:52 | RADIOLOGY REPORT (SQ) ---
EXAM DESCRIPTION: ARTHRO ANKLE INJECTION COMPLETED DATE/TIME: 06/21/2019 3:42 pm REASON FOR STUDY: PAIN IN LEFT ANKLE AND JOINTS OF LEFT FOOT (M25.572) M25.572 PAIN IN LEFT ANKLE A ND JOINTS OF LEFT FOOT COMPARISON: None. FLUOROSCOPY TIME: 0.39 minutes 2 Images saved to PACS. LIMITATIONS: None. PROCEDURE: Procedure, risks, benefits and alternatives explained to patient who then gave written co nsent. The left ankle was marked and a time out was called for correct marking verification. Entry site marked using fluoroscopic guidance. Ankle prepped and draped using sterile technique. Local an esthesia achieved using 1% lidocaine injection. Hypodermic needle introduced into the joint space un rojelio direct fluoroscopic visualization. Non-ionic contrast instilled to confirm intra-articular posit ion. Additional dilute non-ionic contrast instilled. Needle removed and entry site covered with virgin[place] rile bandage. No immediate complications noted. TECHNIQUE: Digital images acquired during fluoroscopy and stored on PACS. Patient immediately take n to the CT suite for additional imaging. INJECTION LOCATION: Left ankle. CONTRAST TYPE AND AMOUNT: Omnipaque 350, saline mixture, 7 mL IMPRESSION: SUCCESSFUL NEEDLE PLACEMENT AND INJECTION FOR LEFT ANKLE CT ARTHROGRAM. COMMENT: Quality ID [id number]: Final reports for procedures using fluoroscopy that document radiation exp osure indices, or exposure time and number of fluorographic images (if radiation exposure indices are not available) TECHNICAL DOCUMENTATION: JOB ID: [id number] [employer]- All Rights Reserved Reading location - IP/workstation name: [email or web address]
== END ==
LOC: RAD 13:54
PROVIDERS: ATTEND Orthopaedic Surgery
DX: M25.572 Pain in left ankle and joints of left foot (principal)
CPT/HCPCS: 27648; 77002

== ENCOUNTER → 2019-09-06 | Outpatient (CLI) | payer MEDICARE, OTHER ==
--- NOTE | 2019-09-06 16:41 | RADIOLOGY REPORT (SQ) ---
EXAM DESCRIPTION: CHEST 2 VIEWS COMPLETED DATE/TIME: 09/06/2019 3:58 pm REASON FOR STUDY: (R05)COUGH COMPARISON: 11/24/2017 EXAM PARAMETERS: NUMBER OF VIEWS: two views TECHNIQUE: Digital Frontal and Lateral radiographic views of the chest acquired. RADIATION DOSE: NA LIMITATIONS: none FINDINGS: LUNGS AND PLEURA: Stable chronic changes within the right middle lobe and lingula. Superi mposed airspace disease not entirely excluded. No large effusion. No pneumothorax. MEDIASTINUM AND HILAR STRUCTURES: No masses or contour abnormalities. HEART AND VASCULAR STRUCTURES: Enlarged, stable. BONES: No acute findings. HARDWARE: Left-sided cardiac pacer, leads overlying right atrium and right ventricle. Sternotomy gem nges. Loop recorder overlies left chest. OTHER: No other significant finding. IMPRESSION: Persistent chronic right middle lobe and lingular opacities, similar to multiple priors. TECHNICAL DOCUMENTATION: JOB ID: [id number] [employer]- All Rights Reserved Reading location - IP/workstation name: [email or web address]
== END ==
LOC: RAD 15:38
PROVIDERS: ATTEND Family Medicine
DX: I51.7 Cardiomegaly (principal); R05 Cough
CPT/HCPCS: 71046

== ENCOUNTER → 2019-12-19 | Outpatient (CLI) | payer MEDICARE, OTHER ==
--- NOTE | 2019-12-19 14:46 | RADIOLOGY REPORT (SQ) ---
EXAM DESCRIPTION: CHEST 2 VIEWS COMPLETED DATE/TIME: 12/19/2019 2:39 pm REASON FOR STUDY: R05 COUGH R05 COUGH COMPARISON: 09/06/2019 NUMBER OF VIEWS: Two view TECHNIQUE: Frontal and lateral radiographic images of the chest acquired. LIMITATIONS: None. FINDINGS: LUNGS AND PLEURA: Stable in appearance with persistent basilar infiltrates. No effusions. MEDIASTINUM AND HILAR STRUCTURES: Stable heart size and mediastinal structures. HEART AND VASCULAR STRUCTURES: Heart size is stable. Chronic central vascular congestion. BONES: No acute findings. HARDWARE: Unchanged. OTHER: No other significant finding. IMPRESSION: Persistent chronic basilar infiltrates and chronic interstitial edema. No interval espinoza ge. TECHNICAL DOCUMENTATION: JOB ID: [id number] 2010 [employer]- All Rights Reserved Reading location - IP/workstation name: [email or web address]
== END ==
LOC: RAD 14:23
PROVIDERS: ATTEND Physician Assistant
DX: R05 Cough (principal)
CPT/HCPCS: 71046